=== PATIENT | female | born 1945 | race Caucasian/White ===

== ENCOUNTER 2017-05-11 07:12 | Inpatient (IN) | payer BC, MEDICARE ==
[2017-05-11] VITALS (19 sets, daily range): BP systolic 113–175; BP diastolic 59–94; PULSE 53–97; RESP 16–17; TEMP 96.7–98.4; O2SAT 95–100
[~2017-05-11 07:12] MED LIST: ACET325 PO; ACTO5TAB PO; BACL20TA PO; CALC250T PO; DIAZ5 PO; DILA2TAB4 PO; FISH1000 PO; FOLI400T30 PO; GABA300 PO; RALO1TAB13 PO; TRAZ100 PO; VITA100T15 PO; VITA250T32 PO; VITA400C28 PO
--- NOTE | 2017-05-11 07:21 | PD ---
HPI Chief Complaint: altered mental status Time Seen by Provider: 07:16 Travel History International Travel<30 days: No Contact w/Intl Traveler<30days: No Traveled to known affect area: No History of Present Illness HPI 71-year-old female patient presents to the ER today brought in by EMS because neighbors found her down on the ground, unresponsive. When EMS got there, they found that she was breathing was shallow respirations at 10 breaths per minute and intubated her for airway protection. She had fairly little response. She is intubated and unresponsive in the ER. She was last seen normal at dinner half ago. Modifying Factors: None Associated Signs & Symptoms: Unresponsive, intubated Risk Factors: Elderly PFSH Past Medical History Blood Disorders: No Cancer: Yes (LEFT BREAST) Diabetes: No Glaucoma: No Hepatitis: No Hiatal Hernia: No Hypertension: No Thyroid Disease: No Tubal Ligation: Yes Past Surgical History Abdominal Surgery: Yes (GASTRIC RESECTION WITH VAGOTOMY) Gynecologic Surgery: Yes (LT MASTECTOMY WITH RECONSTRUCTION '94 TUBAL LIGATION) Pacemaker: No Social History Alcohol Use: No Tobacco Use: Yes (ONE PPD) Allergies-Medications (Allergen,Severity, Reaction): Coded Allergies: Aspirin (Unverified Allergy, Mild, STOMACH IRRITATION, 05/05/11) No Known Allergies (Verified , 05/05/11) Reported Meds & Prescriptions Reported Meds & Active Scripts Active Active Prescriptions or Reported Medications Unobtainable Review of Systems ROS Limitations: Intubated, Altered Mental Status Physical Exam Narrative GENERAL: Thin elderly white female patient who is intubated, unresponsive to painful stimuli. SKIN: Focused skin assessment warm/dry. HEAD: Atraumatic. Normocephalic. EYES: Pupils equal and round. No scleral icterus. No injection or drainage. ENT: No nasal bleeding or discharge. Mucous membranes pink and moist. NECK: Trachea midline. No JVD. CARDIOVASCULAR: Regular rate and rhythm. No murmur appreciated. RESPIRATORY: No accessory muscle use. Clear to auscultation. Breath sounds equal bilaterally. GASTROINTESTINAL: Abdomen soft, non-tender, nondistended. Hepatic and splenic margins not palpable. MUSCULOSKELETAL: No obvious deformities. No clubbing. No cyanosis. No edema. NEUROLOGICAL: Intubated. Unresponsive to painful stimuli. Data Data Last Documented VS Vital Signs Date Time Temp Pulse Resp B/P Pulse Ox O2 Delivery O2 Flow Rate FiO2 05/11/17 08:30 100 100 05/11/17 07:55 66 16 136/76 05/11/17 07:48 96.7 05/11/17 07:36 Ventilator Orders Electrocardiogram (05/11/17 07:16) Ammonia (05/11/17 07:16) Complete Blood Count With Diff (05/11/17 07:16) Comprehensive Metabolic Panel (05/11/17 07:16) Creatine Kinase (Cpk) (05/11/17 07:16) Prothrombin Time / Inr (Pt) (05/11/17 07:16) Act Partial Throm Time (Ptt) (05/11/17 07:16) Troponin I (05/11/17 07:16) Thyroid Stimulating Hormone (05/11/17 07:16) Urinalysis - C+S If Indicated (05/11/17 07:16) Arterial Blood Gas (Abg) (05/11/17 07:16) Blood Culture (05/11/17 07:16) Chest, Single Ap (05/11/17 07:16) Ct Brain W/O Iv Contrast(Rout) (05/11/17 07:16) Blood Glucose (05/11/17 07:16) Ecg Monitoring (05/11/17 07:16) Iv Access Insert/Monitor (05/11/17 07:16) Oximetry (05/11/17 07:16) Urinary Catheter Insert/Apply (05/11/17 07:16) Sodium Chloride 0.9% Flush (Ns Flush) (05/11/17 07:30) Drug Screen, Random Urine (05/11/17 07:16) Alcohol (Ethanol) (05/11/17 07:16) Propofol 1000 Mg/100 Ml Inj (Diprivan 10 (05/11/17 07:51) Propofol 200 Mg/20 Ml Inj (Diprivan 200 (05/11/17 08:00) Propofol 1000 Mg/100 Ml Inj (Diprivan 10 (05/11/17 08:00) Pelvis, Ap Only (Routine) (05/11/17 07:56) CKMB (05/11/17 07:30) CKMB% (05/11/17 07:30) Sodium Chlor 0.9% 1000 Ml Inj (Ns 1000 M (05/11/17 09:15) Potassium, Serum (K) (05/11/17 09:07) Admit Order (Ed Use Only) (05/11/17 09:34) Labs Laboratory Tests Test 05/11/17 05/11/17 05/11/17 07:30 07:45 09:10 White Blood Count 15.9 TH/MM3 Red Blood Count 4.23 MIL/MM3 Hemoglobin 14.7 GM/DL Hematocrit 42.1 % Mean Corpuscular Volume 99.4 FL Mean Corpuscular Hemoglobin 34.7 PG Mean Corpuscular Hemoglobin 34.9 % Concent Red Cell Distribution Width 12.7 % Platelet Count 325 TH/MM3 Mean Platelet Volume 8.3 FL Neutrophils (%) (Auto) 88.2 % Lymphocytes (%) (Auto) 3.7 % Monocytes (%) (Auto) 8.0 % Eosinophils (%) (Auto) 0.0 % Basophils (%) (Auto) 0.1 % Neutrophils # (Auto) 14.0 TH/MM3 Lymphocytes # (Auto) 0.6 TH/MM3 Monocytes # (Auto) 1.3 TH/MM3 Eosinophils # (Auto) 0.0 TH/MM3 Basophils # (Auto) 0.0 TH/MM3 CBC Comment DIFF FINAL Differential Comment Prothrombin Time 10.4 SEC Prothromb Time International 0.9 RATIO Ratio Activated Partial 26.0 SEC Thromboplast Time Ammonia 16 MCMOL/L Urine Color YELLOW Urine Turbidity CLEAR Urine pH 6.5 Urine Specific [place] 1.014 Urine Protein TRACE mg/dL Urine Glucose (UA) NEG mg/dL Urine Ketones 10 mg/dL Urine Occult Blood NEG Urine Nitrite NEG Urine Bilirubin NEG Urine Urobilinogen LESS THAN 2.0 MG/DL Urine Leukocyte Esterase NEG Urine RBC LESS THAN 1 /hpf Urine WBC 1 /hpf Microscopic Urinalysis Comment CATH-CULT NOT IND Urine Opiates Screen NEG Urine Barbiturates Screen NEG Urine Amphetamines Screen NEG Urine Benzodiazepines Screen POS Urine Cocaine Screen NEG Urine Cannabinoids Screen NEG Sodium Level 129 MEQ/L Potassium Level 6.5 MEQ/L Chloride Level 97 MEQ/L Carbon Dioxide Level 27.9 MEQ/L Anion Gap 4 MEQ/L Blood Urea Nitrogen 24 MG/DL Creatinine 1.35 MG/DL Estimat Glomerular Filtration 39 ML/MIN Rate Random Glucose 140 MG/DL Calcium Level 9.3 MG/DL Total Bilirubin 0.3 MG/DL Aspartate Amino Transf 45 U/L (AST/SGOT) Alanine Aminotransferase 31 U/L (ALT/SGPT) Alkaline Phosphatase 112 U/L Total Creatine Kinase 528 U/L Creatine Kinase MB 17.4 NG/ML Creatine Kinase MB % 3.3 % Troponin I LESS THAN 0.02 NG/ML Total Protein 8.0 GM/DL Albumin 4.1 GM/DL Thyroid Stimulating Hormone 0.596 uIU/ML 3rd Gen Ethyl Alcohol Level LESS THAN 3 MG/DL MDM Medical Decision Making Medical Screen Exam Complete: Yes Emergency Medical Condition: Yes Medical Record Reviewed: Yes Interpretation(s) Laboratory Tests Test 05/11/17 05/11/17 05/11/17 07:30 07:45 09:10 White Blood Count 15.9 TH/MM3 (4.0-11.0) Mean Corpuscular Hemoglobin 34.7 PG (27.0-34.0) Neutrophils (%) (Auto) 88.2 % (16.0-70.0) Lymphocytes (%) (Auto) 3.7 % (9.0-44.0) Neutrophils # (Auto) 14.0 TH/MM3 (1.8-7.7) Lymphocytes # (Auto) 0.6 TH/MM3 (1.0-4.8) Monocytes # (Auto) 1.3 TH/MM3 (0-0.9) Urine Ketones 10 mg/dL (NEG) Urine Benzodiazepines Screen POS (NEG) Sodium Level 129 MEQ/L (136-145) Potassium Level 6.5 MEQ/L (3.5-5.1) Chloride Level 97 MEQ/L (98-107) Anion Gap 4 MEQ/L (5-15) Blood Urea Nitrogen 24 MG/DL (7-18) Creatinine 1.35 MG/DL (0.50-1.00) Estimat Glomerular Filtration 39 ML/MIN (>89) Rate Random Glucose 140 MG/DL (74-106) Aspartate Amino Transf 45 U/L (15-37) (AST/SGOT) Total Creatine Kinase 528 U/L (26-192) Creatine Kinase MB 17.4 NG/ML (0.5-3.6) Troponin I LESS THAN 0.02 NG/ML (0.02-0.05) Last 24 hours Impressions Pelvis X-Ray 05/11/17 2826 Signed Impressions: Service Date/Time: Thursday, May 11, 2017 07:58 - CONCLUSION: No definite acute bony injury Jeffery Donaldson MD Head CT 05/11/17715 Signed Impressions: Service Date/Time: Thursday, May 11, 2017 08:32 - CONCLUSION: 1. No acute intracranial abnormality is identified. 2. 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 Jeffery Grace MD Chest X-Ray 05/11/17715 Signed Impressions: Service Date/Time: Thursday, May 11, 2017 07:42 - CONCLUSION: 1. Hyperinflation of both lungs with mild patchy opacity at the left lung base which may represent atelectasis or possible scarring. 2. Nasogastric tube in place and could be advanced at least 8 cm. Anjum Moon MD Differential Diagnosis Unresponsive, intubatedICH versus metabolic issues versus dehydration Narrative Course Initial chest x-ray shows that the ET tube appears to be in place. X-ray of the pelvis did not show any obvious pelvic fractures. Initial lab work was ordered for the patient for further evaluation of her altered mental status. CT of the brain did not reveal any signs of acute intracranial processes. She has an ABG which did not show significant pH ALTERATIONS for significant hypercapnia. Lab work shows elevated potassium but it was hemolyzed and redraw was done. She has significant hyponatremia and IV fluids were initiated. BUN and creatinine also indicates underlying dehydration and some underlying rhabdomyolysis. Patient's white blood cell count was fairly elevated for unknown reason. Chest x-ray did show some mild questionable atelectasis and at this point, my plan would be to admit the patient for further treatment. Case is discussed extensively with Dr. Gil who agrees to admit the patient to ICU. He would like me to also put in CT of the abdomen pelvis and chest for further evaluation of causes of patient's altered mental status. Aggregate critical care time was 30 minutes. Time to perform other separately billable procedures was not included in the critical care time. My time did not include minutes spent treating any other patients simultaneously or on activities that did not directly contribute to the patient's treatment. The services I provided to this patient were to treat and/or prevent clinically significant deterioration that could result in: Respiratory arrest, cardiopulmonary arrest, intracranial bleed, I provided critical care services requiring my management, as noted below: Chart data review, documentation time, medication orders and management, vital sign assessments/reviewing monitor data, ordering and reviewing lab tests, ordering and interpreting/reviewing x-rays and diagnostic studies, care of the patient and discussion of the patient with the admitting physicians. Diagnosis Primary Impression: Endotracheally intubated Additional Impressions: Hyponatremia Altered mental status Admitting Information Admitting Physician Requests: Admit Scripts Unable to Obtain Active Prescriptions or Reported Meds Oralia Jc MD May 11, 2017 07:21
[2017-05-11] MEDS ORDERED: SODIUM CHLORIDE 0.9% FLUSH 5 ML FLUSH IV FLUSH PRN (07:30)
[2017-05-11] MEDS ORDERED: PROPOFOL 1000 MG/100 ML INJ 100 ML ONE (07:51)
[2017-05-11 07:52] LABS: BASOPHIL % 0.1 % (0.0-2.0); HEMATOCRIT 42.1 % (35.0-46.0); HEMO FLAGS DIFF FINAL; LYMPH % 3.7 % (9.0-44.0); LYMPHOCYTE # 0.6 TH/MM3 (1.0-4.8); MEAN CELL VOLUME 99.4 FL (80.0-100.0); MEAN CORPUSCULAR HEMOGLOBIN 34.7 PG (27.0-34.0); MEAN CORPUSCULAR HGB CONC 34.9 % (32.0-36.0); NEUT % 88.2 % (16.0-70.0); PLATELET COUNT 325 TH/MM3 (150-450); RED BLOOD COUNT 4.23 MIL/MM3 (4.00-5.30); RED CELL DISTRIBUTION WIDTH 12.7 % (11.6-17.2); WHITE BLOOD COUNT 15.9 TH/MM3 (4.0-11.0)
[2017-05-11 07:57] LABS: INTERNATIONAL NORMALIZED RATIO 0.9 RATIO; PROTHROMBIN TIME - PATIENT 10.4 SEC (9.8-11.6)
[2017-05-11] MEDS ORDERED: PROPOFOL 1000 MG/100 ML INJ 100 ML IV SCH (08:00)
[2017-05-11] MEDS ORDERED: PROPOFOL 200 MG/20 ML AMP IV ONE (08:00)
--- NOTE | 2017-05-11 08:00 | RADRPT ---
EXAM DATE/TIME: 05/11/2017 07:42 [facility] COMPARISON: No previous studies available for comparison. INDICATIONS : Syncope. MEDICAL HISTORY : None. SURGICAL HISTORY : None. ENCOUNTER: Initial ACUITY: 1 day PAIN SCORE: Non-responsive. LOCATION: Bilateral chest FINDINGS: A single view of the chest demonstrates the lungs to be symmetrically hyperinflated. A nasogastric tu be is present with the tip in the proximal stomach. The side-port is present in the distal esophagus. There are surgical clips in the region the gastroesophageal junction. The patient is status post kyp hoplasty in the upper lumbar spine. There is no evidence of mass, confluent infiltrate or effusion. T here is mild patchy opacity at the left lung base. Surgical clips are present in the left axilla. The cardiomediastinal contours are unremarkable. The osseous structures are otherwise unremarkable. CONCLUSION: 1. Hyperinflation of both lungs with mild patchy opacity at the left lung base which may represent at electasis or possible scarring. 2. Nasogastric tube in place and could be advanced at least 8 cm. Anjum Moon MD on May 11, 2017 at 7:57 Board Certified Radiologist. This report was verified electronically.
[2017-05-11 08:10] LABS: BLOOD, URINE NEG (NEG); COMMENT (UR) CATH-CULT NOT IND; CULTURE IF INDICATED CATH CULTURE NOT IND; GLUCOSE,URINE NEG (NEG); KETONE, URINE 10 mg/dL (NEG); NITRITE,URINE NEG (NEG); PH, URINE 6.5 (5.0-8.5); URINE COLOR YELLOW (YELLW/STRAW)
[2017-05-11 08:36] LABS: ANION GAP 4 MEQ/L (5-15); AST (GOT) 45 U/L (15-37); BICARBONATE 27.9 MEQ/L (21.0-32.0); BLOOD UREA NITROGEN 24 MG/DL (7-18); CHLORIDE 97 MEQ/L (98-107); GLOMERULAR FILTRATION RATE 39 ML/MIN (>89); SODIUM (NA) 129 MEQ/L (136-145)
[2017-05-11 08:45] LABS: ALKALINE PHOSPHATASE 112 U/L (45-117); ALT (GPT) 31 U/L (10-53); CREATINE KINASE 528 U/L (26-192); TOTAL BILIRUBIN ADULT 0.3 MG/DL (0.2-1.0)
[2017-05-11 08:46] LABS: ALCOHOL LESS THAN 3 MG/DL (0-5); POTASSIUM 6.5 MEQ/L (3.5-5.1)
[2017-05-11 09:06] LABS: CKMB 17.4 NG/ML (0.5-3.6)
[2017-05-11] MEDS ORDERED: SODIUM CHLOR 0.9% 1000 ML INJ 1,000 ML IV ONE ×3 (09:15→13:45)
--- NOTE | 2017-05-11 09:16 | RADRPT ---
EXAM DATE/TIME: 05/11/2017 08:32 [facility] COMPARISON: No previous studies available for comparison. INDICATIONS : Unresponsive RADIATION DOSE: 27.68 CTDIvol (mGy) MEDICAL HISTORY : Metastatic, breast. SURGICAL HISTORY : Mastectomy, left. Tubal ligation.Gastric resection ENCOUNTER: Initial ACUITY: 1 day PAIN SCALE: Non-responsive LOCATION: cranial TECHNIQUE: Multiple contiguous axial images were obtained of the head. Using automated exposure control and adj ustment of the mA and/or kV according to patient size, radiation dose was kept as low as reasonably a chievable to obtain optimal diagnostic quality images. DICOM format image data is available electro nically for review and comparison. FINDINGS: CEREBRUM: There is mild cerebral atrophy. Ventricles are normal. There is encephalomalacia in the right basal g anglia related to old ischemic event. There is mild enlargement of the right frontal horn. Calcificat ion is present within the intracranial internal carotid arteries. No evidence of midline shift, mass lesion, hemorrhage or acute infarction. No extra-axial fluid collections are seen. POSTERIOR FOSSA: The cerebellum and brainstem are intact. The 4th ventricle is midline. The cerebellopontine angle i s unremarkable. EXTRACRANIAL: Visualized sinuses are clear. There is fluid pooling in the dependent aspect of the nasopharynx. SKULL: The calvaria is intact. No evidence of skull fracture. CONCLUSION: 1. No acute intracranial abnormality is identified. 2. 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 Jeffery Grace MD on May 11, 2017 at 9:09 Board Certified Radiologist. This report was verified electronically.
--- NOTE | 2017-05-11 09:28 | RADRPT ---
EXAM DATE/TIME: 05/11/2017 07:58 [facility] COMPARISON: No previous studies available for comparison. INDICATIONS : Fall. MEDICAL HISTORY : None. SURGICAL HISTORY : None. ENCOUNTER: Initial ACUITY: 1 day PAIN SCORE: Non-responsive. LOCATION: Bilateral chest FINDINGS: Patient is rotated. I see no definite hip fracture or dislocation. No definite pelvic cortical disrup tion is identified. There are vascular calcifications noted. Mild distention of visualized bowel. CONCLUSION: No definite acute bony injury Jeffery Donaldson MD on May 11, 2017 at 9:25 Board Certified Radiologist. This report was verified electronically.
[2017-05-11] MEDS ORDERED: MISCELLANEOUS NURSING INFORMATION XX SCH (09:45)
[2017-05-11] MEDS ORDERED: RESP: ALBUTEROL 2.5 MG/IPRATROPIUM 0.5 MG NEB (PRN) INH (09:45)
[2017-05-11] MEDS ORDERED: CHLORHEXIDINE GLUCONATE 2 % 1 PACK (2 CLOTHS) TOP PRN (09:45)
[2017-05-11 09:46] LABS: BLOOD GAS BASE EXCESS 3.1 mmol/L (-2-2); BLOOD GAS CARBOXYHEMOGLOBIN 0.3 % (0-4); BLOOD GAS HCO3 27 mmol/L (22-26); BLOOD GAS METHEMOGLOBIN 0.5 % (0-2); BLOOD GAS O2 HGB SATURATION 98 % (90-100); BLOOD GAS PCO2 40 mmHg (38-42); BLOOD GAS PO2 307 mmHG (61-120); BLOOD GAS TOTAL HGB 13.4 G/DL (12.0-16.0); CRITICAL VALUE NO; FIO2 100 %; OXYGEN DEVICE VENTILATOR; TEMP CORR TO 98.6; VENT SETTINGS AC/350/16/+5
[2017-05-11 09:47] LABS: DRAW SITE RT FEMORAL; NUMBER OF ARTERIAL PUNCTURES 1; STAT YES
[2017-05-11] MEDS: RESP: ALBUTEROL 2.5 MG/IPRATROPIUM 0.5 MG NEB (SCH) NEB ×3 (10:01→20:59)
[2017-05-11] MEDS: ENOXAPARIN SODIUM 30 MG/0.3 ML SYRINGE SQ SCH (10:59)
[2017-05-11] MEDS: PIPERACIL-TAZO 3.375 GM PREMIX 50 ML IV SCH ×3 (10:59→22:09)
[2017-05-11] MEDS: SODIUM CHLOR 0.9% 1000 ML INJ 1,000 ML IV SCH ×2 (10:59→16:03)
[2017-05-11] MEDS ORDERED: IODIXANOL 320 MG/ML 10 ML VIAL (for Rad CT) IV ONE (11:45)
--- NOTE | 2017-05-11 12:20 | RADRPT ---
EXAM DATE/TIME: 05/11/2017 11:35 [facility] COMPARISON: No previous studies available for comparison. INDICATIONS : Patient found unresponsive IV CONTRAST: 50 cc Visipaque (iodixanol) IV ; Cumulative dose for multiple exams. ORAL CONTRAST: No oral contrast ingested. RADIATION DOSE: 4.97 CTDIvol (mGy) ; Combined studies - Thorax/Abdomen/Pelvis MEDICAL HISTORY : Non-responsive. SURGICAL HISTORY : Non-responsive. ENCOUNTER: Initial ACUITY: 1 day PAIN SCALE: Non-responsive LOCATION: abdomen TECHNIQUE: Volumetric scanning of the abdomen and pelvis was performed. Using automated exposure control and ad justment of the mA and/or kV according to patient size, radiation dose was kept as low as reasonably achievable to obtain optimal diagnostic quality images. DICOM format image data is available electro nically for review and comparison. FINDINGS: LOWER LUNGS: The visualized lower lungs are clear. LIVER: The intrahepatic biliary ducts are dilated. Common bile is dilated measuring 12 mm. Gallbladder is di stended. Small clip is identified in the dequan hepatis. There are no suspicious space-occupying lesio ns within the liver. SPLEEN: Normal size without lesion. PANCREAS: The main pancreatic duct measures 6 mm. There is no clearly definable pancreatic mass or inflammatory disease. KIDNEYS: Normal in size and shape. There is no mass, stone or hydronephrosis. ADRENAL GLANDS: Within normal limits. VASCULAR: Heavily calcified plaque is present throughout the abdominal aorta. BOWEL/MESENTERY: The stomach, small bowel, and colon demonstrate no acute abnormality. There is no free intraperitone al air or fluid. ABDOMINAL WALL: Within normal limits. RETROPERITONEUM: There is no lymphadenopathy. BLADDER: Hayes catheter is in place. REPRODUCTIVE: Within normal limits. INGUINAL: There is no lymphadenopathy or hernia. MUSCULOSKELETAL: Significant arthropathy is noted in the lower lumbar spine. Bone cement is identified in the L2 verte bral body consistent with prior vertebral body augmentation. CONCLUSION: 1. Dilated biliary tree and main pancreatic duct with associated distention of the gallbladder charac teristic of a distal common bile duct obstructing process. 2. No evidence of a pancreatic mass 3. Post surgical clip is identified in the dequan hepatis which may be related to the patient's obstru ctive process. 4. Side port of nasogastric tube is in the distal esophagus. Ihsan Perdomo MD on May 11, 2017 at 12:08 Board Certified Radiologist. This report was verified electronically.
--- NOTE | 2017-05-11 12:33 | RADRPT ---
EXAM DATE/TIME: 05/11/2017 11:35 [facility] COMPARISON: No previous studies available for comparison. INDICATIONS : Pneumonia IV CONTRAST: 50 cc Visipaque (iodixanol) IV ; Cumulative dose for multiple exams. RADIATION DOSE: 4.97 CTDIvol (mGy) ; Combined studies - Thorax/Abdomen/Pelvis MEDICAL HISTORY : Non-responsive. SURGICAL HISTORY : Non-responsive. ENCOUNTER: Initial ACUITY: 1 day PAIN SCALE: Non-responsive LOCATION: chest TECHNIQUE: Volumetric scanning of the chest was performed. Using automated exposure control and adjustment of t he mA and/or kV according to patient size, radiation dose was kept as low as reasonably achievable to obtain optimal diagnostic quality images. DICOM format image data is available electronically for review and comparison. Follow-up recommendations for detected pulmonary nodules are based at a minimum on nodule size and pa tient risk factors according to Fleischner Society Guidelines. FINDINGS: LUNGS: Small nodular densities are identified in both lungs. The largest measures 7.6 mm and is located in t he posterior costophrenic angle of the right lower lobe. Pleural-based subsegmental airspace disease is identified in the superior segment of the left lo wer lobe. Mild bronchiectasis with peribronchial thickening, inflammation and/or scarring is identified in the right middle lobe and lingula. PLEURA: There is no pleural thickening or pleural effusion. MEDIASTINUM: The heart and great vessels demonstrate no acute abnormality. There is no mediastinal or hilar lymph adenopathy. AXILLAE: Within normal limits. No lymphadenopathy. SKELETAL: Within normal limits for patient age. MISCELLANEOUS: Dilatation of the biliary tree is noted. Collapsed bilateral breast implants are noted. CONCLUSION: 1. Small bilateral noncalcified pulmonary nodules ranging in size up to 7.6 mm. 2. Left lower lobe, right middle lobe and lingular airspace disease 3. No evidence of malignant lymphadenopathy 4. Collapsed bilateral breast implants. 5. Biliary duct dilatation Ihsan Perdomo MD on May 11, 2017 at 12:18 Board Certified Radiologist. This report was verified electronically.
--- NOTE | 2017-05-11 13:09 | HHI.HP ---
[facility] Service Critical Care Medicine Primary Care Physician Unknown Admission Diagnosis altered mental status/intubated/severe hyponatremia Diagnosis: (1) Acute encephalopathy Diagnosis: Principal (2) Acute respiratory failure Diagnosis: Principal (3) Severe sepsis Diagnosis: Principal (4) Acute kidney injury Diagnosis: Principal (5) Acute hyperkalemia Diagnosis: Principal (6) Probable pneumonia Diagnosis: Principal (7) Probable CBD obstruction Diagnosis: Principal (8) Leukocytosis Diagnosis: Principal (9) Rhabdomyolysis Diagnosis: Principal (10) Dehydration Diagnosis: Principal (11) Hyponatremia Diagnosis: Principal Chief Complaint: Unresponsive at home Travel History International Travel<30 Days: No Contact w/Intl Traveler <30 Da: No Traveled to Known Affected Are: No Sepsis Criteria SIRS Criteria (2 or more): Temp > 100.9 or < 96.8, WBC > 12707, < 4000 or > 10 % bands Sepsis Criteria (SIRS+source): Infect source susp/known Severe Sepsis (+one): Acute Oliguria/Renal Failure Criteria Outcome: Meets severe sepsis criteria History of Present Illness Patient is a 71-year-old female with known past medical history of left breast cancer, tobacco abuse. Unfortunately no further history can be obtained as the patient is intubated and there is no family available. According to the ER history, patient was brought in by EMS after neighbors found her down on the floor, unresponsive. She was found with shallow respirations hypopneic and was intubated for airway protection. She was last seen normal about 1-1/2 days ago. In the ER patient remained unresponsive. CT of the head was unremarkable. Abnormal labs included a white count of 15.9 with 88% neutrophils , sodium 129 potassium 6.5, BUN 24 and creatinine of 1.35. CPK was elevated at 528. Patient received IV fluid boluses. Patient's elevated white count and altered mentation was suspicious for sepsis. I have ordered CT chest abdomen pelvis which showed mild chest infiltrates, and evidence of common bile duct obstruction (bilateral dilated biliary tree, main pancreatic duct, and gallbladder dilation). I have started patient on Zosyn 3.375 g every 6 hours, and single dose of vancomycin. Gastroenterology had been consulted. Initial K was 6.5 but this was hemolyzed. Repeat CMP is pending I evaluated patient in ED. patient is clinically dehydrated and remains encephalopathy. Additional fluid boluses ordered and start antibiotics STAT, if not given in ED. Gastroenterology had been consulted for possible common bile duct obstruction Review of Systems ROS Limitations: Intubated, Altered Mental Status Past Family Social History Allergies: Coded Allergies: Aspirin (Unverified Allergy, Mild, STOMACH IRRITATION, 05/05/11) No Known Allergies (Verified , 05/11/17) Past Medical History Left breast cancer Tobacco abuse Past Surgical History Gastric resection with vagotomy Left mastectomy Tubal ligation Reported Medications Unable to obtain Active Ordered Medications Reviewed Family History Unable to obtain Social History Unable to obtain. ER records indicate smoking 1 pk per day Physical Exam Vital Signs Vital Signs Date Time Temp Pulse Resp B/P Pulse Ox O2 Delivery O2 Flow Rate FiO2 05/11/17 12:01 100 05/11/17 11:55 100 40 05/11/17 10:55 53 16 124/72 100 05/11/17 10:55 40 05/11/17 08:30 100 100 05/11/17 07:56 100 05/11/17 07:55 66 16 136/76 100 05/11/17 07:48 96.7 05/11/17 07:36 100 Ventilator 100 05/11/17 07:36 100 Ventilator 100 05/11/17 07:15 79 16 175/94 100 05/11/17 07:10 99 100 05/11/17 07:10 99 Ventilator 100 Physical Exam GENERAL: Thin disheveled elderly white female patient who is intubated, unresponsive SKIN: Warm/dry. HEAD: Atraumatic. Normocephalic. EYES: Pupils equal and round. No injection or drainage. ENT: No nasal bleeding or discharge. Orotracheally intubated NECK: Trachea midline. No JVD. CARDIOVASCULAR: Regular rate and rhythm. No murmur appreciated. RESPIRATORY: No accessory muscle use. Clear to auscultation. Breath sounds equal bilaterally. GASTROINTESTINAL: Abdomen soft, non-tender, nondistended. Hepatic and splenic margins not palpable. MUSCULOSKELETAL: No obvious deformities. No clubbing. No cyanosis. No edema. NEUROLOGICAL: Intubated, sedated with propofol. No spontaneous eye opening on propofol. Intermittently moves all 4 extremities to noxious stimuli Laboratory Laboratory Tests Test 05/11/17 05/11/17 05/11/17 05/11/17 07:30 07:45 09:04 09:10 White Blood Count 15.9 Red Blood Count 4.23 Hemoglobin 14.7 Hematocrit 42.1 Mean Corpuscular Volume 99.4 Mean Corpuscular Hemoglobin 34.7 Mean Corpuscular Hemoglobin 34.9 Concent Red Cell Distribution Width 12.7 Platelet Count 325 Mean Platelet Volume 8.3 Neutrophils (%) (Auto) 88.2 Lymphocytes (%) (Auto) 3.7 Monocytes (%) (Auto) 8.0 Eosinophils (%) (Auto) 0.0 Basophils (%) (Auto) 0.1 Neutrophils # (Auto) 14.0 Lymphocytes # (Auto) 0.6 Monocytes # (Auto) 1.3 Eosinophils # (Auto) 0.0 Basophils # (Auto) 0.0 CBC Comment DIFF FINAL Differential Comment Prothrombin Time 10.4 Prothromb Time International 0.9 Ratio Activated Partial 26.0 Thromboplast Time Ammonia 16 Urine Color YELLOW Urine Turbidity CLEAR Urine pH 6.5 Urine Specific [place] 1.014 Urine Protein TRACE Urine Glucose (UA) NEG Urine Ketones 10 Urine Occult Blood NEG Urine Nitrite NEG Urine Bilirubin NEG Urine Urobilinogen LESS THAN 2.0 Urine Leukocyte Esterase NEG Urine RBC LESS THAN 1 Urine WBC 1 Microscopic Urinalysis Comment CATH-CULT NOT IND Urine Opiates Screen NEG Urine Barbiturates Screen NEG Urine Amphetamines Screen NEG Urine Benzodiazepines Screen POS Urine Cocaine Screen NEG Urine Cannabinoids Screen NEG Blood Gas Puncture Site RT FEMORAL Blood Gas Patient Temperature 98.6 Blood Gas HCO3 27 Blood Gas Base Excess 3.1 Blood Gas Oxygen Saturation 98 Arterial Blood pH 7.44 Arterial Blood Partial 40 Pressure CO2 Arterial Blood Partial 307 Pressure O2 Arterial Blood Oxygen Content 19.0 Arterial Blood 0.3 Carboxyhemoglobin Arterial Blood Methemoglobin 0.5 Blood Gas Hemoglobin 13.4 Oxygen Delivery Device VENTILATOR Blood Gas Ventilator Setting AC/350/16/+5 Blood Gas Inspired Oxygen 100 Sodium Level 129 Potassium Level 6.5 Chloride Level 97 Carbon Dioxide Level 27.9 Anion Gap 4 Blood Urea Nitrogen 24 Creatinine 1.35 Estimat Glomerular Filtration 39 Rate Random Glucose 140 Calcium Level 9.3 Total Bilirubin 0.3 Aspartate Amino Transf 45 (AST/SGOT) Alanine Aminotransferase 31 (ALT/SGPT) Alkaline Phosphatase 112 Total Creatine Kinase 528 Creatine Kinase MB 17.4 Creatine Kinase MB % 3.3 Troponin I LESS THAN 0.02 Total Protein 8.0 Albumin 4.1 Thyroid Stimulating Hormone 0.596 3rd Gen Ethyl Alcohol Level LESS THAN 3 Test 05/11/17 10:00 Lactic Acid Level 0.9 Date/Time Procedure Status Source Growth 05/11/17 07:30 Aerobic Blood Culture Received Blood Peripheral Pending 05/11/17 07:30 Anaerobic Blood Culture Received Blood Peripheral Pending Result Diagram: 05/11/17 0730 05/11/[address] chest: Bilateral infiltrates CT abdomen: Dilated biliary tree, gallbladder and main pancreatic duct indicating distal CBD obstruction Septic Shock Reassessment Heart: Regular rate and rhythm Lungs: Clear Skin: Cold Peripheral Pulses: Weak Right Radial Weak Left Radial Assessment and Plan Assessment and Plan Assessment and Plan NEURO/PSYCH: Acute toxic metabolic encephalopathy - Altered mentation most likely from sepsis. Ct head negative for acute findings - Propofol for sedation and ventilator synchrony if needed - Daily sedation vacation - If not improving check EEG, MRI - Check B12. TSH Ammonia normal RESP: Acute respiratory failure Bilateral pneumonia/aspiration Tobacco abuse, possible COPD - Continue with vent support and keep sat >92% - Ventilator bundle. DuoNeb scheduled and when necessary - Daily SBT starting in 24 hours - CT chest shows mild bilateral infiltrates pneumonia versus aspiration CV: - Monitor HR and BP keep MAP>65mmHg GI: Probable distal biliary obstruction - CT abdomen pelvis shows dilated biliary tree, dilated main pancreatic duct, and dilated gallbladder suggestive of distal gallbladder obstruction - Gastroenterology consulted and further workup per GI - IV pantoprazole, bowel regimen - Keep nothing by mouth : Acute kidney injury- secondary to dehydration Rhabdomyolysis Hyperkalemia - Monitor renal function , I/O's, electrolytes replacement per protocol. - NS boluses x3 and IVF ant 150 ml pr hour - Repeat potassium level prior to treatment ID: Severe sepsis Bilateral pulmonary infiltrates present on admissions indicate the hospital aspiration versus pneumonia Probable common biliary duct obstruction - Start Zosyn and one dose of vancomycin. Levaquin for atypical coverage - Follow-up on sputum blood cultures. Urine for Legionella and pneumococcal antigen HEME: - Monitor CBC, CMP, coags ENDO: - Electrolyte replacement protocol PROPH: Bilateral lower extremity SCDs. SQ Lovenox, Protonix LINES: peripheral IVs CCT 82 min Patient is currently critically ill with severe sepsis and metabolic encephalopathy. Continue aggressive fluid resuscitation and start broad- spectrum antibiotics. GI consulted for probable common bile duct obstruction. Will continue to track family Code Status Full Discussed Condition With Dr. Barrett Problem Qualifiers (1) Leukocytosis: Qualified Code: D72.829 - Leukocytosis, unspecified type (2) Rhabdomyolysis: Levar Gil MD May 11, 2017 13:09
[2017-05-11] MEDS ORDERED: MAGNESIUM SULFATE INJ 2 GM in SODIUM CHLORIDE 0.9% INJ 96 ML IV PRN (13:45)
[2017-05-11] MEDS ORDERED: POTASSIUM PHOSPHATE MONOBASIC 500 MG TAB PO PRN (13:45)
[2017-05-11] MEDS ORDERED: POTASSIUM CHLORIDE 25 MEQ EFFERVESCENT TAB PO PRN (13:45)
[2017-05-11] MEDS ORDERED: POTASSIUM CHLOR 40 MEQ PREMIX 100 ML IV PRN ×2 (13:45)
[2017-05-11] MEDS ORDERED: POTASSIUM PHOSPHATE INJ 30 MMOL in SODIUM CHLOR 0.9% 250 ML INJ 250 ML IV PRN (13:45)
[2017-05-11] MEDS ORDERED: SODIUM PHOSPHATE INJ 30 MMOL in SODIUM CHLOR 0.9% 250 ML INJ 240 ML IV PRN (13:45)
[2017-05-11] MEDS ORDERED: POTASSIUM PHOSPHATE MONOBASIC 500 MG TAB PO/TUBE PRN (13:45)
[2017-05-11] MEDS ORDERED: MAGNESIUM OXIDE 400 MG TAB PO PRN (13:45)
[2017-05-11] MEDS ORDERED: VANCOMYCIN INJ 1,000 MG in SODIUM CHLOR 0.9% 250 ML INJ 250 ML IV ONE (13:45)
[2017-05-11] MEDS ORDERED: POTASSIUM CHLOR 20 MEQ PREMIX 100 ML IV PRN (13:45)
[2017-05-11] MEDS ORDERED: MAGNESIUM SULFATE INJ 4 GM in SODIUM CHLORIDE 0.9% INJ 92 ML IV PRN (13:45)
[2017-05-11 15:28] LABS: MAGNESIUM 1.7 MG/DL (1.5-2.5)
[2017-05-11 15:31] LABS: BICARBONATE 22.3 MEQ/L (21.0-32.0); POTASSIUM 3.2 MEQ/L (3.5-5.1); TOTAL BILIRUBIN ADULT 0.3 MG/DL (0.2-1.0)
--- NOTE | 2017-05-11 15:35 | PD.CONS ---
HPI History of Present Illness This is a 71 year old female with a history of left breast cancer, who was found unresponsive on the floor by her neighbors. She was brought to the ER by [facility]. She arrived with shallow respirations, hyponeic and was subsequently intubated for airway protection. According to the EMR, she was last seen about 1 and a half days ago. She was found to have an elevated WBC. Chest CT ()----> 1. Small bilateral noncalcified pulmonary nodules ranging in size up to 7.6 mm. 2. Left lower lobe, right middle lobe and lingular airspace disease 3. No evidence of malignant lymphadenopathy 4. Collapsed bilateral breast implants. 5. Biliary duct dilatation. CT abdomen and pelvis (05/11/17)-----> 1. Dilated biliary tree and main pancreatic duct with associated distention of the gallbladder characteristic of a distal common bile duct obstructing process. 2. No evidence of a pancreatic mass 3. Post surgical clip is identified in the dequan hepatis which may be related to the patient's obstructive process. 4. Side port of nasogastric tube is in the distal esophagus. GI was consulted for further evaluatin of suspected distal common bile duct obstructing process. She is currently in the ICU, sedated on the ventilator being treated for acute toxic metabolic encephalopathy, acute respiratory failure, bilateral pneumonia/ aspiration, probable distal biliary obstruction, acute kidney injury with electrolyte abnormalities, and rhabdomyolysis. Theresa Paz listed as next of kin /person to notify . Called and left message with her for to return call to discuss possible ERCP. PFSH Past Medical History COPD Hx PNA Hx encephalitis Breast cancer, s/p radical mastectomy with breast reconstruction, and chemotherapy Peptic ulcer disease, s/p partial gastrectomy and vagotomy Chronic pelvic pain Past Surgical History Radial mastectomy with breast reconstruction Tubal ligation Partial gastrectomy and vagotomy Surgery to remove distal part of clavicle after dislocation Steroid injections Coded Allergies: Aspirin (Unverified Allergy, Mild, STOMACH IRRITATION, 05/05/11) No Known Allergies (Verified , 05/11/17) Medications Allergies Coded Allergies Type Severity Reaction Last Updated Verified Aspirin Allergy Mild STOMACH IRRITATION 05/05/11 No No Known Allergies 05/11/17 Yes Active Scripts Medications Dose Route/Sig Days Date Category Active Prescriptions or Reported Medications Unobtainable Rx Family History Father had htn Mother from melanoma, CAD Social History Hx tobacco use. In 2007 note, she had been smoking 1PPD x 30 years. Unknown if currently smoking. Review of Systems ROS Unable to obtain. GI Exam Vitals I&O Vital Signs Date Time Temp Pulse Resp B/P Pulse Ox O2 Delivery O2 Flow Rate FiO2 05/11/17 12:01 100 05/11/17 11:55 100 40 05/11/17 10:55 53 16 124/72 100 05/11/17 10:55 40 05/11/17 08:30 100 100 05/11/17 07:56 100 05/11/17 07:55 66 16 136/76 100 05/11/17 07:48 96.7 05/11/17 07:36 100 Ventilator 100 05/11/17 07:36 100 Ventilator 100 05/11/17 07:15 79 16 175/94 100 05/11/17 07:10 99 100 05/11/17 07:10 99 Ventilator 100 Imaging Last Impressions Chest CT 05/11/17 0936 Signed Impressions: Service Date/Time: Thursday, May 11, 2017 11:35 - CONCLUSION: 1. Small bilateral noncalcified pulmonary nodules ranging in size up to 7.6 mm. 2. Left lower lobe, right middle lobe and lingular airspace disease 3. No evidence of malignant lymphadenopathy 4. Collapsed bilateral breast implants. 5. Biliary duct dilatation Ihsan Perdomo MD Abdomen/Pelvis CT 05/11/17 0936 Signed Impressions: Service Date/Time: Thursday, May 11, 2017 11:35 - CONCLUSION: 1. Dilated biliary tree and main pancreatic duct with associated distention of the gallbladder characteristic of a distal common bile duct obstructing process. 2. No evidence of a pancreatic mass 3. Post surgical clip is identified in the dequan hepatis which may be related to the patient's obstructive process. 4. Side port of nasogastric tube is in the distal esophagus. Ihsan Perdomo MD Pelvis X-Ray 05/11/17 0756 Signed Impressions: Service Date/Time: Thursday, May 11, 2017 07:58 - CONCLUSION: No definite acute bony injury Jeffery Donaldson MD Head CT 05/11/17 0716 Signed Impressions: Service Date/Time: Thursday, May 11, 2017 08:32 - CONCLUSION: 1. No acute intracranial abnormality is identified. 2. 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 Jeffery Grace MD Chest X-Ray 05/11/17 0716 Signed Impressions: Service Date/Time: Thursday, May 11, 2017 07:42 - CONCLUSION: 1. Hyperinflation of both lungs with mild patchy opacity at the left lung base which may represent atelectasis or possible scarring. 2. Nasogastric tube in place and could be advanced at least 8 cm. Anjum Moon MD Laboratory Test 05/11/17 05/11/17 05/11/17 05/11/17 07:30 07:45 09:04 09:10 White Blood Count 15.9 TH/MM3 Red Blood Count 4.23 MIL/MM3 Hemoglobin 14.7 GM/DL Hematocrit 42.1 % Mean Corpuscular Volume 99.4 FL Mean Corpuscular Hemoglobin 34.7 PG Mean Corpuscular Hemoglobin 34.9 % Concent Red Cell Distribution Width 12.7 % Platelet Count 325 TH/MM3 Mean Platelet Volume 8.3 FL Neutrophils (%) (Auto) 88.2 % Lymphocytes (%) (Auto) 3.7 % Monocytes (%) (Auto) 8.0 % Eosinophils (%) (Auto) 0.0 % Basophils (%) (Auto) 0.1 % Neutrophils # (Auto) 14.0 TH/MM3 Lymphocytes # (Auto) 0.6 TH/MM3 Monocytes # (Auto) 1.3 TH/MM3 Eosinophils # (Auto) 0.0 TH/MM3 Basophils # (Auto) 0.0 TH/MM3 CBC Comment DIFF FINAL Differential Comment Prothrombin Time 10.4 SEC Prothromb Time International 0.9 RATIO Ratio Activated Partial 26.0 SEC Thromboplast Time Ammonia 16 MCMOL/L Urine Color YELLOW Urine Turbidity CLEAR Urine pH 6.5 Urine Specific [place] 1.014 Urine Protein TRACE mg/dL Urine Glucose (UA) NEG mg/dL Urine Ketones 10 mg/dL Urine Occult Blood NEG Urine Nitrite NEG Urine Bilirubin NEG Urine Urobilinogen LESS THAN 2.0 MG/DL Urine Leukocyte Esterase NEG Urine RBC LESS THAN 1 /hpf Urine WBC 1 /hpf Microscopic Urinalysis Comment CATH-CULT NOT IND Urine Opiates Screen NEG Urine Barbiturates Screen NEG Urine Amphetamines Screen NEG Urine Benzodiazepines Screen POS Urine Cocaine Screen NEG Urine Cannabinoids Screen NEG Blood Gas Puncture Site RT FEMORAL Blood Gas Patient Temperature 98.6 Blood Gas HCO3 27 mmol/L Blood Gas Base Excess 3.1 mmol/L Blood Gas Oxygen Saturation 98 % Arterial Blood pH 7.44 Arterial Blood Partial 40 mmHg Pressure CO2 Arterial Blood Partial 307 mmHG Pressure O2 Arterial Blood Oxygen Content 19.0 Vol % Arterial Blood 0.3 % Carboxyhemoglobin Arterial Blood Methemoglobin 0.5 % Blood Gas Hemoglobin 13.4 G/DL Oxygen Delivery Device VENTILATOR Blood Gas Ventilator Setting AC/350/16/+5 Blood Gas Inspired Oxygen 100 % Sodium Level 129 MEQ/L Potassium Level 6.5 MEQ/L Chloride Level 97 MEQ/L Carbon Dioxide Level 27.9 MEQ/L Anion Gap 4 MEQ/L Blood Urea Nitrogen 24 MG/DL Creatinine 1.35 MG/DL Estimat Glomerular Filtration 39 ML/MIN Rate Random Glucose 140 MG/DL Calcium Level 9.3 MG/DL Total Bilirubin 0.3 MG/DL Aspartate Amino Transf 45 U/L (AST/SGOT) Alanine Aminotransferase 31 U/L (ALT/SGPT) Alkaline Phosphatase 112 U/L Total Creatine Kinase 528 U/L Creatine Kinase MB 17.4 NG/ML Creatine Kinase MB % 3.3 % Troponin I LESS THAN 0.02 NG/ML Total Protein 8.0 GM/DL Albumin 4.1 GM/DL Thyroid Stimulating Hormone 0.596 uIU/ML 3rd Gen Ethyl Alcohol Level LESS THAN 3 MG/DL Test 05/11/17 05/11/17 10:00 11:55 Lactic Acid Level 0.9 mmol/L Nasal Screen MRSA (PCR) MRSA DETECTED Date/Time Procedure Status Source Growth 05/11/17 07:30 Aerobic Blood Culture Received Blood Peripheral Pending 05/11/17 07:30 Anaerobic Blood Culture Received Blood Peripheral Pending Physical Examination HEENT: Normocephalic; atraumatic CHEST: Course breath sounds. OETT to vent. CARDIAC: ST ABDOMEN: Soft, nondistended, nontender; no hepatosplenomegaly; bowel sounds are present in all four quadrants. EXTREMITIES: No clubbing, cyanosis, or edema. SKIN: Dry skin [employer]: Sedated on vent Assessment and Plan Plan ASSESSMENT: - Dilated biliary tree and main pancreatic duct with associated distention of the galllbladder characteristic of distal common bile duct obstruction. CT abdomen and pelvis (05/11/17)-----> 1. Dilated biliary tree and main pancreatic duct with associated distention of the gallbladder characteristic of a distal common bile duct obstructing process. 2. No evidence of a pancreatic mass 3. Post surgical clip is identified in the dequan hepatis which may be related to the patient's obstructive process. 4. Side port of nasogastric tube is in the distal esophagus. LFTs T. Bili 0.3, AST 45, ALT 31, ALk PHosph 112. Rpt. pending. WBC 15.9. NPO. Levaquin, Zosyn, PPI. Did call daughter Theresa Paz to discuss possible ERCP, left message on voicemail. - Sepsis, likely multifactorial, CT consistent with biliary obstructive process , also found down with emesis bilateral pneumonia/aspiration. Levaquin, Zosyn, aggressive hydration. - Acute respiratory failure, bilateral pneumonia/aspiraiton. hest CT (05/11/17)- ---> 1. Small bilateral noncalcified pulmonary nodules ranging in size up to 7.6 mm. 2. Left lower lobe, right middle lobe and lingular airspace disease 3. No evidence of malignant lymphadenopathy 4. Collapsed bilateral breast implants. 5. Biliary duct dilatation. Vent per CCM. Levaquin, Zosyn. - Acute encephalopathy, per attending. - VERN with multiple electrolyte abnormalities. Creat 1.35, GFR 38, K+ 6.5, Na+ 129. - Rhabodmyolysis, mild. CPK 528. IVF - COPD, Hx chronic pelvic pain, - Hx Breast cancer, s/p radical mastectomy with breast reconstruction, and chemotherapy - Hx PUD, s/p partial gastrectomy and vagotomy PLAN: - Possible ERCP with sphincterotomy, stent placement tomorrow - Obtain consents - NPO - Cont. PPI - Cont. Zosyn/Levaquin - Cont. aggressive hydration - Add lipase to labs - CBC, CMP in am - Supportive care - Further recommendations ot follow based on results of above - Pt seen and examined by Dr. Moon and myself and this note is written on his behalf Cristina Goldberg May 11, 2017 15:35
[2017-05-11] MEDS: LEVOFLOXACIN 750 MG PREMIX INJ 150 ML IV SCH (16:02)
[2017-05-11] MEDS: POTASSIUM CHLOR 20 MEQ PREMIX 100 ML IV PRN ×4 (17:02→23:07)
[2017-05-11] MEDS ORDERED: CALCIUM GLUCONATE INJ 2 GM in SODIUM CHLORIDE 0.9% INJ 100 ML IV ONE (18:00)
[2017-05-11] MEDS: CHLORHEXIDINE 0.12% (ORAL KIT) 15 ML CUP MT SCH (19:53)
[2017-05-11] MEDS: PROPOFOL 1000 MG/100 ML INJ 100 ML IV SCH (20:21)
[2017-05-12] VITALS (52 sets, daily range): BP systolic 87–204; BP diastolic 53–93; PULSE 69–102; RESP 16–38; TEMP 97.4–99.3; O2SAT 97–100
[2017-05-12] MEDS: SODIUM CHLOR 0.9% 1000 ML INJ 1,000 ML IV SCH ×5 (00:30→21:43)
[2017-05-12] MEDS: CHLORHEXIDINE GLUCONATE 2 % 1 PACK (2 CLOTHS) TOP SCH (04:00)
[2017-05-12] MEDS: RESP: ALBUTEROL 2.5 MG/IPRATROPIUM 0.5 MG NEB (SCH) NEB ×4 (04:25→21:17)
--- NOTE | 2017-05-12 05:05 | RADRPT ---
EXAM DATE/TIME: 05/12/2017 03:56 [facility] COMPARISON: CHEST SINGLE AP, May 11, 2017, 7:42. INDICATIONS : Shortness of breath, possible pulmonary disease. MEDICAL HISTORY : Carcinoma, breast. SURGICAL HISTORY : Mastectomy, left. Tubal ligation. Gastric resection with vagotomy ENCOUNTER: Subsequent ACUITY: 2 days PAIN SCORE: Non-responsive. LOCATION: Bilateral chest FINDINGS: A single view of the chest demonstrates the lungs to be symmetrically aerated without evidence of mas s, infiltrate or effusion. Nasogastric tube tip in stomach. Endotracheal tube unchanged. The cardiome diastinal contours are unremarkable. Osseous structures are intact. Kyphoplasty cement within upper lumbar vertebral body. CONCLUSION: Clear lungs. NG tube with tip in stomach. Molina Henry MD on May 12, 2017 at 5:03 Board Certified Radiologist. This report was verified electronically.
[2017-05-12] MEDS: PIPERACIL-TAZO 3.375 GM PREMIX 50 ML IV SCH ×4 (05:23→21:45)
[2017-05-12 06:13] LABS: AUTOMATED NEUTROPHIL # 11.2 TH/MM3 (1.8-7.7); BASOPHIL # 0.1 TH/MM3 (0-0.2); BASOPHIL % 0.4 % (0.0-2.0); EOSINOPHIL % 0.1 % (0.0-4.0); HEMATOCRIT 39.1 % (35.0-46.0); HEMO FLAGS DIFF FINAL; LYMPH % 12.3 % (9.0-44.0); LYMPHOCYTE # 1.8 TH/MM3 (1.0-4.8); MEAN CORPUSCULAR HEMOGLOBIN 34.1 PG (27.0-34.0); MEAN CORPUSCULAR HGB CONC 33.1 % (32.0-36.0); MONO % 12.2 % (0.0-8.0); PLATELET COUNT 308 TH/MM3 (150-450); RED CELL DISTRIBUTION WIDTH 13.3 % (11.6-17.2); WHITE BLOOD COUNT 14.9 TH/MM3 (4.0-11.0)
[2017-05-12 06:58] LABS: ALKALINE PHOSPHATASE 86 U/L (45-117); ALT (GPT) 22 U/L (10-53); ANION GAP 7 MEQ/L (5-15); AST (GOT) 26 U/L (15-37); BICARBONATE 27.1 MEQ/L (21.0-32.0); BLOOD UREA NITROGEN 8 MG/DL (7-18); CHLORIDE 109 MEQ/L (98-107); GLOMERULAR FILTRATION RATE 103 ML/MIN (>89); POTASSIUM 4.7 MEQ/L (3.5-5.1); SODIUM (NA) 143 MEQ/L (136-145); TOTAL BILIRUBIN ADULT 0.3 MG/DL (0.2-1.0)
[2017-05-12] MEDS: MUPIROCIN 2% OINT 1 APPLIC/GM SYR NASAL SCH ×2 (08:15→20:20)
[2017-05-12] MEDS: PANTOPRAZOLE SODIUM 40 MG VIAL IV SCH (08:15)
[2017-05-12] MEDS: CHLORHEXIDINE 0.12% (ORAL KIT) 15 ML CUP MT SCH ×2 (08:15→20:20)
--- NOTE | 2017-05-12 08:20 | HHI.CCPN ---
Subjective Remarks/Hospital Course Patient is a 71-year-old female with known past medical history of left breast cancer, tobacco abuse. Unfortunately no further history can be obtained as the patient is intubated and there is no family available. According to the ER history, patient was brought in by EMS after neighbors found her down on the floor, unresponsive. She was found with shallow respirations hypopneic and was intubated for airway protection. She was last seen normal about 1-1/2 days ago. In the ER patient remained unresponsive. CT of the head was unremarkable. Abnormal labs included a white count of 15.9 with 88% neutrophils , sodium 129 potassium 6.5, BUN 24 and creatinine of 1.35. CPK was elevated at 528. Patient received IV fluid boluses. Patient's elevated white count and altered mentation was suspicious for sepsis. I have ordered CT chest abdomen pelvis which showed mild chest infiltrates, and evidence of common bile duct obstruction (bilateral dilated biliary tree, main pancreatic duct, and gallbladder dilation). I have started patient on Zosyn 3.375 g every 6 hours, and single dose of vancomycin. Gastroenterology had been consulted. Initial K was 6.5 but this was hemolyzed. Repeat CMP is pending. I evaluated patient in ED. patient is clinically dehydrated and remains encephalopathy. Additional fluid boluses ordered and start antibiotics STAT, if not given in ED. Gastroenterology had been consulted for possible common bile duct obstruction SUBJ: 05/12: Patient remains intubated heavily sedated. ERCP planned for today. White count trending down. Daughter gave me history yesterday of possible prescription drug abuse and I believe this might have contributed to the altered mentation. Will attempt weaning trials after ERCP Objective Vital Signs Date Time Temp Pulse Resp B/P Pulse Ox O2 Delivery O2 Flow Rate FiO2 05/12/17 07:37 100 40 05/12/17 06:00 87 17 142/67 05/12/17 04:00 98.7 05/11/17 07:36 Ventilator Intake and Output 05/11/17 05/11/17 05/12/17 08:00 16:00 00:00 Intake Total 315 ml 3020 ml Output Total 550 ml 1450 ml Balance -235 ml 1570 ml Result Diagram: 05/12/17 0526 05/12/17 0526 Other Results Microbiology Date/Time Procedure Status Source Growth 05/11/17 16:00 Legionella Antigen - Final Complete Urine Catheterized Urine PRESUMPTIVE NEGATIVE FOR LEGIONELLA P... 05/11/17 16:00 Streptococcus pneumoniae Antigen (M - Final Complete Urine Catheterized Urine PRESUMPTIVE NEGATIVE FOR STREPTOCOCCU... Laboratory Tests Test 05/11/17 09:04 Blood Gas Puncture Site RT FEMORAL Blood Gas Patient Temperature 98.6 Blood Gas HCO3 27 mmol/L (22-26) Blood Gas Base Excess 3.1 mmol/L (-2-2) Blood Gas Oxygen Saturation 98 % (90-100) Arterial Blood pH 7.44 (7.380-7.420) Arterial Blood Partial 40 mmHg (38-42) Pressure CO2 Arterial Blood Partial 307 mmHG Pressure O2 (61-120) Arterial Blood Oxygen Content 19.0 Vol % (12.0-20.0) Arterial Blood 0.3 % (0-4) Carboxyhemoglobin Arterial Blood Methemoglobin 0.5 % (0-2) Blood Gas Hemoglobin 13.4 G/DL (12.0-16.0) Oxygen Delivery Device VENTILATOR Blood Gas Ventilator Setting AC/350/16/+5 Blood Gas Inspired Oxygen 100 % Imaging CT chest: Bilateral infiltrates CT abdomen: Dilated biliary tree, gallbladder and main pancreatic duct indicating distal CBD obstruction Objective Remarks GENERAL: Thin disheveled elderly white female patient who is intubated, sedated with propofol SKIN: Warm/dry. HEAD: Atraumatic. Normocephalic. EYES: Pupils equal and round. No injection or drainage. ENT: No nasal bleeding or discharge. Orotracheally intubated NECK: Trachea midline. No JVD. CARDIOVASCULAR: Regular rate and rhythm. No murmur appreciated. RESPIRATORY: No accessory muscle use. Clear to auscultation. Breath sounds equal bilaterally. GASTROINTESTINAL: Abdomen soft, non-tender, nondistended. Hepatic and splenic margins not palpable. MUSCULOSKELETAL: No obvious deformities. No clubbing. No cyanosis. No edema. NEUROLOGICAL: Intubated, sedated with propofol. No spontaneous eye opening on propofol. Moves all extremities purposefully when sedation is held Urinary Catheter: Yes Assessment to: Continue A/P Assessment and Plan Assessment and Plan NEURO/PSYCH: Acute toxic metabolic encephalopathy Probable benzodiazepine overdose Probable prescription drug abuse - Altered mentation most likely from benzodiazepine overdose, less likely sepsis. Ct head negative for acute findings - Propofol for sedation and ventilator synchrony if needed. Daily sedation vacation - Mentation appears to be improving - B12, TSH Ammonia normal RESP: Acute respiratory failure Bilateral pneumonia/aspiration Tobacco abuse, possible COPD - Continue with vent support and keep sat >90% - Ventilator bundle. DuoNeb scheduled and when necessary - SBT with possible extubation today after ERCP - CT chest shows mild bilateral infiltrates pneumonia versus aspiration-on broad -spectrum antibiotics CV: - Monitor HR and BP keep MAP>65mmHg GI: Probable distal biliary obstruction - CT abdomen pelvis shows dilated biliary tree, dilated main pancreatic duct, and dilated gallbladder suggestive of distal gallbladder obstruction - Gastroenterology consulted ERCP today - IV pantoprazole, bowel regimen - Keep nothing by mouth : Acute kidney injury- secondary to dehydration Rhabdomyolysis Hypokalemia - Monitor renal function , I/O's, electrolytes replacement per protocol. - NS boluses x3 and IVF ant 150 ml pr hour - Electrolyte replacement per protocol ID: Severe sepsis Bilateral pulmonary infiltrates present on admissions indicate the hospital aspiration versus pneumonia Probable common biliary duct obstruction - Currently on Zosyn and Levaquin. Received one dose of vancomycin. - Follow-up on sputum blood cultures. Urine for Legionella and pneumococcal antigen neg HEME: - Monitor CBC, CMP, coags ENDO: - Electrolyte replacement protocol PROPH: Bilateral lower extremity SCDs. SQ Lovenox, Protonix LINES: peripheral IVs Level 3 Patient is remains critically ill with sepsis and metabolic encephalopathy, but stable. Continue aggressive fluid resuscitation and broad-spectrum antibiotics. ERCP today Levar Gil MD May 12, 2017 08:20
[2017-05-12] MEDS: ENOXAPARIN SODIUM 30 MG/0.3 ML SYRINGE SQ SCH (11:00)
[2017-05-12] MEDS: PROPOFOL 1000 MG/100 ML INJ 100 ML IV SCH ×2 (13:09→20:20)
--- NOTE | 2017-05-12 17:51 | PD.PROCEDR ---
GI Procedure REFERRING PHYSICIAN Dr. Gil PROCEDURE PERFORMED ERCP followed by an EGD INDICATION FOR PROCEDURE Dilated biliary system PROCEDURE: The procedure, risks and benefits were discussed with Ms. Stoner and informed consent was obtained. Anesthesia sedated her with Diprivan. She was placed in the left lateral decubitus position. EGD: The Pentax videoscope was introduced through the oropharynx and advanced to the second portion of the duodenum under direct visualization. Retroflexion was performed in the stomach. FINDINGS: I was unable to find the ampulla with the ERCP scope and so an EGD was done to evaluate the anatomy properly The esophagus appeared to be unremarkable with normal limits The stomach there was a partial gastrectomy with what looks like a BII hookup the gastric mucosa appears to be somewhat erythemic consistent with gastritis but no ulcers or erosions the anastomosis appeared to be wide open And both the efferent and afferent loops were both unremarkable and within normal limits ERCP: Patient was placed in a prone position. The Pentax videoscope was introduced through the oropharynx and advanced to the small bowel but due to the surgical changes was unable to find the ampulla ESTIMATED BLOOD LOSS: None SPECIMENS REMOVED: None COMPLICATIONS: None IMPRESSION: Biliary system dilation etiology unclear Gastritis Surgical changes consistent with a BII or gastric bypass PLAN: We'll proceed with an MRCP Continue supportive care Leandro Hitchcock MD May 12, 2017 17:51
--- NOTE | 2017-05-12 18:08 | EKG ---
Date Performed: 05/11/2017 Time Performed: 07:40:04 PTAGE: 71 years EKG: Sinus rhythm WITH SINUS ARRHYTHMIA LEFT ANTERIOR FASCICULAR BLOCK ST ELEVATION CONSISTENT WITH INJURY, PERICARDIT IS, OR EARLY REPOLARIZATION Compared to previous tracing, voltage has increased signficantly. ST calderón ges are new Clinical correlation is recommended ABNORMAL ECG PREVIOUS TRACING : 11/26/2008 09.36 DOCTOR: Donn Henry Interpretating Date/Time 05/12/2017 18:07:26
[2017-05-13] VITALS (35 sets, daily range): BP systolic 115–176; BP diastolic 60–94; PULSE 79–119; RESP 18–37; TEMP 97.8–100.3; O2SAT 96–98
[2017-05-13] MEDS: CHLORHEXIDINE GLUCONATE 2 % 1 PACK (2 CLOTHS) TOP SCH (04:00)
[2017-05-13] MEDS: RESP: ALBUTEROL 2.5 MG/IPRATROPIUM 0.5 MG NEB (SCH) NEB ×4 (04:32→20:49)
[2017-05-13] MEDS: PROPOFOL 1000 MG/100 ML INJ 100 ML IV SCH ×3 (04:53→23:39)
[2017-05-13] MEDS: PIPERACIL-TAZO 3.375 GM PREMIX 50 ML IV SCH ×4 (05:17→21:49)
[2017-05-13] MEDS: SODIUM CHLOR 0.9% 1000 ML INJ 1,000 ML IV SCH ×3 (05:17→21:50)
[2017-05-13 06:10] LABS: HEMATOCRIT 34.7 % (35.0-46.0); MEAN CELL VOLUME 101.3 FL (80.0-100.0); MEAN CORPUSCULAR HEMOGLOBIN 34.2 PG (27.0-34.0); MEAN CORPUSCULAR HGB CONC 33.7 % (32.0-36.0); PLATELET COUNT 260 TH/MM3 (150-450); RED BLOOD COUNT 3.42 MIL/MM3 (4.00-5.30); RED CELL DISTRIBUTION WIDTH 13.6 % (11.6-17.2); REVIEW FLAG FINAL; WHITE BLOOD COUNT 16.7 TH/MM3 (4.0-11.0)
[2017-05-13 06:39] LABS: ALKALINE PHOSPHATASE 83 U/L (45-117); ALT (GPT) 19 U/L (10-53); ANION GAP 12 MEQ/L (5-15); AST (GOT) 26 U/L (15-37); BLOOD UREA NITROGEN 4 MG/DL (7-18); CHLORIDE 105 MEQ/L (98-107); GLOMERULAR FILTRATION RATE 158 ML/MIN (>89); POTASSIUM 3.4 MEQ/L (3.5-5.1); SODIUM (NA) 140 MEQ/L (136-145); TOTAL BILIRUBIN ADULT 0.4 MG/DL (0.2-1.0)
[2017-05-13] MEDS: MUPIROCIN 2% OINT 1 APPLIC/GM SYR NASAL SCH ×2 (07:55→19:35)
[2017-05-13] MEDS: PANTOPRAZOLE SODIUM 40 MG VIAL IV SCH (07:55)
[2017-05-13] MEDS: CHLORHEXIDINE 0.12% (ORAL KIT) 15 ML CUP MT SCH ×2 (07:56→19:35)
[2017-05-13] MEDS: POTASSIUM CHLOR 20 MEQ PREMIX 100 ML IV PRN (08:01)
--- NOTE | 2017-05-13 10:42 | HHI.GIFU ---
Subjective Remarks Sedated on vent. No acute distress noted. (Megan Peres) Objective Vitals I&O Vital Signs Date Time Temp Pulse Resp B/P Pulse Ox O2 Delivery O2 Flow Rate FiO2 05/13/17 09:50 97 40 05/13/17 09:19 40 05/13/17 09:19 97 40 05/13/17 08:20 98 40 05/13/17 06:00 88 05/13/17 04:32 98 40 05/13/17 04:00 40 05/13/17 04:00 83 05/13/17 04:00 99.4 83 18 147/67 97 05/13/17 02:45 16 05/13/17 02:00 80 05/13/17 00:10 97 40 05/13/17 00:00 88 05/13/17 00:00 99.8 88 21 156/70 98 05/13/17 00:00 40 05/12/17 22:00 89 05/12/17 21:17 100 40 05/12/17 20:00 40 05/12/17 20:00 87 05/12/17 20:00 99.3 87 20 168/79 100 05/12/17 17:15 94 167/78 99 05/12/17 17:12 97 171/80 99 05/12/17 17:09 94 204/93 99 05/12/17 17:06 100 189/82 99 05/12/17 17:05 102 201/91 98 05/12/17 17:00 96 146/75 99 05/12/17 16:55 95 157/76 05/12/17 16:50 90 152/74 100 05/12/17 16:45 85 146/70 100 05/12/17 16:40 85 144/67 100 05/12/17 16:35 98 168/78 99 05/12/17 16:34 100 144/69 99 05/12/17 16:30 97 26 151/74 100 05/12/17 16:26 95 38 154/72 100 05/12/17 16:14 99 40 05/12/17 16:00 98.4 79 16 137/65 99 05/12/17 16:00 40 05/12/17 15:30 94 30 160/72 100 05/12/17 15:00 97 32 160/77 99 05/12/17 14:30 71 16 137/65 100 05/12/17 14:00 85 16 142/68 100 05/12/17 13:00 82 16 134/63 100 05/12/17 12:37 100 40 05/12/17 12:30 79 16 139/64 100 05/12/17 12:00 40 05/12/17 12:00 98.6 79 16 146/67 100 05/12/17 11:30 93 18 144/66 100 05/12/17 11:00 93 19 150/69 100 05/12/17 10:30 86 20 148/66 100 I/O 05/12/17 05/12/17 05/12/17 05/13/17 05/13/17 05/13/17 07:00 15:00 23:00 07:00 15:00 23:00 Intake Total 1611 ml 1125 ml 1210 ml 1210 ml Output Total 1450 ml 700 ml 900 ml 700 ml Balance 161 ml 425 ml 310 ml 510 ml Intake IV Total 1611 ml 1125 ml 1210 ml 1210 ml Output Urine Total 1450 ml 700 ml 900 ml 700 ml # Bowel Movements 0 2 1 Laboratory Laboratory Tests Test 05/13/17 05:06 White Blood Count 16.7 Red Blood Count 3.42 Hemoglobin 11.7 Hematocrit 34.7 Mean Corpuscular Volume 101.3 Mean Corpuscular Hemoglobin 34.2 Mean Corpuscular Hemoglobin 33.7 Concent Red Cell Distribution Width 13.6 Platelet Count 260 Mean Platelet Volume 8.2 Sodium Level 140 Potassium Level 3.4 Chloride Level 105 Carbon Dioxide Level 23.0 Anion Gap 12 Blood Urea Nitrogen 4 Creatinine 0.40 Estimat Glomerular Filtration 158 Rate Random Glucose 66 Calcium Level 8.1 Total Bilirubin 0.4 Aspartate Amino Transf 26 (AST/SGOT) Alanine Aminotransferase 19 (ALT/SGPT) Alkaline Phosphatase 83 Total Protein 5.9 Albumin 2.4 Date/Time Procedure Status Source Growth 05/13/17 06:35 Gram Stain - Final Resulted Sputum Endotracheal 05/13/17 06:35 Sputum Culture Resulted Sputum Endotracheal Pending 05/11/17 16:00 Legionella Antigen - Final Complete Urine Catheterized Urine PRESUMPTIVE NEGATIVE FOR LEGIONELLA P... 05/11/17 16:00 Streptococcus pneumoniae Antigen (M - Final Complete Urine Catheterized Urine PRESUMPTIVE NEGATIVE FOR STREPTOCOCCU... 05/11/17 07:30 Aerobic Blood Culture - Preliminary Resulted Blood Peripheral NO GROWTH IN 1 DAY 05/11/17 07:30 Anaerobic Blood Culture - Preliminary Resulted Blood Peripheral NO GROWTH IN 1 DAY Imaging Last Impressions Chest X-Ray 05/12/17 0600 Signed Impressions: Service Date/Time: Friday, May 12, 2017 03:56 - CONCLUSION: Clear lungs. NG tube with tip in stomach. Molina Henry MD Chest CT 05/11/17 0936 Signed Impressions: Service Date/Time: Thursday, May 11, 2017 11:35 - CONCLUSION: 1. Small bilateral noncalcified pulmonary nodules ranging in size up to 7.6 mm. 2. Left lower lobe, right middle lobe and lingular airspace disease 3. No evidence of malignant lymphadenopathy 4. Collapsed bilateral breast implants. 5. Biliary duct dilatation Ihsan Perdomo MD Abdomen/Pelvis CT 05/11/17 0936 Signed Impressions: Service Date/Time: Thursday, May 11, 2017 11:35 - CONCLUSION: 1. Dilated biliary tree and main pancreatic duct with associated distention of the gallbladder characteristic of a distal common bile duct obstructing process. 2. No evidence of a pancreatic mass 3. Post surgical clip is identified in the dequan hepatis which may be related to the patient's obstructive process. 4. Side port of nasogastric tube is in the distal esophagus. Ihsan Perdomo MD Pelvis X-Ray 05/11/17 0756 Signed Impressions: Service Date/Time: Thursday, May 11, 2017 07:58 - CONCLUSION: No definite acute bony injury Jeffery Donaldson MD Head CT 05/11/17 0716 Signed Impressions: Service Date/Time: Thursday, May 11, 2017 08:32 - CONCLUSION: 1. No acute intracranial abnormality is identified. 2. 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 Jeffery Grace MD Physical Exam HEENT: Normocephalic; atraumatic. NECK: Neck is supple, no JVD, no lymphadenopathy. CHEST: Coarse breath sounds. OETT to vent CARDIAC: RRR with no murmur gallop or rubs. ABDOMEN: Soft, nondistended, nontender; no hepatosplenomegaly; bowel sounds are present x 4 EXTREMITIES: No clubbing, cyanosis, or edema. SKIN: Skin dry MAKE UP ARRANGER: Sedated on vent (Megan Peres) Assessment and Plan Plan ASSESSMENT: - Dilated biliary tree and main pancreatic duct with associated distention of the gallbladder characteristic of distal common bile duct obstruction. CT abdomen and pelvis (05/11/17)-----> 1. Dilated biliary tree and main pancreatic duct with associated distention of the gallbladder characteristic of a distal common bile duct obstructing process. 2. No evidence of a pancreatic mass 3. Post surgical clip is identified in the dequan hepatis which may be related to the patient's obstructive process. 4. Side port of nasogastric tube is in the distal esophagus. LFTs T. Bili 0.4, AST 26, ALT 19, ALk PHosph 82. WBC 16.7. NPO. Levaquin, Zosyn, PPI. ERCP followed by EGD attempted on 05/12--unable to find the ampulla with the ERCP scope and so an EGD was done to evaluate the anatomy properly, Impression: Biliary system dilation etiology unclear, gastritis, surgical changes consistent with a BII or gastric bypass - Sepsis, likely multifactorial, CT consistent with biliary obstructive process , also found down with emesis bilateral pneumonia/aspiration. Levaquin, Zosyn, aggressive hydration. - Acute respiratory failure, bilateral pneumonia/aspiraiton. Chest CT (05/11/17) ----> 1. Small bilateral noncalcified pulmonary nodules ranging in size up to 7.6 mm. 2. Left lower lobe, right middle lobe and lingular airspace disease 3. No evidence of malignant lymphadenopathy 4. Collapsed bilateral breast implants. 5. Biliary duct dilatation. Vent per CCM. Levaquin, Zosyn. - Acute encephalopathy, per attending. - VERN with multiple electrolyte abnormalities. Creat 0.40, GFR 158, K+ 3.4, Na+ 140 - Rhabodmyolysis, mild. CPK 528. IVF - COPD, Hx chronic pelvic pain, - Hx Breast cancer, s/p radical mastectomy with breast reconstruction, and chemotherapy - Hx PUD, s/p partial gastrectomy and vagotomy PLAN: - MRCP - NPO - Cont. PPI - Cont. Zosyn/Levaquin - Cont. aggressive hydration - Monitor labs - Supportive care - Further recommendations to follow based on results of above Patient seen and examined by Dr. Hitchcock and myself and this note is written on his behalf. (Megan Peres) Physician Comments Patient seen and examined Agree with above Continue with current supportive care Monitor labs The MRCP showing choledocholithiasis with dilation of the common bile duct We were unable to do the ERCP yesterday due to the surgical history and therefore we will ask IR to proceed with PTC, Lovenox will be held If IR is able to remove the stones great otherwise will plan a rendezvous procedure Case discussed with Dr. Gil (Leandro Hitchcock MD) Megan Peres May 13, 2017 10:42 Leandro Hitchcock MD May 13, 2017 16:14
--- NOTE | 2017-05-13 11:29 | RADRPT ---
EXAM DATE/TIME: 05/13/2017 10:43 [facility] COMPARISON: CT ABDOMEN & PELVIS W CONTRAST, May 11, 2017, 11:35. INDICATIONS : Dilated bile ducts. Sepsis. MEDICAL HISTORY : Carcinoma, breast. Chronic obstructive pulmonary disease. Encephalitis. SURGICAL HISTORY : Mastectomy, left. Partial gastrectomy. ENCOUNTER: Subsequent ACUITY: 2 day PAIN SCORE: 0/10 LOCATION: upper quadrant TECHNIQUE: Multiplanar, multisequence magnetic resonance imaging of the abdomen was performed. High-resolution 3D dataset was utilized to reconstruct maximum-intensity projection (MIP) images. FINDINGS: The study is degraded by motion artifact. INTRAHEPATIC BILE DUCTS: Mild to moderate dilatation of the intrahepatic biliary system is again noted. EXTRAHEPATIC BILE DUCTS: The common bile duct measures up to approximately 8 mm in diameter. There are several small low densi ty filling defects distal common bile duct measuring approximately 2-3 mm in size. These are best see n on series 3 image #10. GALLBLADDER: The gallbladder again appears mildly distended with no wall thickening or inflammatory change. There is no evidence of cholelithiasis. LIVER: Normal size and signal intensity. No concerning liver lesion is identified on this non-contrast exam. PANCREAS: The main pancreatic duct is normal in size. There is no significant anatomical variant. Signal inte nsity is within normal limits. No mass is visualized on this non-contrast exam. OTHER: The remaining visualized structures demonstrate no acute abnormality on this non-contrast exam. CONCLUSION: 1. Intra-and extrahepatic biliary ductal dilatation again noted with several small low signal filling defects in the distal common bile duct of concern for small stones. 2. The gallbladder remains distended in appearance with no definite evidence of scoliotic lithiasis o r inflammatory change. Anjum Moon MD on May 13, 2017 at 11:21 Board Certified Radiologist. This report was verified electronically.
[2017-05-13] MEDS: ENOXAPARIN SODIUM 30 MG/0.3 ML SYRINGE SQ SCH (11:31)
[2017-05-13] MEDS: LEVOFLOXACIN 750 MG PREMIX INJ 150 ML IV SCH (14:06)
--- NOTE | 2017-05-13 14:06 | HHI.CCPN ---
Subjective Remarks/Hospital Course Patient is a 71-year-old female with known past medical history of left breast cancer, tobacco abuse. Unfortunately no further history can be obtained as the patient is intubated and there is no family available. According to the ER history, patient was brought in by EMS after neighbors found her down on the floor, unresponsive. She was found with shallow respirations hypopneic and was intubated for airway protection. She was last seen normal about 1-1/2 days ago. In the ER patient remained unresponsive. CT of the head was unremarkable. Abnormal labs included a white count of 15.9 with 88% neutrophils , sodium 129 potassium 6.5, BUN 24 and creatinine of 1.35. CPK was elevated at 528. Patient received IV fluid boluses. Patient's elevated white count and altered mentation was suspicious for sepsis. I have ordered CT chest abdomen pelvis which showed mild chest infiltrates, and evidence of common bile duct obstruction (bilateral dilated biliary tree, main pancreatic duct, and gallbladder dilation). I have started patient on Zosyn 3.375 g every 6 hours, and single dose of vancomycin. Gastroenterology had been consulted. Initial K was 6.5 but this was hemolyzed. Repeat CMP is pending. I evaluated patient in ED. patient is clinically dehydrated and remains encephalopathy. Additional fluid boluses ordered and start antibiotics STAT, if not given in ED. Gastroenterology had been consulted for possible common bile duct obstruction SUBJ: 05/12: Patient remains intubated heavily sedated. ERCP planned for today. White count trending down. Daughter gave me history yesterday of possible prescription drug abuse and I believe this might have contributed to the altered mentation. Will attempt weaning trials after ERCP 05/13: Remains intubated encephalopathic. ERCP could not be performed due to anatomical changes from gastric surgery-unable to find ampulla. MRCP showed intra-and extrahepatic biliary dilatation and possible distal CBD stones. Discussed with Dr. Hitchcock. Plan for PTC by IR followed by possible rendezvous ERCP. mental status is slightly improved and airway protection would be an issue if extubated Objective Vital Signs Date Time Temp Pulse Resp B/P Pulse Ox O2 Delivery O2 Flow Rate FiO2 05/13/17 11:58 98 40 05/13/17 06:00 88 05/13/17 04:00 99.4 18 147/67 05/11/17 07:36 Ventilator Intake and Output 05/12/17 05/12/17 05/13/17 08:00 16:00 00:00 Intake Total 1611 ml 1125 ml 1210 ml Output Total 1450 ml 700 ml 900 ml Balance 161 ml 425 ml 310 ml Result Diagram: 05/13/17 0506 05/13/17 0506 Other Results Microbiology Date/Time Procedure Status Source Growth 05/11/17 16:00 Legionella Antigen - Final Complete Urine Catheterized Urine PRESUMPTIVE NEGATIVE FOR LEGIONELLA P... 05/11/17 16:00 Streptococcus pneumoniae Antigen (M - Final Complete Urine Catheterized Urine PRESUMPTIVE NEGATIVE FOR STREPTOCOCCU... Imaging CT chest: Bilateral infiltrates CT abdomen: Dilated biliary tree, gallbladder and main pancreatic duct indicating distal CBD obstruction Objective Remarks GENERAL: Thin disheveled elderly white female patient who is intubated, sedated SKIN: Warm/dry. HEAD: Atraumatic. Normocephalic. EYES: Pupils equal and round. No injection or drainage. ENT: No nasal bleeding or discharge. Orotracheally intubated NECK: Trachea midline. No JVD. CARDIOVASCULAR: Tachycardic rate and rhythm. No murmur appreciated. RESPIRATORY: No accessory muscle use. Clear to auscultation. Breath sounds equal bilaterally. GASTROINTESTINAL: Abdomen soft, non-tender, nondistended. Hepatic and splenic margins not palpable. MUSCULOSKELETAL: No obvious deformities. No clubbing. No cyanosis. No edema. NEUROLOGICAL: Intubated, off sedation. No spontaneous eye opening. Moves all extremities purposefully, follows commands very weakly A/P Assessment and Plan Assessment and Plan NEURO/PSYCH: Acute toxic metabolic encephalopathy Probable benzodiazepine overdose Probable prescription drug abuse - Altered mentation most likely from benzodiazepine overdose, less likely sepsis. Ct head negative for acute findings - Propofol for sedation and ventilator synchrony if needed. Daily sedation vacation - Mentation appears to be improving, but doubt patient is ready for extubation - B12, TSH Ammonia normal RESP: Acute respiratory failure Bilateral pneumonia/aspiration Tobacco abuse, possible COPD - Continue with vent support and keep sat >90% - Ventilator bundle. DuoNeb scheduled and when necessary - SBT daily-mental status won't permit extubation - CT chest shows mild bilateral infiltrates pneumonia versus aspiration-on broad -spectrum antibiotics CV: - Monitor HR and BP keep MAP>65mmHg GI: MRCP shows probable distal CBD stones - CT abdomen pelvis shows dilated biliary tree, dilated main pancreatic duct, and dilated gallbladder suggestive of distal gallbladder obstruction - Gastroenterology unable to complete ERCP, remains to find ampulla due to surgical changes - Plan for PTC by IR and possible Rendezvous ERCP. D/W Dr Hitchcock - IV pantoprazole, bowel regimen - Keep nothing by mouth : Acute kidney injury- secondary to dehydration Rhabdomyolysis Hypokalemia - Monitor renal function , I/O's, electrolytes replacement per protocol. - NS boluses x3 and IVF at 150 ml pr hour, cahnge to KVO - Electrolyte replacement per protocol ID: Severe sepsis Bilateral pulmonary infiltrates present on admissions indicate the hospital aspiration versus pneumonia Probable common biliary duct obstruction - Currently on Zosyn and Levaquin. Received one dose of vancomycin. Continue vanc also until final cultures available - Follow-up on sputum blood cultures. Urine for Legionella and pneumococcal antigen neg HEME: - Monitor CBC, CMP, coags ENDO: - Electrolyte replacement protocol PROPH: Bilateral lower extremity SCDs. SQ Lovenox, Protonix LINES: peripheral IVs Level 3 Patient is remains critically ill with sepsis and metabolic encephalopathy, but stable. Continue broad-spectrum antibiotics. MRCP finding reviewed with Levar Paula MD May 13, 2017 14:06
[2017-05-13] MEDS: ACETAMINOPHEN 325 MG TAB PO PRN (17:02)
[2017-05-14] VITALS (20 sets, daily range): BP systolic 125–151; BP diastolic 58–71; PULSE 79–138; RESP 14–25; TEMP 98.1–99.5; O2SAT 90–100
--- NOTE | 2017-05-14 03:06 | RADRPT ---
EXAM DATE/TIME: 05/14/2017 02:21 [facility] COMPARISON: CHEST SINGLE AP, May 12, 2017, 3:56. INDICATIONS : Shortness of breath, possible pulmonary disease. MEDICAL HISTORY : Carcinoma, breast. SURGICAL HISTORY : Mastectomy, left. Tubal ligation. Gastric resection with vagotomy ENCOUNTER: Subsequent ACUITY: 1 week PAIN SCORE: Non-responsive. LOCATION: Bilateral chest FINDINGS: Endotracheal tube tip well above the savana. Gastric tube tip and side-port project within the stoma ch. Interval development of consolidation in left lower lung with loss of delineation of the left he midiaphragm. Some minimal patchy infiltrates in the right lower lung without consolidation. The hea rt is normal size. Vertebroplasty cement in an upper lumbar vertebral body. CONCLUSION: Interval development of segmental consolidation left lower lung. Bobby Hilton MD on May 14, 2017 at 3:04 Board Certified Radiologist. This report was verified electronically.
[2017-05-14] MEDS: CHLORHEXIDINE GLUCONATE 2 % 1 PACK (2 CLOTHS) TOP SCH (03:11)
[2017-05-14] MEDS: RESP: ALBUTEROL 2.5 MG/IPRATROPIUM 0.5 MG NEB (SCH) NEB ×4 (03:44→21:13)
[2017-05-14] MEDS: SODIUM CHLOR 0.9% 1000 ML INJ 1,000 ML IV SCH (04:47)
[2017-05-14] MEDS: PIPERACIL-TAZO 3.375 GM PREMIX 50 ML IV SCH ×4 (04:47→22:08)
[2017-05-14] MEDS: PROPOFOL 1000 MG/100 ML INJ 100 ML IV SCH (04:52)
[2017-05-14 07:06] LABS: AUTOMATED NEUTROPHIL # 13.1 TH/MM3 (1.8-7.7); BASOPHIL # 0.1 TH/MM3 (0-0.2); BASOPHIL % 0.3 % (0.0-2.0); EOSINOPHIL % 0.1 % (0.0-4.0); HEMATOCRIT 33.6 % (35.0-46.0); HEMO FLAGS DIFF FINAL; LYMPH % 7.3 % (9.0-44.0); LYMPHOCYTE # 1.1 TH/MM3 (1.0-4.8); MEAN CELL VOLUME 100.7 FL (80.0-100.0); MEAN CORPUSCULAR HGB CONC 33.7 % (32.0-36.0); MONO % 8.5 % (0.0-8.0); NEUT % 83.8 % (16.0-70.0); PLATELET COUNT 248 TH/MM3 (150-450); RED BLOOD COUNT 3.34 MIL/MM3 (4.00-5.30); RED CELL DISTRIBUTION WIDTH 13.4 % (11.6-17.2); WHITE BLOOD COUNT 15.6 TH/MM3 (4.0-11.0)
[2017-05-14 07:12] LABS: ANION GAP 11 MEQ/L (5-15); AST (GOT) 26 U/L (15-37); BICARBONATE 22.8 MEQ/L (21.0-32.0); BLOOD UREA NITROGEN 3 MG/DL (7-18); CHLORIDE 105 MEQ/L (98-107); GLOMERULAR FILTRATION RATE 173 ML/MIN (>89); MAGNESIUM 1.9 MG/DL (1.5-2.5); POTASSIUM 3.3 MEQ/L (3.5-5.1); SODIUM (NA) 139 MEQ/L (136-145)
[2017-05-14 07:13] LABS: ALT (GPT) 15 U/L (10-53)
[2017-05-14 07:16] LABS: ALKALINE PHOSPHATASE 86 U/L (45-117); TOTAL BILIRUBIN ADULT 0.5 MG/DL (0.2-1.0)
[2017-05-14] MEDS: CHLORHEXIDINE 0.12% (ORAL KIT) 15 ML CUP MT SCH ×2 (08:00→20:00)
[2017-05-14] MEDS: PANTOPRAZOLE SODIUM 40 MG VIAL IV SCH (09:00)
--- NOTE | 2017-05-14 11:14 | PD.RAD ---
Post Procedure Progress Note Pre Procedure Diagnosis: (1) Probable CBD obstruction Post Procedure Diagnosis: (1) Probable CBD obstruction Procedure Date: May 14, 2017 Supervising Radiologist: Job Willis Estimated blood loss: None Anesthesia: Local, Conscious Sedation Plan of Activity Patient to Unit: Critical Care Patient Condition: Poor Additional Comments: PTHD attempted. The patient's intrahepatic ducts are non dilated. Multiple punctures into the liver made with a 21ga needle. No biliary duct was cannulated. Procedure was unsuccessful. case discussed with Dr. Calhoun See PACS Report for procedural detail/treatment Job Willis MD May 14, 2017 11:14
[2017-05-14] MEDS ORDERED: IOHEXOL 350 MG/ML 100 ML BTL (for RAD DIAG) OTHER ONE (11:34)
--- NOTE | 2017-05-14 11:38 | RADRPT ---
EXAM DATE/TIME: 05/14/2017 09:41 [facility] COMPARISON : No previous studies available for comparison. INDICATIONS : Patient with common bile duct stones in need of biliary stent placement. HISTORY OF PRESENT ILLNESS: The patient is a 71-year-old who is post gastric bypass. MRCP demonstrates small stones within the co mmon bile duct. ERCP was attempted. As expected, the ampulla could not be reached. We were requested to perform percutaneous biliary drainage. Consent was obtained from the patient's daughter. The patie nt is presently intubated and in the ICU. PAST MEDICAL HISTORY : 1. Encepalopathy 2. Sepsis 3. CBD obstruction 4. Left breast cancer 5. Tabacco abuse PAST SURGICAL HISTORY : 1. Gastric resection 2. Left mastectomy 3. Tubal ligation ALLERGIES: 1. ASA MEDICATIONS: 1. Fentanyl 100 IV 2. Omnipaque 350 70cc IMAGING STUDIES: The patient MRCP was reviewed. There are small stones in the common bile duct. There is no intrahepat ic biliary ductal dilation. ASSESSMENT: Multiple attempts were made to perform a PTHD. No intrahepatic duct could be identified despite multi ple punctures. The procedure was terminated. The case was discussed with Dr. Doshi TIME SPENT: 22.9 minutes fluoroscopy Job Willis MD on May 14, 2017 at 11:33 Board Certified Radiologist. This report was verified electronically.
[2017-05-14] MEDS ORDERED: FUROSEMIDE 40 MG/4 ML VIAL IV PUSH ONE (12:15)
[2017-05-14] MEDS ORDERED: POTASSIUM CHLORIDE 25 MEQ EFFERVESCENT TAB PO ONE (12:15)
--- NOTE | 2017-05-14 12:16 | HHI.GIFU ---
Subjective Remarks Intubated sedated Objective Vitals I&O Vital Signs Date Time Temp Pulse Resp B/P Pulse Ox O2 Delivery O2 Flow Rate FiO2 05/14/17 11:51 97 40 05/14/17 08:21 98 40 05/14/17 08:21 40 05/14/17 08:00 80 05/14/17 08:00 40 05/14/17 06:00 79 05/14/17 04:11 18 05/14/17 04:00 99.5 84 25 147/71 100 05/14/17 04:00 84 05/14/17 04:00 40 05/14/17 03:44 100 40 05/14/17 02:00 85 05/14/17 00:13 98 40 05/14/17 00:00 99.2 84 17 125/60 97 05/14/17 00:00 84 05/14/17 00:00 40 05/13/17 22:00 85 05/13/17 20:49 98 40 05/13/17 20:00 79 05/13/17 20:00 99.7 79 18 115/63 98 05/13/17 20:00 40 05/13/17 19:00 83 19 122/60 98 05/13/17 18:30 88 24 146/68 98 05/13/17 18:00 91 20 128/63 97 05/13/17 17:30 96 20 144/67 96 05/13/17 17:00 102 24 162/78 97 05/13/17 16:30 103 23 150/70 96 05/13/17 16:00 40 05/13/17 16:00 100.3 111 32 167/75 97 05/13/17 15:52 98 40 05/13/17 15:30 115 29 174/90 97 05/13/17 15:10 98 40 05/13/17 15:00 119 33 176/94 96 05/13/17 14:33 107 36 152/73 96 05/13/17 14:00 116 31 97 05/13/17 13:00 111 37 98 I/O 05/13/17 05/13/17 05/13/17 05/14/17 05/14/17 05/14/17 07:00 15:00 23:00 07:00 15:00 23:00 Intake Total 1210 ml 1195 ml 1198 ml 1057 ml Output Total 700 ml 925 ml 1000 ml 500 ml Balance 510 ml 270 ml 198 ml 557 ml IV Total 1210 ml 1195 ml 1198 ml 1057 ml Output Urine Total 700 ml 925 ml 1000 ml 500 ml # Bowel Movements 1 Laboratory Laboratory Tests Test 05/14/17 06:07 White Blood Count 15.6 Red Blood Count 3.34 Hemoglobin 11.3 Hematocrit 33.6 Mean Corpuscular Volume 100.7 Mean Corpuscular Hemoglobin 34.0 Mean Corpuscular Hemoglobin 33.7 Concent Red Cell Distribution Width 13.4 Platelet Count 248 Mean Platelet Volume 8.1 Neutrophils (%) (Auto) 83.8 Lymphocytes (%) (Auto) 7.3 Monocytes (%) (Auto) 8.5 Eosinophils (%) (Auto) 0.1 Basophils (%) (Auto) 0.3 Neutrophils # (Auto) 13.1 Lymphocytes # (Auto) 1.1 Monocytes # (Auto) 1.3 Eosinophils # (Auto) 0.0 Basophils # (Auto) 0.1 CBC Comment DIFF FINAL Differential Comment Sodium Level 139 Potassium Level 3.3 Chloride Level 105 Carbon Dioxide Level 22.8 Anion Gap 11 Blood Urea Nitrogen 3 Creatinine 0.37 Estimat Glomerular Filtration 173 Rate Random Glucose 86 Calcium Level 8.1 Magnesium Level 1.9 Total Bilirubin 0.5 Aspartate Amino Transf 26 (AST/SGOT) Alanine Aminotransferase 15 (ALT/SGPT) Alkaline Phosphatase 86 Total Protein 5.6 Albumin 2.1 Date/Time Procedure Status Source Growth 05/13/17 06:35 Gram Stain - Final Resulted Sputum Endotracheal 05/13/17 06:35 Sputum Culture Resulted Sputum Endotracheal Pending 05/11/17 16:00 Legionella Antigen - Final Complete Urine Catheterized Urine PRESUMPTIVE NEGATIVE FOR LEGIONELLA P... 05/11/17 16:00 Streptococcus pneumoniae Antigen (M - Final Complete Urine Catheterized Urine PRESUMPTIVE NEGATIVE FOR STREPTOCOCCU... 05/11/17 07:30 Aerobic Blood Culture - Preliminary Resulted Blood Peripheral NO GROWTH IN 3 DAYS 05/11/17 07:30 Anaerobic Blood Culture - Preliminary Resulted Blood Peripheral NO GROWTH IN 3 DAYS Imaging Last 48 hours Impressions Chest X-Ray 05/14/17 0600 Signed Impressions: Service Date/Time: Sunday, May 14, 2017 02:21 - CONCLUSION: Interval development of segmental consolidation left lower lung. Bobby Hilton MD Cholangiopancreatography MRI 05/13/17 0000 Signed Impressions: Service Date/Time: Saturday, May 13, 2017 10:43 - CONCLUSION: 1. Intra-and extrahepatic biliary ductal dilatation again noted with several small low signal filling defects in the distal common bile duct of concern for small stones. 2. The gallbladder remains distended in appearance with no definite evidence of scoliotic lithiasis or inflammatory change. Anjum Moon MD Physical Exam HEENT: Normocephalic; atraumatic. NECK: Neck is supple, no JVD, no lymphadenopathy. CHEST: Coarse breath sounds. OETT to vent CARDIAC: RRR with no murmur gallop or rubs. ABDOMEN: Soft, nondistended, nontender; no hepatosplenomegaly; bowel sounds are present x 4 EXTREMITIES: No clubbing, cyanosis, or edema. 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 CT abdomen and pelvis (05/11/17)-----> 1. Dilated biliary tree and main pancreatic duct with associated distention of the gallbladder characteristic of a distal common bile duct obstructing process. 2. No evidence of a pancreatic mass 3. Post surgical clip is identified in the dequan hepatis which may be related to the patient's obstructive process. 4. Side port of nasogastric tube is in the distal esophagus. LFTs T. Bili 0.4, AST 26, ALT 19, ALk PHosph 82. WBC 16.7. NPO. Levaquin, Zosyn, PPI. ERCP followed by EGD attempted on 05/12--unable to find the ampulla with the ERCP scope and so an EGD was done to evaluate the anatomy properly, Impression: Biliary system dilation etiology unclear, gastritis, surgical changes consistent with a BII or gastric bypass - Sepsis, likely multifactorial, CT consistent with biliary obstructive process , also found down with emesis bilateral pneumonia/aspiration. Levaquin, Zosyn, aggressive hydration. - Acute respiratory failure, bilateral pneumonia/aspiraiton. Chest CT (05/11/17) ----> 1. Small bilateral noncalcified pulmonary nodules ranging in size up to 7.6 mm. 2. Left lower lobe, right middle lobe and lingular airspace disease 3. No evidence of malignant lymphadenopathy 4. Collapsed bilateral breast implants. 5. Biliary duct dilatation. Vent per CCM. Nicole Rodriguez. - Acute encephalopathy, per attending. - VERN with multiple electrolyte abnormalities. Creat 0.40, GFR 158, K+ 3.4, Na+ 140 - Rhabodmyolysis, mild. CPK 528. IVF - COPD, Hx chronic pelvic pain, - Hx Breast cancer, s/p radical mastectomy with breast reconstruction, and chemotherapy - Hx PUD, s/p partial gastrectomy and vagotomy PLAN: -PTCA unsuccessful ducts not dilated. At this point not much to be done except to wait for symptoms to occur at some point or monitor for ducts to dilate. This can be done on an outpatient basis -Continue present supportive care and monitor labs -Antibiotics and ventilation as per attending physician -Not much to add from a GI perspective at this point in time Leandro Hitchcock MD May 14, 2017 12:15
--- NOTE | 2017-05-14 12:21 | HHI.CCPN ---
Subjective Remarks/Hospital Course Patient is a 71-year-old female with known past medical history of left breast cancer, tobacco abuse. Unfortunately no further history can be obtained as the patient is intubated and there is no family available. According to the ER history, patient was brought in by EMS after neighbors found her down on the floor, unresponsive. She was found with shallow respirations hypopneic and was intubated for airway protection. She was last seen normal about 1-1/2 days ago. In the ER patient remained unresponsive. CT of the head was unremarkable. Abnormal labs included a white count of 15.9 with 88% neutrophils , sodium 129 potassium 6.5, BUN 24 and creatinine of 1.35. CPK was elevated at 528. Patient received IV fluid boluses. Patient's elevated white count and altered mentation was suspicious for sepsis. I have ordered CT chest abdomen pelvis which showed mild chest infiltrates, and evidence of common bile duct obstruction (bilateral dilated biliary tree, main pancreatic duct, and gallbladder dilation). I have started patient on Zosyn 3.375 g every 6 hours, and single dose of vancomycin. Gastroenterology had been consulted. Initial K was 6.5 but this was hemolyzed. Repeat CMP is pending. I evaluated patient in ED. patient is clinically dehydrated and remains encephalopathy. Additional fluid boluses ordered and start antibiotics STAT, if not given in ED. Gastroenterology had been consulted for possible common bile duct obstruction SUBJ: 05/12: Patient remains intubated heavily sedated. ERCP planned for today. White count trending down. Daughter gave me history yesterday of possible prescription drug abuse and I believe this might have contributed to the altered mentation. Will attempt weaning trials after ERCP 05/13: Remains intubated encephalopathic. ERCP could not be performed due to anatomical changes from gastric surgery-unable to find ampulla. MRCP showed intra-and extrahepatic biliary dilatation and possible distal CBD stones. Discussed with Dr. Hitchcock. Plan for PTC by IR followed by possible rendezvous ERCP. mental status is slightly improved and airway protection would be an issue if extubated 05/14: Patient remains lethargic but tolerating CPAP, weakly following commands, PTHC attempted by IR, but unsuccessful. Will proceed with CPAP trial and airway protection questionable. CXR shows LLL consolidation Objective Vital Signs Date Time Temp Pulse Resp B/P Pulse Ox O2 Delivery O2 Flow Rate FiO2 05/14/17 11:51 97 40 05/14/17 08:00 80 05/14/17 04:11 18 05/14/17 04:00 99.5 147/71 05/11/17 07:36 Ventilator Intake and Output 05/13/17 05/13/17 05/14/17 08:00 16:00 00:00 Intake Total 1210 ml 1195 ml 1198 ml Output Total 700 ml 925 ml 1000 ml Balance 510 ml 270 ml 198 ml Result Diagram: 05/14/17 0607 05/14/17 0607 Other Results Microbiology Date/Time Procedure Status Source Growth 05/11/17 16:00 Legionella Antigen - Final Complete Urine Catheterized Urine PRESUMPTIVE NEGATIVE FOR LEGIONELLA P... 05/11/17 16:00 Streptococcus pneumoniae Antigen (M - Final Complete Urine Catheterized Urine PRESUMPTIVE NEGATIVE FOR STREPTOCOCCU... Imaging CT chest: Bilateral infiltrates CT abdomen: Dilated biliary tree, gallbladder and main pancreatic duct indicating distal CBD obstruction Objective Remarks GENERAL: Thin disheveled elderly white female patient who is intubated, sedated SKIN: Warm/dry. HEAD: Atraumatic. Normocephalic. EYES: Pupils equal and round. No injection or drainage. ENT: No nasal bleeding or discharge. Orotracheally intubated NECK: Trachea midline. No JVD. CARDIOVASCULAR: NSR. No murmur appreciated. RESPIRATORY: No accessory muscle use. Clear to auscultation. Breath sounds equal bilaterally. GASTROINTESTINAL: Abdomen soft, non-tender, nondistended. Hepatic and splenic margins not palpable. MUSCULOSKELETAL: No obvious deformities. No clubbing. No cyanosis. No edema. NEUROLOGICAL: Intubated, sedated with propofol. No spontaneous eye opening. Moves all extremities purposefully, follows commands very weakly A/P Assessment and Plan Assessment and Plan NEURO/PSYCH: Acute toxic metabolic encephalopathy Probable benzodiazepine overdose Probable prescription drug abuse - Altered mentation most likely from benzodiazepine overdose,and or sepsis. Ct head negative for acute findings - Propofol for sedation and ventilator synchrony if needed. Daily sedation vacation - Mentation appears to be improving, but airway protection remains questionable - B12, TSH Ammonia normal RESP: Acute respiratory failure Bilateral pneumonia/aspiration Tobacco abuse, possible COPD - Continue with vent support and keep sat >90% - Ventilator bundle. DuoNeb scheduled and when necessary - SBT daily- attempt extubation, airway protection questionable - CT chest shows mild bilateral infiltrates pneumonia versus aspiration - Continue broad-spectrum antibiotics CV: - Monitor HR and BP keep MAP>65mmHg GI: MRCP shows probable distal CBD stones - PTHC unsuccessful, no further procedures planned by GI IR at this time - CT abdomen pelvis shows dilated biliary tree, dilated main pancreatic duct, and dilated gallbladder suggestive of distal gallbladder obstruction - MRCP with probable distal CBD stones - Gastroenterology unable to complete ERCP, remains to find ampulla due to surgical changes - IV pantoprazole, bowel regimen - Keep nothing by mouth : Acute kidney injury- secondary to dehydration Rhabdomyolysis Hypokalemia - Monitor renal function , I/O's, electrolytes replacement per protocol. - s/p NS boluses x3 and IVF at 150 ml pr hour, DC IVF and give Bumex 2 mg IV x1 - Electrolyte replacement per protocol ID: Severe sepsis Bilateral pulmonary infiltrates present on admissions indicate pre hospital aspiration versus pneumonia Probable common biliary duct obstruction - Currently on Zosyn and Levaquin. Received one dose of vancomycin. Continue vanc also until final cultures available - DC Levaquin - Follow-up on sputum blood cultures. Urine for Legionella and pneumococcal antigen neg HEME: - Monitor CBC, CMP, coags ENDO: - Electrolyte replacement protocol PROPH: Bilateral lower extremity SCDs. SQ Lovenox, Protonix LINES: peripheral IVs Level 3 Patient is remains critically ill with sepsis and metabolic encephalopathy, but stable. Levar Gil MD May 14, 2017 12:21
[2017-05-14] MEDS: MUPIROCIN 2% OINT 1 APPLIC/GM SYR NASAL SCH ×2 (12:59→21:00)
[2017-05-14 14:09] LABS: BLOOD GAS BASE EXCESS -3.3 mmol/L (-2-2); BLOOD GAS CARBOXYHEMOGLOBIN 1.4 % (0-4); BLOOD GAS HCO3 21 mmol/L (22-26); BLOOD GAS METHEMOGLOBIN 1.6 % (0-2); BLOOD GAS O2 HGB SATURATION 95 % (90-100); BLOOD GAS OXYGEN CONTENT 17.4 Vol % (12.0-20.0); BLOOD GAS PCO2 38 mmHg (38-42); BLOOD GAS PO2 105 mmHg (61-120); BLOOD GAS TOTAL HGB 12.9 G/DL (12.0-16.0); TEMP CORR TO 98.6
[2017-05-14 14:10] LABS: CRITICAL VALUE NO; DRAW SITE RT RADIAL; FIO2 35 %; NUMBER OF ARTERIAL PUNCTURES 1; OXYGEN DEVICE VENTILATOR; STAT NO; ULNAR PULSE Y; VENT SETTINGS CPAP/PS 5/+5
[2017-05-15] VITALS (16 sets, daily range): BP systolic 112–156; BP diastolic 57–81; PULSE 77–105; RESP 14–17; TEMP 98.3–100.4; O2SAT 97–99
[2017-05-15] MEDS: fentaNYL DRIP 250 ML IV SCH ×2 (03:06→21:04)
[2017-05-15] MEDS: CHLORHEXIDINE GLUCONATE 2 % 1 PACK (2 CLOTHS) TOP SCH (04:00)
[2017-05-15] MEDS: RESP: ALBUTEROL 2.5 MG/IPRATROPIUM 0.5 MG NEB (SCH) NEB ×4 (04:03→23:10)
[2017-05-15] MEDS: PIPERACIL-TAZO 3.375 GM PREMIX 50 ML IV SCH ×4 (05:00→22:56)
[2017-05-15] MEDS: CHLORHEXIDINE 0.12% (ORAL KIT) 15 ML CUP MT SCH ×2 (08:00→20:41)
[2017-05-15] MEDS: MUPIROCIN 2% OINT 1 APPLIC/GM SYR NASAL SCH ×2 (08:27→20:40)
[2017-05-15] MEDS: PANTOPRAZOLE SODIUM 40 MG VIAL IV SCH (08:27)
--- NOTE | 2017-05-15 09:59 | HHI.CCPN ---
Subjective Remarks/Hospital Course Patient is a 71-year-old female with known past medical history of left breast cancer, tobacco abuse. Unfortunately no further history can be obtained as the patient is intubated and there is no family available. According to the ER history, patient was brought in by EMS after neighbors found her down on the floor, unresponsive. She was found with shallow respirations hypopneic and was intubated for airway protection. She was last seen normal about 1-1/2 days ago. In the ER patient remained unresponsive. CT of the head was unremarkable. Abnormal labs included a white count of 15.9 with 88% neutrophils , sodium 129 potassium 6.5, BUN 24 and creatinine of 1.35. CPK was elevated at 528. Patient received IV fluid boluses. Patient's elevated white count and altered mentation was suspicious for sepsis. I have ordered CT chest abdomen pelvis which showed mild chest infiltrates, and evidence of common bile duct obstruction (bilateral dilated biliary tree, main pancreatic duct, and gallbladder dilation). I have started patient on Zosyn 3.375 g every 6 hours, and single dose of vancomycin. Gastroenterology had been consulted. Initial K was 6.5 but this was hemolyzed. Repeat CMP is pending. I evaluated patient in ED. patient is clinically dehydrated and remains encephalopathy. Additional fluid boluses ordered and start antibiotics STAT, if not given in ED. Gastroenterology had been consulted for possible common bile duct obstruction SUBJ: 05/12: Patient remains intubated heavily sedated. ERCP planned for today. White count trending down. Daughter gave me history yesterday of possible prescription drug abuse and I believe this might have contributed to the altered mentation. Will attempt weaning trials after ERCP 05/13: Remains intubated encephalopathic. ERCP could not be performed due to anatomical changes from gastric surgery-unable to find ampulla. MRCP showed intra-and extrahepatic biliary dilatation and possible distal CBD stones. Discussed with Dr. Hitchcock. Plan for PTC by IR followed by possible rendezvous ERCP. mental status is slightly improved and airway protection would be an issue if extubated 05/14: Patient remains lethargic but tolerating CPAP, weakly following commands, PTHC attempted by IR, but unsuccessful. Will proceed with CPAP trial and airway protection questionable. CXR shows LLL consolidation 05/15: Remains intubated sedation held since last 1 hour. Patient is more awake , but appears quite weak. Follows commands weekly 4. Sputum culture growing Serratia and MRSA Objective Vital Signs Date Time Temp Pulse Resp B/P Pulse Ox O2 Delivery O2 Flow Rate FiO2 05/15/17 09:33 40 05/15/17 08:00 100 05/15/17 08:00 99.1 17 131/59 98 05/11/17 07:36 Ventilator Intake and Output 05/14/17 05/14/17 05/15/17 08:00 16:00 00:00 Intake Total 1057 ml 732 ml 380 ml Output Total 500 ml 1400 ml 600 ml Balance 557 ml -668 ml -220 ml Result Diagram: 05/14/17 0607 05/14/17 0607 Other Results Laboratory Tests Test 05/14/17 13:52 Blood Gas Puncture Site RT RADIAL Blood Gas Patient Temperature 98.6 Blood Gas HCO3 21 mmol/L (22-26) Blood Gas Base Excess -3.3 mmol/L (-2-2) Blood Gas Oxygen Saturation 95 % (90-100) Arterial Blood pH 7.37 (7.380-7.420) Arterial Blood Partial 38 mmHg (38-42) Pressure CO2 Arterial Blood Partial 105 mmHg Pressure O2 (61-120) Arterial Blood Oxygen Content 17.4 Vol % (12.0-20.0) Arterial Blood 1.4 % (0-4) Carboxyhemoglobin Arterial Blood Methemoglobin 1.6 % (0-2) Blood Gas Hemoglobin 12.9 G/DL (12.0-16.0) Oxygen Delivery Device VENTILATOR Blood Gas Ventilator Setting CPAP/PS 5/+5 Blood Gas Inspired Oxygen 35 % Imaging CT chest: Bilateral infiltrates CT abdomen: Dilated biliary tree, gallbladder and main pancreatic duct indicating distal CBD obstruction Objective Remarks GENERAL: Thin disheveled elderly white female patient who is intubated, sedated , head is turned to right side SKIN: Warm/dry. HEAD: Atraumatic. Normocephalic. EYES: Pupils equal and round. No injection or drainage. ENT: No nasal bleeding or discharge. Orotracheally intubated NECK: Trachea midline. No JVD. CARDIOVASCULAR: NSR. No murmur appreciated. RESPIRATORY: No accessory muscle use. Clear to auscultation. Breath sounds equal bilaterally. GASTROINTESTINAL: Abdomen soft, non-tender, nondistended. Hepatic and splenic margins not palpable. MUSCULOSKELETAL: No obvious deformities. No clubbing. No cyanosis. No edema. NEUROLOGICAL: Intubated, off sedation +spontaneous eye opening. Moves all extremities purposefully, follows commands very weakly x4 Urinary Catheter: Yes Assessment to: Continue A/P Assessment and Plan Assessment and Plan NEURO/PSYCH: Acute toxic metabolic encephalopathy Probable benzodiazepine overdose Probable prescription drug abuse - Altered mentation most likely from benzodiazepine overdose,and sepsis. Ct head negative for acute findings - Propofol/fentanyl for sedation and ventilator synchrony if needed. Daily sedation vacation - Mentation appears to be improving - B12, TSH Ammonia normal RESP: Acute respiratory failure Bilateral pneumonia/aspiration Tobacco abuse, possible COPD - Continue with vent support and keep sat >90% - Ventilator bundle. DuoNeb scheduled and when necessary - SBT daily- attempt extubation, airway protection questionable - CT chest shows mild bilateral infiltrates pneumonia versus aspiration - Continue broad-spectrum antibiotics, add schedule vanc for MRSA CV: - Monitor HR and BP keep MAP>65mmHg GI: MRCP shows probable distal CBD stones - PTHC unsuccessful, no further procedures planned by GI IR at this time - CT abdomen pelvis shows dilated biliary tree, dilated main pancreatic duct, and dilated gallbladder suggestive of distal gallbladder obstruction - MRCP with probable distal CBD stones - Gastroenterology unable to complete ERCP, remains to find ampulla due to surgical changes - IV pantoprazole, bowel regimen - Keep nothing by mouth, start tube feedings with Jevity if patient not extubated : Acute kidney injury- secondary to dehydration Rhabdomyolysis Hypokalemia - Monitor renal function , I/O's, electrolytes replacement per protocol. - Bumex 2 mg IV x1 given 05/14 - Electrolyte replacement per protocol ID: Severe sepsis Bilateral pulmonary infiltrates present on admissions indicate pre hospital aspiration versus pneumonia Probable common biliary duct obstruction - Currently on Zosyn. Received one dose of vancomycin. Give 1 GM vanc and pharmacy dosing for MRSA - DCd Levaquin 05/14 - Follow-up on sputum blood cultures. Urine for Legionella and pneumococcal antigen neg - Sputum cx 05/13 MRSA and Serratia HEME: - Monitor CBC, CMP, coags ENDO: - Electrolyte replacement protocol PROPH: Bilateral lower extremity SCDs. SQ Lovenox, Protonix LINES: peripheral IVs Level 3 Patient is remains critically ill with sepsis and metabolic encephalopathy, unable to extubate yet due to questionable airway protection and severe weakness Levar Gil MD May 15, 2017 09:59
[2017-05-15] MEDS ORDERED: Vancomycin Consult Pharmacy 1 EA OTHER SCH (10:00)
[2017-05-15] MEDS ORDERED: VANCOMYCIN INJ 1,000 MG in SODIUM CHLOR 0.9% 250 ML INJ 250 ML IV ONE (10:00)
--- NOTE | 2017-05-15 10:49 | RADRPT ---
EXAM DATE/TIME: 05/15/2017 09:59 [facility] COMPARISON: CHEST SINGLE AP, May 14, 2017, 2:21. INDICATIONS : Shortness of breath. MEDICAL HISTORY : Carcinoma, breast. SURGICAL HISTORY : Mastectomy, left. Tubal ligation. Gastric resection with vagotomy ENCOUNTER: Subsequent ACUITY: 1 week PAIN SCORE: Non-responsive. LOCATION: Bilateral chest FINDINGS: A nasogastric tube has its tip in the stomach. The endotracheal tube has its tip in good position 4 cm above the savana. Bibasilar patchiness is noted consistent with atelectasis and/or infiltrate. T he heart is stable. CONCLUSION: 1. Stable bibasilar patchiness consistent with atelectasis and/or infiltrate. 2. Endotracheal tube and nasogastric tube remain in good position. Aleksandar Lamas MD on May 15, 2017 at 10:14 Board Certified Radiologist. This report was verified electronically.
--- NOTE | 2017-05-15 11:29 | ECHRPT ---
Indication: SYNCOPE CONCLUSIONS The left ventricular systolic function is hyperdynamic with an estimated ejection fraction in the ra nge of 65- 70%. Doppler parameters are consistent with impaired left ventricular relaxtion (grade 1 diastolic dysfun ction). Trace mitral valve regurgitation. There is mild tricuspid valve regurgitation. There is estimated moderate pulmonary hypertension present (range 50-60 mmHg). BP: 136 / 76 HR: 66 Rhythm: Sinus MEASUREMENTS (Male / Female) Normal Values Technical Quality:Good 2D ECHO LV Diastolic Diameter PLAX 4.1 cm 4.2 - 5.9 / 3.9 - 5.3 cm LV Systolic Diameter PLAX 2.8 cm IVS Diastolic Thickness 0.9 cm 0.6 - 1.0 / 0.6 - 0.9 cm LVPW Diastolic Thickness 0.9 cm 0.6 - 1.0 / 0.6 - 0.9 cm LV Relative Wall Thickness 0.4 RV Internal Dim ED PLAX 3.8 cm LVOT Diameter 1.7 cm Aortic Root Diameter 3.4 cm LA Systolic Diameter LX 2.7 cm 3.0 - 4.0 / 2.7 - 3.8 cm M-MODE AV Cusp Separation MM 2.2 cm DOPPLER AV Peak Velocity 171.0 cm/s AV Peak Gradient 11.7 mmHg AV Mean Gradient 5.0 mmHg AV Velocity Time Integral 19.8 cm LVOT Peak Velocity 132.0 cm/s LVOT Peak Gradient 7.0 mmHg LVOT Velocity Time Integral 20.2 cm AV Area Cont Eq vti 2.3 cm AV Area Cont Eq pk 1.8 cm Mitral E Point Velocity 78.8 cm/s Mitral A Point Velocity 108.0 cm/s Mitral E to A Ratio 0.7 LV E' Lateral Velocity 9.4 cm/s Mitral E to LV E' Lateral Ratio 8.4 LV E' Septal Velocity 8.0 cm/s Mitral E to LV E' Septal Ratio 9.9 TR Peak Velocity 321.0 cm/s TR Peak Gradient 41.2 mmHg PV Peak Velocity 143.0 cm/s PV Peak Gradient 8.2 mmHg FINDINGS LEFT VENTRICLE Normal left ventricular size. Wall thickness is normal. The left ventricular systolic function is hyperdynamic with an estimated ejection fraction in the ra nge of 65- 70%. No regional wall motion abnormalities are present. Doppler parameters are consistent with impaired left ventricular relaxtion (grade 1 diastolic dysfun ction). RIGHT VENTRICLE Normal right ventricular size and systolic function. LEFT ATRIUM The left atrial size is normal. RIGHT ATRIUM The right atrial size is normal. ATRIAL SEPTUM Normal atrial septal thickness without atrial level shunting by limited color doppler interrogation. AORTA The aortic root and proximal ascending aorta are normal in size on limited imaging. MITRAL VALVE Trace mitral valve regurgitation. Mild thickening of the mitral valve leaflets. No mitral valve stenosis. AORTIC VALVE Trileaflet aortic valve. No aortic valve stenosis or regurgitation. TRICUSPID VALVE Mild thickening of the tricuspid valve leaflets. There is mild tricuspid valve regurgitation. There is estimated moderate pulmonary hypertension present (range 50-60 mmHg). PULMONARY VALVE Normal appearing pulmonary valve with trace pulmonary insufficiency and no pulmonary stenosis. VESSELS The inferior vena cava is mildly dilated. There is less than 50% respiratory change in dimension of the inferior vena cava (abnormal). PERICARDIUM No pericardial effusion. Min Bentley DO (Electronically Signed) Final Date:15 May 2017 11:28
[2017-05-15 12:03] LABS: BLOOD GAS BASE EXCESS -0.7 mmol/L (-2-2); BLOOD GAS CARBOXYHEMOGLOBIN 1.7 % (0-4); BLOOD GAS HCO3 25 mmol/L (22-26); BLOOD GAS METHEMOGLOBIN 1.6 % (0-2); BLOOD GAS O2 HGB SATURATION 94 % (90-100); BLOOD GAS OXYGEN CONTENT 15.7 Vol % (12.0-20.0); BLOOD GAS PCO2 48 mmHg (38-42); BLOOD GAS PO2 100 mmHg (61-120); BLOOD GAS TOTAL HGB 11.8 G/DL (12.0-16.0); CRITICAL VALUE NO; DRAW SITE RT RADIAL; FIO2 40 %; NUMBER OF ARTERIAL PUNCTURES 1; OXYGEN DEVICE VENTILATOR; STAT NO; TEMP CORR TO 98.6; ULNAR PULSE PRESENT; VENT SETTINGS CPAP 5/5PS
[2017-05-15] MEDS: BENEPROTEIN POWDER 1 PACK G-TUBE SCH ×2 (13:00→17:05)
[2017-05-15 14:35] LABS: AUTOMATED NEUTROPHIL # 14.8 TH/MM3 (1.8-7.7); BASOPHIL % 0.1 % (0.0-2.0); HEMATOCRIT 36.2 % (35.0-46.0); HEMO FLAGS DIFF FINAL; LYMPH % 4.9 % (9.0-44.0); LYMPHOCYTE # 0.9 TH/MM3 (1.0-4.8); MEAN CELL VOLUME 101.3 FL (80.0-100.0); MEAN CORPUSCULAR HGB CONC 33.6 % (32.0-36.0); MONO % 10.3 % (0.0-8.0); NEUT % 84.7 % (16.0-70.0); PLATELET COUNT 298 TH/MM3 (150-450); RED BLOOD COUNT 3.58 MIL/MM3 (4.00-5.30); RED CELL DISTRIBUTION WIDTH 13.6 % (11.6-17.2); WHITE BLOOD COUNT 17.5 TH/MM3 (4.0-11.0)
[2017-05-15 14:52] LABS: ALKALINE PHOSPHATASE 92 U/L (45-117); ALT (GPT) 36 U/L (10-53); ANION GAP 11 MEQ/L (5-15); AST (GOT) 44 U/L (15-37); BICARBONATE 26.1 MEQ/L (21.0-32.0); BLOOD UREA NITROGEN 5 MG/DL (7-18); CHLORIDE 105 MEQ/L (98-107); GLOMERULAR FILTRATION RATE 97 ML/MIN (>89); MAGNESIUM 2.1 MG/DL (1.5-2.5); SODIUM (NA) 142 MEQ/L (136-145); TOTAL BILIRUBIN ADULT 0.6 MG/DL (0.2-1.0)
[2017-05-15 15:08] LABS: POTASSIUM 2.9 MEQ/L (3.5-5.1)
[2017-05-15] MEDS: POTASSIUM CHLOR 20 MEQ PREMIX 100 ML IV PRN ×3 (15:28→22:55)
--- NOTE | 2017-05-15 16:55 | MG ---
cc: PHIL BUCHANAN M.D. Lab No: Date: 05/15/17 Age: 71 Sex: F Race: Hyperventilation not performed. 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 Eyes rolling back, body shaking. The recording shows a symmetric 10 Hz 50 microvolt posterior rhythm. Recording overall is synchronous and symmetric. No epileptiform or seizure activity is noted. There were no hemisphere asymmetries. Hyperventilation was not performed. Photic stimulation was performed with some symmetric posterior driving at the higher frequencies. She had a right hand tremor, but that did not correlate with any seizure activity. She had some mild twitching, again that did not correlate with any seizure activity. IMPRESSION A normal awake EEG. No evidence for a focal or diffuse abnormality. I noticed her mild twitching was during photic stimulation but no epileptiform or seizure activity was noted there. MD MORTEZA Luna/ /4:37 PM /4:45 PM
[2017-05-15] MEDS ORDERED: PROPOFOL 1000 MG/100 ML INJ 100 ML ONE (17:49)
--- NOTE | 2017-05-15 20:23 | MB ---
cc: Rosalia PITTMAN M.D. DATE OF CONSULTATION 05/15/17 REASON FOR CONSULTATION COPD and respiratory failure. HISTORY OF PRESENT ILLNESS This is a 71-year-old white female who was brought to the emergency room with acute respiratory failure and has a history of COPD. The patient apparently was unresponsive and was found by EMS down on the floor and had to be intubated since she was unresponsive and breathing was shallow. She was brought into the ER and remained unresponsive and a CT of the head was done. She was placed on ventilator support and started on IV fluids and pressors and after mechanical ventilation and fluid resuscitation, she did become more responsive. The chest x-ray showed basilar pulmonary infiltrates and the patient also had an abdominal CT which showed some dilatation of the bile ducts. She was on IV antibiotics including Zosyn and vancomycin. The patient subsequently improved and was following commands and now being tried on C-PAP. She is down to FIO2 of 40%. PAST MEDICAL HISTORY 1. Partial gastric resection 2. Vagotomy 3. History of left mastectomy for breast cancer 4. Prior history of COPD, 5. History of tubal ligation. FAMILY HISTORY Noncontributory HABITS The patient was a prior smoker of one pack per day for over 40 years. No significant alcohol. ALLERGIES ASPIRIN REVIEW OF SYSTEMS The patient is intubated on ventilator support. PHYSICAL EXAMINATION GENERAL: This is a thinly built elderly lady on the ventilator, pale and mildly tachypneic but does respond to some questions and commands. VITAL SIGNS: Blood pressure 130/60, pulse 58, respirations 20, temperature 97.7. HEENT: Head normocephalic. Pupils reactive. Sclerae are clear. Tongue is moist. Throat has secretions. ET tube in place. NECK: Supple without venous distension or thyromegaly. CHEST: Distant breath sounds with occasional wheezes in the upper lung mccabe. HEART: The heart sounds are regular S1-S2. No murmur. ABDOMEN: Soft and protuberant without masses. No organomegaly or tenderness. Bowel sounds are active. EXTREMITIES: Mild varicosities. No edema. NEUROLOGIC: Reflexes 1+. The patient does move all her extremities with no focal deficit. SKIN: Dry and cool. IMPRESSION 1. Acute respiratory failure resolving. 2. Hypoxic encephalopathy, resolving. 3. Aspiration pneumonia 4. COPD with emphysema 5. History of breast cancer 6. Probable bile duct obstruction. 7. Sepsis. PLAN The patient has been placed on C-PAP and FIO2 of 35%, nebulized DuoNeb solution added q.i.d. We will continue with antibiotic therapy including vancomycin IV and Zosyn. The patient will be also maintained on IV fluids for hydration and potassium supplementation. Solu-Medrol 40 mg b.i.d. to be added as well. Follow up chest x-ray obtained in the a.m. If her respiratory parameters are good hopefully we could extubate her over the next 24-48 hours. Thank you, Dr. Gil, for this consultation. MD VICKEY Chauhan/ /7:55 PM /8:09 PM
[2017-05-15] MEDS: methylPREDNISolone SOD SUCC 40 MG/1 ML VIAL IV SCH (20:40)
[2017-05-15] MEDS: VANCOMYCIN 1,000 MG/NS 250 ML IV SCH ×2 (20:40)
[2017-05-15] MEDS: PROPOFOL 1000 MG/100 ML IV SCH (23:39)
[2017-05-16] VITALS (18 sets, daily range): BP systolic 110–185; BP diastolic 56–85; PULSE 67–103; RESP 16–43; TEMP 98.5–99.2; O2SAT 93–99
[2017-05-16] MEDS: POTASSIUM CHLOR 20 MEQ PREMIX 100 ML IV PRN (01:00)
[2017-05-16] MEDS: CHLORHEXIDINE GLUCONATE 2 % 1 PACK (2 CLOTHS) TOP SCH (01:00)
[2017-05-16] MEDS: RESP: ALBUTEROL 2.5 MG/IPRATROPIUM 0.5 MG NEB (SCH) NEB ×4 (03:31→20:34)
[2017-05-16 05:42] LABS: AUTOMATED NEUTROPHIL # 9.9 TH/MM3 (1.8-7.7); BASOPHIL % 0.1 % (0.0-2.0); HEMATOCRIT 34.4 % (35.0-46.0); HEMO FLAGS DIFF FINAL; LYMPH % 5.1 % (9.0-44.0); LYMPHOCYTE # 0.6 TH/MM3 (1.0-4.8); MEAN CELL VOLUME 100.4 FL (80.0-100.0); MEAN CORPUSCULAR HEMOGLOBIN 33.7 PG (27.0-34.0); MEAN CORPUSCULAR HGB CONC 33.6 % (32.0-36.0); MONO % 4.5 % (0.0-8.0); NEUT % 90.3 % (16.0-70.0); PLATELET COUNT 278 TH/MM3 (150-450); RED BLOOD COUNT 3.43 MIL/MM3 (4.00-5.30); RED CELL DISTRIBUTION WIDTH 13.3 % (11.6-17.2)
[2017-05-16] MEDS: PIPERACIL-TAZO 3.375 GM PREMIX 50 ML IV SCH ×3 (05:48→17:00)
--- NOTE | 2017-05-16 06:01 | RADRPT ---
EXAM DATE/TIME: 05/16/2017 04:59 [facility] COMPARISON: CHEST SINGLE AP, May 15, 2017, 9:59. INDICATIONS : Short of breath. MEDICAL HISTORY : Carcinoma, breast SURGICAL HISTORY : Mastectomy, left. Tubal ligation. Gastric resection with vagotomy ENCOUNTER: Subsequent ACUITY: 1 week PAIN SCORE: 0/10 LOCATION: Bilateral chest FINDINGS: Endotracheal tube tip well above the savana. Gastric tube in the stomach. Persistent consolidation in the left lower lung with loss of delineation of the left hemidiaphragm. Mild interstitial promine nce in the right lower lung without focal areas of consolidation. No evidence of pneumothorax. Fract ure mid left clavicle. Hemoclips in the left axilla. CONCLUSION: Persistent left lower lobe consolidation. Bobby Hilton MD on May 16, 2017 at 5:59 Board Certified Radiologist. This report was verified electronically.
[2017-05-16 06:09] LABS: ALKALINE PHOSPHATASE 83 U/L (45-117); ALT (GPT) 34 U/L (10-53); ANION GAP 5 MEQ/L (5-15); AST (GOT) 39 U/L (15-37); BICARBONATE 31.3 MEQ/L (21.0-32.0); BLOOD UREA NITROGEN 12 MG/DL (7-18); CHLORIDE 108 MEQ/L (98-107); GLOMERULAR FILTRATION RATE 97 ML/MIN (>89); MAGNESIUM 2.3 MG/DL (1.5-2.5); POTASSIUM 4.1 MEQ/L (3.5-5.1); SODIUM (NA) 144 MEQ/L (136-145); TOTAL BILIRUBIN ADULT 0.3 MG/DL (0.2-1.0)
[2017-05-16] MEDS: PROPOFOL 1000 MG/100 ML IV SCH (08:46)
[2017-05-16] MEDS: methylPREDNISolone SOD SUCC 40 MG/1 ML VIAL IV SCH ×2 (08:46→20:49)
[2017-05-16] MEDS: MUPIROCIN 2% OINT 1 APPLIC/GM SYR NASAL SCH ×2 (08:47→20:49)
[2017-05-16] MEDS: PANTOPRAZOLE SODIUM 40 MG VIAL IV SCH (08:47)
[2017-05-16] MEDS: BENEPROTEIN POWDER 1 PACK G-TUBE SCH ×3 (08:47→18:00)
[2017-05-16] MEDS: CHLORHEXIDINE 0.12% (ORAL KIT) 15 ML CUP MT SCH ×2 (08:47→20:00)
[2017-05-16] MEDS ORDERED: FUROSEMIDE 40 MG/4 ML VIAL ONE (09:11)
[2017-05-16] MEDS: VANCOMYCIN 1,000 MG/NS 250 ML IV SCH ×4 (10:00→20:49)
[2017-05-16] MEDS ORDERED: FUROSEMIDE 40 MG/4 ML VIAL IV ONE (11:15)
--- NOTE | 2017-05-16 11:16 | HHI.CCPN ---
Subjective Remarks/Hospital Course Patient is a 71-year-old female with known past medical history of left breast cancer, tobacco abuse. Unfortunately no further history can be obtained as the patient is intubated and there is no family available. According to the ER history, patient was brought in by EMS after neighbors found her down on the floor, unresponsive. She was found with shallow respirations hypopneic and was intubated for airway protection. She was last seen normal about 1-1/2 days ago. In the ER patient remained unresponsive. CT of the head was unremarkable. Abnormal labs included a white count of 15.9 with 88% neutrophils , sodium 129 potassium 6.5, BUN 24 and creatinine of 1.35. CPK was elevated at 528. Patient received IV fluid boluses. Patient's elevated white count and altered mentation was suspicious for sepsis. I have ordered CT chest abdomen pelvis which showed mild chest infiltrates, and evidence of common bile duct obstruction (bilateral dilated biliary tree, main pancreatic duct, and gallbladder dilation). I have started patient on Zosyn 3.375 g every 6 hours, and single dose of vancomycin. Gastroenterology had been consulted. Initial K was 6.5 but this was hemolyzed. Repeat CMP is pending. I evaluated patient in ED. patient is clinically dehydrated and remains encephalopathy. Additional fluid boluses ordered and start antibiotics STAT, if not given in ED. Gastroenterology had been consulted for possible common bile duct obstruction SUBJ: 05/12: Patient remains intubated heavily sedated. ERCP planned for today. White count trending down. Daughter gave me history yesterday of possible prescription drug abuse and I believe this might have contributed to the altered mentation. Will attempt weaning trials after ERCP 05/13: Remains intubated encephalopathic. ERCP could not be performed due to anatomical changes from gastric surgery-unable to find ampulla. MRCP showed intra-and extrahepatic biliary dilatation and possible distal CBD stones. Discussed with Dr. Hitchcock. Plan for PTC by IR followed by possible rendezvous ERCP. mental status is slightly improved and airway protection would be an issue if extubated 05/14: Patient remains lethargic but tolerating CPAP, weakly following commands, PTHC attempted by IR, but unsuccessful. Will proceed with CPAP trial and airway protection questionable. CXR shows LLL consolidation 05/15: Remains intubated sedation held since last 1 hour. Patient is more awake , but appears quite weak. Follows commands weekly 4. Sputum culture growing Serratia and MRSA 05/16: Patient is morbidly tolerating CPAP better today. Following commands. Chest x-ray shows persistent left lower lobe infiltrate. Non focal exam, will cancel MRI Objective Vital Signs Date Time Temp Pulse Resp B/P Pulse Ox O2 Delivery O2 Flow Rate FiO2 05/16/17 10:23 95 Nasal Cannula 4 36 05/16/17 06:00 82 05/16/17 04:00 98.8 16 110/57 Intake and Output 05/15/17 05/15/17 05/16/17 08:00 16:00 00:00 Intake Total 412 ml 515 ml 1010 ml Output Total 350 ml 250 ml 550 ml Balance 62 ml 265 ml 460 ml Result Diagram: 05/16/17 0520 05/16/17 0520 Other Results Laboratory Tests Test 05/15/17 11:58 Blood Gas Puncture Site RT RADIAL Blood Gas Patient Temperature 98.6 Blood Gas HCO3 25 mmol/L (22-26) Blood Gas Base Excess -0.7 mmol/L (-2-2) Blood Gas Oxygen Saturation 94 % (90-100) Arterial Blood pH 7.33 (7.380-7.420) Arterial Blood Partial 48 mmHg (38-42) Pressure CO2 Arterial Blood Partial 100 mmHg Pressure O2 (61-120) Arterial Blood Oxygen Content 15.7 Vol % (12.0-20.0) Arterial Blood 1.7 % (0-4) Carboxyhemoglobin Arterial Blood Methemoglobin 1.6 % (0-2) Blood Gas Hemoglobin 11.8 G/DL (12.0-16.0) Oxygen Delivery Device VENTILATOR Blood Gas Ventilator Setting CPAP 5/5PS Blood Gas Inspired Oxygen 40 % Imaging CT chest: Bilateral infiltrates CT abdomen: Dilated biliary tree, gallbladder and main pancreatic duct indicating distal CBD obstruction Objective Remarks GENERAL: Thin disheveled elderly white female patient who is intubated, sedated , head is turned to right side SKIN: Warm/dry. HEAD: Atraumatic. Normocephalic. EYES: Pupils equal and round. No injection or drainage. ENT: No nasal bleeding or discharge. Orotracheally intubated NECK: Trachea midline. No JVD. CARDIOVASCULAR: NSR. No murmur appreciated. RESPIRATORY: No accessory muscle use. Clear to auscultation. Breath sounds equal bilaterally. GASTROINTESTINAL: Abdomen soft, non-tender, nondistended. Hepatic and splenic margins not palpable. MUSCULOSKELETAL: No obvious deformities. No clubbing. No cyanosis. No edema. NEUROLOGICAL: Intubated, off sedation +spontaneous eye opening. Moves all extremities purposefully, follows commands x4. More awake today Urinary Catheter: Yes Assessment to: Continue A/P Assessment and Plan Assessment and Plan NEURO/PSYCH: Acute toxic metabolic encephalopathy Probable benzodiazepine overdose Probable prescription drug abuse - Altered mentation most likely from benzodiazepine overdose,and sepsis. Ct head negative for acute findings. Encephalopathy improving - Hold all sedation for possible extubation - B12, TSH Ammonia normal - EEG ordered to rule out partial seizures RESP: Acute respiratory failure Bilateral pneumonia/aspiration Tobacco abuse, possible COPD - Continue with vent support and keep sat >90% - Ventilator bundle. DuoNeb scheduled and when necessary - SBT daily- attempt extubation today - CT chest shows mild bilateral infiltrates pneumonia versus aspiration - Continue broad-spectrum with Zosyn and vancomycin CV: - Monitor HR and BP keep MAP>65mmHg GI: MRCP shows probable distal CBD stones - PTHC unsuccessful, no further procedures planned by GI IR at this time - CT abdomen pelvis shows dilated biliary tree, dilated main pancreatic duct, and dilated gallbladder suggestive of distal gallbladder obstruction - MRCP with probable distal CBD stones - Gastroenterology unable to complete ERCP, remains to find ampulla due to surgical changes - IV pantoprazole, bowel regimen - Tube feedings with Jevity. Hold for extubation : Acute kidney injury- secondary to dehydration Rhabdomyolysis Hypokalemia - Monitor renal function , I/O's, electrolytes replacement per protocol. - Bumex 2 mg IV x1 given 05/14, given 40 mg Lasix 05/15 and 05/16 - Electrolyte replacement per protocol ID: Severe sepsis Bilateral pulmonary infiltrates present on admissions indicate pre hospital aspiration versus pneumonia Probable common biliary duct obstruction - Currently on Zosyn and Vanc. DC Zosyn, start Rocephin for Serratia and continue vancomycin for MRSA - DCd Levaquin 05/14 - Urine for Legionella and pneumococcal antigen neg - Sputum cx 05/13 MRSA and Serratia HEME: - Monitor CBC, CMP, coags ENDO: - Electrolyte replacement protocol PROPH: - Bilateral lower extremity SCDs. SQ Lovenox, Protonix LINES: - peripheral IVs Level 3 Levar Gil MD May 16, 2017 11:16 Levar Gil MD May 16, 2017 11:16 Levar Gil MD May 16, 2017 11:16
[2017-05-16] MEDS: BUDESONIDE-FORMOTEROL 160/4.5 MCG INHALER INH SCH ×2 (14:00→21:00)
--- NOTE | 2017-05-16 17:57 | HHI.PR ---
Subjective Remarks Extubated and on O2 at 4L. Alert and Oriented..Sats 96 . Good output. CXR shows a Left lower lobe infiltrate. Objective Vital Signs Date Time Temp Pulse Resp B/P Pulse Ox O2 Delivery O2 Flow Rate FiO2 05/16/17 16:00 98.6 68 43 181/79 93 05/16/17 16:00 103 05/16/17 14:00 103 05/16/17 12:00 98.6 80 21 152/74 95 05/16/17 12:00 103 05/16/17 10:23 95 Nasal Cannula 4 36 05/16/17 10:00 103 05/16/17 08:09 96 35 05/16/17 08:00 99.2 82 24 140/66 96 05/16/17 08:00 103 05/16/17 08:00 40 05/16/17 06:00 82 05/16/17 04:00 98.8 68 16 110/57 99 05/16/17 04:00 40 05/16/17 04:00 68 05/16/17 03:34 99 Ventilator 05/16/17 03:26 99 40 05/16/17 02:00 71 05/16/17 00:12 98 40 05/16/17 00:00 74 05/16/17 00:00 40 05/16/17 00:00 98.9 74 16 114/56 99 05/15/17 22:00 80 05/15/17 21:27 98 40 05/15/17 20:00 77 05/15/17 20:00 40 05/15/17 20:00 99.2 77 16 112/58 98 05/15/17 18:00 81 I/O 05/15/17 05/15/17 05/15/17 05/16/17 05/16/17 05/16/17 07:00 15:00 23:00 07:00 15:00 23:00 Intake Total 412 ml 515 ml 1010 ml 890 ml 431 ml Output Total 350 ml 250 ml 550 ml 700 ml 2000 ml Balance 62 ml 265 ml 460 ml 190 ml -1569 ml Intake Oral 120 ml IV Total 412 ml 455 ml 886 ml 700 ml 311 ml Tube Feeding 60 ml 64 ml 130 ml Other 60 ml 60 ml Output Urine Total 350 ml 250 ml 550 ml 700 ml 2000 ml # Bowel Movements 0 0 Result Diagram: 05/16/1751905/16/17519 Objective Remarks GENERAL: This is a thinly built elderly lady on O2 and alert. HEENT: Head normocephalic. Pupils reactive. Sclerae are clear. Tongue is moist. Throat clear NECK: Supple without venous distension or thyromegaly. CHEST: Distant breath sounds with occasional wheezes in the upper lung mccabe. Few basal crackles. HEART: The heart sounds are regular S1-S2. No murmur. ABDOMEN: Soft and protuberant without masses. No organomegaly or tenderness. Bowel sounds are active. EXTREMITIES: Moves all. No edema. NEUROLOGIC: Reflexes 1+. no focal deficit. SKIN: Dry and cool. Assessment and Plan Assessment and Plan IMPRESSION 1. Acute respiratory failure resolving. 2. Hypoxic encephalopathy, resolving. 3. Aspiration pneumonia 4. COPD with emphysema 5. History of breast cancer 6. Probable bile duct obstruction. 7. Sepsis. Plan : 1. Wean o2 to 3 L. 2. Nebs qid , duoneb. 3. Cont Antibiotics as ordered. 4. Solumedrol 40 mg IV BID 5. Up with help. 6. Soft diet. 7. D/c Sedation. 8. PFT when stable. Rosalia Nelson MD May 16, 2017 17:56
[2017-05-17] VITALS (21 sets, daily range): BP systolic 137–204; BP diastolic 69–136; PULSE 70–108; RESP 19–43; TEMP 98.2–99.2; O2SAT 74–99
[2017-05-17] MEDS: PIPERACIL-TAZO 3.375 GM PREMIX 50 ML IV SCH ×5 (00:47→23:13)
[2017-05-17] MEDS: RESP: ALBUTEROL 2.5 MG/IPRATROPIUM 0.5 MG NEB (SCH) NEB ×4 (03:46→21:48)
[2017-05-17] MEDS: CHLORHEXIDINE GLUCONATE 2 % 1 PACK (2 CLOTHS) TOP SCH (04:00)
[2017-05-17] MEDS: methylPREDNISolone SOD SUCC 40 MG/1 ML VIAL IV SCH ×2 (08:31→21:18)
[2017-05-17] MEDS: MUPIROCIN 2% OINT 1 APPLIC/GM SYR NASAL SCH ×2 (08:31→21:19)
[2017-05-17] MEDS: PANTOPRAZOLE SODIUM 40 MG VIAL IV SCH (08:31)
[2017-05-17] MEDS: BENEPROTEIN POWDER 1 PACK G-TUBE SCH ×3 (08:35→16:31)
[2017-05-17] MEDS: CHLORHEXIDINE 0.12% (ORAL KIT) 15 ML CUP MT SCH ×2 (08:35→20:00)
[2017-05-17] MEDS: BUDESONIDE-FORMOTEROL 160/4.5 MCG INHALER INH SCH ×2 (09:00→21:00)
[2017-05-17] MEDS ORDERED: PHARMACY ORDERED LAB ONE (09:45)
--- NOTE | 2017-05-17 10:44 | HHI.CCPN ---
Subjective Remarks/Hospital Course Patient is a 71-year-old female with known past medical history of left breast cancer, tobacco abuse. Unfortunately no further history can be obtained as the patient is intubated and there is no family available. According to the ER history, patient was brought in by EMS after neighbors found her down on the floor, unresponsive. She was found with shallow respirations hypopneic and was intubated for airway protection. She was last seen normal about 1-1/2 days ago. In the ER patient remained unresponsive. CT of the head was unremarkable. Abnormal labs included a white count of 15.9 with 88% neutrophils , sodium 129 potassium 6.5, BUN 24 and creatinine of 1.35. CPK was elevated at 528. Patient received IV fluid boluses. Patient's elevated white count and altered mentation was suspicious for sepsis. I have ordered CT chest abdomen pelvis which showed mild chest infiltrates, and evidence of common bile duct obstruction (bilateral dilated biliary tree, main pancreatic duct, and gallbladder dilation). I have started patient on Zosyn 3.375 g every 6 hours, and single dose of vancomycin. Gastroenterology had been consulted. Initial K was 6.5 but this was hemolyzed. Repeat CMP is pending. I evaluated patient in ED. patient is clinically dehydrated and remains encephalopathy. Additional fluid boluses ordered and start antibiotics STAT, if not given in ED. Gastroenterology had been consulted for possible common bile duct obstruction SUBJ: 05/12: Patient remains intubated heavily sedated. ERCP planned for today. White count trending down. Daughter gave me history yesterday of possible prescription drug abuse and I believe this might have contributed to the altered mentation. Will attempt weaning trials after ERCP 05/13: Remains intubated encephalopathic. ERCP could not be performed due to anatomical changes from gastric surgery-unable to find ampulla. MRCP showed intra-and extrahepatic biliary dilatation and possible distal CBD stones. Discussed with Dr. Hitchcock. Plan for PTC by IR followed by possible rendezvous ERCP. mental status is slightly improved and airway protection would be an issue if extubated 05/14: Patient remains lethargic but tolerating CPAP, weakly following commands, PTHC attempted by IR, but unsuccessful. Will proceed with CPAP trial and airway protection questionable. CXR shows LLL consolidation 05/15: Remains intubated sedation held since last 1 hour. Patient is more awake , but appears quite weak. Follows commands weekly 4. Sputum culture growing Serratia and MRSA 05/16: Patient is tolerating CPAP better today. Following commands. Chest x- ray shows persistent left lower lobe infiltrate. Non focal exam, will cancel MRI 05/17: Extubated yesterday, tolerating well. Good O2 saturation on RA. AOx2. Will consult psych re probable benzo abuse Objective Vital Signs Date Time Temp Pulse Resp B/P Pulse Ox O2 Delivery O2 Flow Rate FiO2 05/17/17 09:45 98 21 05/17/17 06:00 90 05/17/17 04:00 98.6 30 187/81 05/16/17 20:34 Nasal Cannula 4.00 Intake and Output 05/16/17 05/16/17 05/16/17 07:59 15:59 23:59 Intake Total 890 ml 431 ml 463 ml Output Total 700 ml 2000 ml 1000 ml Balance 190 ml -1569 ml -537 ml Result Diagram: 05/16/17 0505/16/[address] chest: Bilateral infiltrates CT abdomen: Dilated biliary tree, gallbladder and main pancreatic duct indicating distal CBD obstruction Objective Remarks GENERAL: Thin disheveled elderly white female patient who is lying in bed SKIN: Warm/dry. HEAD: Atraumatic. Normocephalic. EYES: Pupils equal and round. No injection or drainage. ENT: No nasal bleeding or discharge. NECK: Trachea midline. No JVD. CARDIOVASCULAR: NSR. No murmur appreciated. RESPIRATORY: No accessory muscle use. Clear to auscultation. Breath sounds equal bilaterally. GASTROINTESTINAL: Abdomen soft, non-tender, nondistended. Hepatic and splenic margins not palpable. MUSCULOSKELETAL: No obvious deformities. No clubbing. No cyanosis. No edema. NEUROLOGICAL: Alert awake, oriented 2. Generalized weakness but no focal deficits. Speech is normal A/P Assessment and Plan Assessment and Plan NEURO/PSYCH: Acute toxic metabolic encephalopathy Probable benzodiazepine overdose Probable prescription drug abuse - Altered mentation most likely from benzodiazepine overdose,and sepsis. - Ct head negative for acute findings. Encephalopathy resolved - Psych consulted for probable benzo OD - B12, TSH Ammonia normal - EEG normal RESP: Acute respiratory failure-resolved Bilateral pneumonia/aspiration (MRSA, serratia) Tobacco abuse, possible COPD - Extubated 05/16, tolerating well. DuoNeb scheduled and when necessary - CT chest shows mild bilateral infiltrates pneumonia versus aspiration - Continue broad-spectrum with Rocephin and vancomycin CV: - Monitor HR and BP keep MAP>65mmHg GI: MRCP shows probable distal CBD stones - PTHC unsuccessful, no further procedures planned by GI IR at this time - CT abdomen pelvis shows dilated biliary tree, dilated main pancreatic duct, and dilated gallbladder suggestive of distal gallbladder obstruction - MRCP with probable distal CBD stones - Gastroenterology unable to complete ERCP, remains to find ampulla due to surgical changes - IV pantoprazole, bowel regimen - Diet regular per speech rec : Acute kidney injury- secondary to dehydration Rhabdomyolysis Hypokalemia - Monitor renal function , I/O's, electrolytes replacement per protocol. - Bumex 2 mg IV x1 given 05/14, given 40 mg Lasix 05/15 and 05/16 - Electrolyte replacement per protocol ID: Severe sepsis Pre hospital aspiration pneumonitis versus pneumonia (MRSA, serratia) Probable common biliary duct obstruction - Currently on Rocephin for Serratia and continue vancomycin for MRSA - DCd Levaquin 05/14 - Urine for Legionella and pneumococcal antigen neg - Sputum cx 05/13 MRSA and Serratia HEME: - Monitor CBC, CMP, coags ENDO: - Electrolyte replacement protocol PROPH: - Bilateral lower extremity SCDs. SQ Lovenox, Protonix LINES: - peripheral IVs Level 2 Hospitalist consulted to assume care 05/18/17. Transfer to [facility] [place] with telemetry Levar Gil MD May 17, 2017 10:44
[2017-05-17] MEDS: VANCOMYCIN 1,000 MG/NS 250 ML IV SCH ×4 (13:30→23:13)
--- NOTE | 2017-05-17 14:58 | PD.PSY.CON ---
Provisional Diagnosis Admission Date May 11, 2017 at 09:36 History of Present Illness Service Psychiatry Consult Requested By Reason for Consult Delirium Primary Care Physician Unknown HPI Patient is a 71-year-old woman, domiciled alone, , she has 2 daughters, she has psychiatric history of depression, OCD, alcohol use disorder , in sustained full remission, nicotine use disorder, no reported psychiatric hospitalizations, no reported previous suicidal attempts, no evidence of benzodiazepines abuse in the past, with known past medical history of left breast cancer and COPD. According to the ER history, patient was brought in by EMS after neighbors found her down on the floor, unresponsive. She was found with shallow respirations hypopneic and was intubated for airway protection. She was last seen normal about 1-1/2 days ago. In the ER patient remained unresponsive. CT of the head was unremarkable. Abnormal labs included a white count of 15.9 with 88% neutrophils, sodium 129 potassium 6.5, BUN 24 and creatinine of 1.35. CPK was elevated at 528. Patient received IV fluid boluses. Patient's elevated white count and altered mentation was suspicious for sepsis. Patient is not extubated, consulted to psychiatry due to potential benzodiazepine overdose. Patient was seen today for psychiatric reevaluation, but patient seems to be very disoriented, confused, not giving any reliable or logical or meaningful information that can contribute for the psychiatric assessment at this moment. Patient seems to be very distressed, afraid, she related that she she is flying in [place] in [place] and she is visibly distressed by that. Patient doesnt know the date and she doesnt know the reason she is in the hospital. Collateral information from her daughter was obtained, Theresarajendra Paz and June Rico, by phone. They clarify that the patient has psychiatric history of OCD and depression, but she has never been hospitalized. They also denied previous suicidal attempts. They have the suspicion the patient might be most probably abusing benzodiazepines, since October she has been more isolated, becoming more reclusive and distant from her family. The patient is not functioning very well in her regular daily activities, his health by a neighbor which name is Mickey. He helps with the food shopping, laundry, and her finances. They think that this man known now too much information about her mother and is withholding this information from them. They say that the patient also have a history of doctor offices jumping and poor compliant with medications. They are not sure if this was an intentional and overdose, but apparently she doesnt have a reason to do this as long as a know. Review of Systems ROS Limitations: Unresponsive, Uncooperative Past Family Social History Coded Allergies: aspirin (Unverified Allergy, Mild, STOMACH IRRITATION, 05/15/17) Unable to Obtain Active Prescriptions or Reported Meds Current Medications Medications (Trade) Dose Ordered Sig/Jono Route Start Time Stop Time Status Last Admin (NS Flush) 2 ml UNSCH PRN IV FLUSH 05/11/17 07:30 (Tylenol) 650 mg Q6H PRN PO 05/11/17 09:45 05/13/17 17:02 (Peridex 0.12% Liq) 15 ml BID@08,20 MT 05/11/17 20:00 05/17/17 08:35 (Protonix Inj) 40 mg DAILY IV 05/12/17 09:00 05/17/17 08:31 (Lovenox Inj) 30 mg Q24H SQ 05/11/17 11:00 Hold 05/13/17 11:31 Miscellaneous Information 1 Q361D XX 05/11/17 09:45 (Chlorhexidine 2% Cloth) Taper DAILY@04 TOP 05/12/17 04:00 05/08/18 03:59 05/17/17 04:00 Chlorhexidine Gluconate 3 pack 3 pack UNSCH PRN TOP 05/11/17 09:45 Piperacillin Sod/ Tazobactam Sod 50 ml @ 100 mls/hr Q6H IV 05/11/17 11:00 05/17/17 06:31 Potassium Chloride 100 ml @ 50 mls/hr Q2H PRN IV 05/11/17 13:45 (KCl 20 Meq Premix Inj) 100 ml @ 50 mls/hr Q2H PRN IV 05/11/17 13:45 05/16/17 01:00 Potassium Bicarb/ Potassium Chloride 50 meq 50 meq UNSCH PRN PO 05/11/17 13:45 Potassium Chloride 100 ml @ 25 mls/hr UNSCH PRN IV 05/11/17 13:45 Potassium Chloride 100 ml @ 50 mls/hr Q2H PRN IV 05/11/17 13:45 05/13/17 07:56 (Magnesium Sulfate Inj/NS Inj) 100 ml @ 50 mls/hr UNSCH PRN IV 05/11/17 13:45 Magnesium Oxide 800 mg 800 mg UNSCH PRN PO 05/11/17 13:45 (Magnesium Sulfate Inj/NS Inj) 100 ml @ 50 mls/hr UNSCH PRN IV 05/11/17 13:45 Potassium Phosphate 2000 mg 2,000 mg Q4H PRN PO 05/11/17 13:45 (Sodium Phosphate Inj/NS 250 ml Inj) 250 ml @ 42 mls/hr UNSCH PRN IV 05/11/17 13:45 Potassium Phosphate 2000 mg 2,000 mg UNSCH PRN PO/TUBE 05/11/17 13:45 (Potassium Phosphate Inj/NS 250 ml Inj) 260 ml @ 42 mls/hr UNSCH PRN IV 05/11/17 13:45 Mupirocin 1 applic 1 applic BID NASAL 05/12/17 09:00 05/17/17 08:31 (Vancomycin Consult Pharmacy) 0 ml @ 0 mls/hr UNSCH OTHER 05/15/17 10:00 Protein 1 pack 1 pack TID G-TUBE 05/15/17 13:00 05/16/17 13:00 (Vancomycin Inj/ NS 250 ml Inj) 250 ml @ 250 mls/hr Q12H IV 05/15/17 22:00 05/16/17 20:49 (SoluMEDROL INJ) 40 mg BID IV 05/15/17 21:00 05/17/17 08:31 (Symbicort 160-4.5 Inh) 1 puff Q12HR INH 05/16/17 14:00 05/16/17 21:00 Family History No family psychiatric history Social History Patient lives alone in her own house, she is , she has 2 daughters, her main support at this moment is a neighbor. Patient's Strengths (min. 2) Under observation Physical Exam Vital Signs Vital Signs Date Time Temp Pulse Resp B/P Pulse Ox O2 Delivery O2 Flow Rate FiO2 05/17/17 09:45 98 21 05/17/17 08:00 78 05/17/17 04:00 98.6 30 187/81 05/16/17 20:34 Nasal Cannula 4.00 I/O 05/16/17 05/16/17 05/16/17 07:59 15:59 23:59 Intake Total 890 ml 431 ml 463 ml Output Total 700 ml 2000 ml 1000 ml Balance 190 ml -1569 ml -537 ml Lab Results 05/16/17 0520 05/16/17 0520 Mental Status Examination Limited due to the level of confusion and delirium Appearance Elderly woman very skinny, she looks acutely ill, for hygiene, uncooperative, very confused Speech: Incoherent Orientation: Person Memory: Impaired (describe) Thought Process: Loose Association, Tangential Thought Content: Bizarre thinking Suicidal Ideation: No Previous Suicide Attempts: No Homicidal Ideation: No Previous Homicide Attempts: No Judgment: Poor Affect: Other (euphoric) Affect if Inappropriate: Labile Mood: Irritable Assessment & Plan Problem List: (1) Delirium due to another medical condition Assessment & Plan: On psychiatric evaluation patient presents acutely delirious , very confused, disoriented, with pronounced fluctuation of consciousness, attention deficit and incoherent speech. At this moment we are unable to complete a full psychiatric assessment. However we did not have any evidence suicidal attempt in her recent overdose. We contacted her 2 daughters, but they are unable to confirm if the patient overdosed with suicidal intentions. They do not think that she did. Patient is to be reevaluated once she returns to baseline. At this moment the patient does not qualify for psychiatric admission for involuntary commitment. Patient might benefit of a low dose of antipsychotic to help with delirium, usually Seroquel 12.5 mg twice a day might help. Benzodiazepine abuse is highly suspicious, patient might benefit of CIWA protocol avoid benzodiazepine withdrawal. We'll follow-up ICD Code: F05 Assessment & Plan Estimated LOS: Kirshna Green MD May 17, 2017 14:58
--- NOTE | 2017-05-17 18:53 | HHI.PR ---
Subjective Remarks Extubated and on O2 at 4L.Breathing is better. Very agitated and pulling at sheets. .Sats 96 . Has H/O Valium use . CXR shows a Left lower lobe infiltrate. Objective Vital Signs Date Time Temp Pulse Resp B/P Pulse Ox O2 Delivery O2 Flow Rate FiO2 05/17/17 16:00 87 24 164/87 98 05/17/17 16:00 87 05/17/17 12:00 98.2 104 26 167/88 05/17/17 12:00 104 05/17/17 10:00 101 05/17/17 10:00 88 29 154/101 93 05/17/17 09:45 98 21 05/17/17 09:00 96 05/17/17 09:00 96 19 137/69 91 05/17/17 08:00 98.7 78 43 155/85 94 05/17/17 08:00 78 05/17/17 07:00 70 26 160/77 05/17/17 06:00 90 05/17/17 04:00 98.6 86 30 187/81 95 05/17/17 04:00 90 05/17/17 02:00 84 05/17/17 00:00 99.1 76 19 204/94 99 05/17/17 00:00 76 05/16/17 22:00 67 05/16/17 20:34 96 Nasal Cannula 4.00 05/16/17 20:00 98.5 76 29 185/85 95 05/16/17 20:00 76 I/O 05/16/17 05/16/17 05/16/17 05/17/17 05/17/17 05/17/17 07:00 15:00 23:00 07:00 15:00 23:00 Intake Total 890 ml 431 ml 463 ml 220 ml 495 ml Output Total 700 ml 2000 ml 1000 ml 1300 ml 950 ml Balance 190 ml -1569 ml -537 ml -1080 ml -455 ml Intake Oral 120 ml 60 ml 120 ml 240 ml IV Total 700 ml 311 ml 403 ml 100 ml 255 ml Tube Feeding 130 ml Other 60 ml Output Urine Total 700 ml 2000 ml 1000 ml 1300 ml 950 ml # Bowel Movements 0 2 4 1 Result Diagram: 05/16/1751905/16/17 0520 Objective Remarks GENERAL: This is a thinly built elderly lady on O2 and agitated HEENT: Head normocephalic. Pupils reactive. Sclerae are clear. Tongue is moist. Throat clear NECK: Supple without venous distension or thyromegaly. CHEST: Distant breath sounds with occasional wheezes in the upper lung mccabe. Occ basal crackles. HEART: The heart sounds are regular S1-S2. No murmur. ABDOMEN: Soft and protuberant without masses. No organomegaly or tenderness. Bowel sounds are active. EXTREMITIES: Moves all. No edema. NEUROLOGIC: Reflexes 1+. no focal deficit. SKIN: Dry and cool. Assessment and Plan Assessment and Plan IMPRESSION 1. Acute respiratory failure resolving. 2. Hypoxic encephalopathy, resolving. 3. Aspiration pneumonia 4. COPD with emphysema 5. History of breast cancer 6. Probable bile duct obstruction. 7. Sepsis. Plan : 1. Wean o2 to 2 L. 2. Nebs qid , duoneb. 3. Cont Antibiotics as ordered. 4. Cont Solumedrol 40 mg IV BID 5. Add Seroquel 25 mg bid 6. Soft diet. 7. Add Xanax .25 mg tid prn 8. PFT when stable. 9. CBC,BMP ,EEG in Rosalia Nelson MD May 17, 2017 18:53
--- NOTE | 2017-05-17 19:23 | MB ---
cc: ADAN SARAH M.D. DATE OF CONSULTATION 05/17/17 DATE OF 1945 AGE 71-year-old woman. REASON FOR CONSULTATION Possible seizure. HISTORY OF PRESENT ILLNESS The patient is a 71-year-old woman with a history left breast cancer, tobacco abuse, came in intubated. Apparently, was found at home on the floor unresponsive. She had a CT of the head that was unremarkable. Was found to have some evidence of common bile duct obstruction, placed on antibiotics, seen by GI. The patient apparently had an EEG a couple days ago that was really unremarkable per report for possible seizures. The family was told that what they saw basically she had developed some type of fear of falling, for example, they tried to adjust the bed and she grabbed onto the bars and extended her arms and eyes were open wide and she was very fearful. Apparently, something similar happened today. She was extubated today. There is some possible benzos abuse, so certainly she could be having some withdrawal seizures. PHYSICAL EXAMINATION VITAL SIGNS: On exam her vitals are temperature is 98.2, heart rate 87, respiratory rate 24, blood pressure is 164/87. NEURO: She is awake and alert. She thinks she is at [facility]. She knows her date of . She knows it is May. She could not tell me the day of the week, the date nor the year. Her speech is difficult to understand but she mumbles. She is not dysarthric or aphasic. Pupils are reactive. Motor faustin she seems to move everything equally. I do not see any drift or leg lag. Her scalp treatment specialist are symmetrical. Toes withdraws. Cerebellar and gait cannot be assessed at this time. LABORATORY DATA Labs were reviewed. Currently, her white count is normalized to 11. Her hematocrit 34.4, MCV 100.4, platelets 278,000. Coag panel is unremarkable. Chemistries her potassium now is 4.1, glucose 183, AST 39, ALT 34. Her ammonia level was 16 on admission. Her lactic acid was also normal on admission. Her albumin is 2.1. Her B12 is 880. Toxicology benzodiazepine positive. MRSA was detected. IMAGING STUDIES Head CT was unremarkable on admission except for an old ischemia to the right basal ganglia. Chest x-ray yesterday showed persistent left lower lobe consolidation. Last EEG was done on 05/15 reported as normal. Echo was done on 05/15 and it shows an EF of 65-70%, grade 1 diastolic dysfunction. Trace mitral regurgitation, ___ tricuspid valve regurgitation as well. Moderate pulmonary hypertension. IMPRESSION A 71-year-old woman with ongoing encephalopathy, possible benzodiazepine abuse. Last EEG was normal. Certainly, it can be repeated tomorrow. CAT scan was unremarkable. I do not think she needs an MRI at this point in time. I will just keep her on the Seroquel as recommended by psychiatry for delirium. Keep on the CIWA protocol to avoid benzodiazepine withdrawal. I am not going to put her on any antiepileptic medication unless we do find that she is having seizures. I just do not want to add another medication to her regimen at this point in time. Depending on what the follow-up EEG shows further recommendations will be made as needed. MD KHANG Calixto/WILLIE /5:33 PM /7:05 PM
[2017-05-17] MEDS: QUEtiapine FUMARATE 25 MG TAB PO SCH (21:19)
[2017-05-17] MEDS ORDERED: ENALAPRILAT 1.25 MG/ML VIAL IV PUSH PRN (23:30)
[2017-05-17] MEDS: METOPROLOL TARTRATE 25 MG TAB PO SCH (23:49)
[2017-05-17] MEDS: ALPRAZolam 0.25 MG TAB PO PRN (23:50)
[2017-05-18] VITALS (8 sets, daily range): BP systolic 150–196; BP diastolic 77–105; PULSE 69–116; RESP 18–52; TEMP 97.6–98.3; O2SAT 72–100
[2017-05-18] MEDS: CHLORHEXIDINE GLUCONATE 2 % 1 PACK (2 CLOTHS) TOP SCH (03:51)
[2017-05-18] MEDS: PIPERACIL-TAZO 3.375 GM PREMIX 50 ML IV SCH ×4 (05:06→23:38)
--- NOTE | 2017-05-18 07:42 | RADRPT ---
EXAM DATE/TIME: 05/18/2017 07:03 [facility] COMPARISON: CHEST SINGLE AP, May 16, 2017, 4:59. INDICATIONS : Short of breath MEDICAL HISTORY : Carcinoma, breast. SURGICAL HISTORY : Mastectomy, left. Tubal ligation. gastric resection ENCOUNTER: Subsequent ACUITY: 1 week PAIN SCORE: Non-responsive. LOCATION: Bilateral buttock FINDINGS: The heart size is normal. There is linear density the left base. The left base appears better aerated on today's image. The right lung is clear. No effusion is seen. Clips are seen in the left axillary region and in the EG junction region. There is a fracture of the mid left clavicle. The bones are ost eopenic. Patient underwent for vertebroplasty at the upper lumbar spine. CONCLUSION: Persistent but improving left lower lobe atelectasis or consolidation. Jeffery Mcnally MD on May 18, 2017 at 7:39 Board Certified Radiologist. This report was verified electronically.
[2017-05-18] MEDS: CHLORHEXIDINE 0.12% (ORAL KIT) 15 ML CUP MT SCH ×2 (08:00→20:00)
[2017-05-18] MEDS: BENEPROTEIN POWDER 1 PACK G-TUBE SCH ×3 (09:00→18:00)
[2017-05-18] MEDS: RESP: ALBUTEROL 2.5 MG/IPRATROPIUM 0.5 MG NEB (SCH) NEB (09:36)
[2017-05-18] MEDS ORDERED: PHARMACY ORDERED LAB ONE (09:45)
[2017-05-18] MEDS: METOPROLOL TARTRATE 25 MG TAB PO SCH ×2 (09:46→21:45)
[2017-05-18] MEDS: methylPREDNISolone SOD SUCC 40 MG/1 ML VIAL IV SCH (09:46)
[2017-05-18] MEDS: MUPIROCIN 2% OINT 1 APPLIC/GM SYR NASAL SCH ×2 (09:46→21:45)
[2017-05-18] MEDS: PANTOPRAZOLE SODIUM 40 MG VIAL IV SCH (09:46)
[2017-05-18] MEDS: QUEtiapine FUMARATE 25 MG TAB PO SCH ×2 (09:46→21:45)
[2017-05-18] MEDS: BUDESONIDE-FORMOTEROL 160/4.5 MCG INHALER INH SCH ×2 (09:47→21:00)
[2017-05-18 11:36] LABS: AUTOMATED NEUTROPHIL # 8.8 TH/MM3 (1.8-7.7); BASOPHIL % 0.2 % (0.0-2.0); HEMATOCRIT 37.2 % (35.0-46.0); HEMO FLAGS DIFF FINAL; LYMPH % 7.2 % (9.0-44.0); LYMPHOCYTE # 0.8 TH/MM3 (1.0-4.8); MEAN CORPUSCULAR HEMOGLOBIN 34.3 PG (27.0-34.0); MEAN CORPUSCULAR HGB CONC 34.3 % (32.0-36.0); MONO % 11.6 % (0.0-8.0); PLATELET COUNT 319 TH/MM3 (150-450); RED BLOOD COUNT 3.72 MIL/MM3 (4.00-5.30); RED CELL DISTRIBUTION WIDTH 12.6 % (11.6-17.2); WHITE BLOOD COUNT 10.9 TH/MM3 (4.0-11.0)
--- NOTE | 2017-05-18 11:37 | HHI.PR ---
Subjective Remarks Follow-up for altered mental status and pneumonia Sitter is at the bedside. Per Sitter patient does move but does not sit or stand. Patient denies any shortness of breathing. When I asked her name she gave me the wrong name. When asked again she was corrected with her first and middle name. Patient seems to fluctuate with speech. She seems to was spurred then she would talk louder when I asked her to talk louder. Patient stated that she did not try to overdose. She stated that she took her benzos as directed. When I asked her how much she said 500 mg. Otherwise I was not able to get a good history from her. No acute events. Objective Vitals Vital Signs Date Time Temp Pulse Resp B/P Pulse Ox O2 Delivery O2 Flow Rate FiO2 05/18/17 08:00 98.2 82 18 165/94 96 05/18/17 04:00 98.0 78 18 156/77 97 05/18/17 00:01 93 37 196/84 97 05/18/17 00:00 116 52 95 05/18/17 00:00 98.3 69 18 165/96 72 05/17/17 23:01 79 28 169/79 96 05/17/17 23:00 81 31 97 05/17/17 22:07 93 42 159/90 93 05/17/17 22:00 98 31 171/136 98 05/17/17 22:00 98 05/17/17 21:50 99 Nasal Cannula 2.00 05/17/17 21:22 91 43 173/82 87 05/17/17 21:01 108 38 184/116 74 05/17/17 21:00 100 43 94 05/17/17 20:00 82 05/17/17 20:00 99.2 82 29 160/75 97 05/17/17 19:00 78 21 156/74 95 05/17/17 16:00 87 24 164/87 98 05/17/17 16:00 87 05/17/17 12:00 98.2 104 26 167/88 05/17/17 12:00 104 I/O 05/17/17 05/17/17 05/17/17 05/18/17 05/18/17 05/18/17 07:00 15:00 23:00 07:00 15:00 23:00 Intake Total 220 ml 495 ml 343 ml Output Total 1300 ml 950 ml 760 ml 400 ml Balance -1080 ml -455 ml -417 ml -400 ml Intake Oral 120 ml 240 ml IV Total 100 ml 255 ml 343 ml Output Urine Total 1300 ml 950 ml 760 ml 400 ml # Bowel Movements 4 1 1 Result Diagram: 05/16/1751905/16/17519 Objective Remarks GENERAL: Very thin female in NAD CARDIOVASCULAR: Regular rate and rhythm without murmurs, gallops, or rubs. RESPIRATORY: Breath sounds equal bilaterally. No accessory muscle use. GASTROINTESTINAL: Abdomen soft, non-tender, nondistended. MUSCULOSKELETAL: No cyanosis, or edema. BACK: Nontender without obvious deformity. No CVA tenderness. Medications and IVs Current Medications IV Flush 2 ml 2 ml UNSCH PRN IV FLUSH FLUSH AFTER USING IV ACCESS; Start at 07:30 Propofol (Diprivan 1000 Mg/100ml Inj) 100 ml @ As Directed STK-MED ONCE .ROUTE ; Start 05/11/17 at 07:51; Stop 05/11/17 at 07:52; Status DC Propofol 50 mg 50 mg ONCE ONCE IV Last administered on 05/11/17 07:57; Start 05/11/17 at 08:00; Stop 05/11/17 at 08:01; Status DC Propofol 100 ml @ 0 mls/hr TITRATE IV Last administered on 05/11/17 07:58; Start 05/11/17 at 08:00; Stop 05/11/17 at 09:50; Status DC Sodium Chloride 1,000 ml @ 999 mls/hr BOLUS ONCE IV Last administered on 05/11 09:10; Start 05/11/17 at 09:15; Stop 05/11/17 at 10:15; Status DC Sodium Chloride (NS 1000 ml Inj) 1,000 ml @ 150 mls/hr Q6H40M IV Last administered on 05/14/17 04:47; Start 05/11/17 at 10:00; Stop 05/14/17 at 12:12 ; Status DC Acetaminophen (Tylenol) 650 mg Q6H PRN PO PAIN 1-10 AND/OR FEVER >101F Last administered on 05/13/17 17:02; Start 05/11/17 at 09:45 Fentanyl Citrate (fentaNYL INJ) 50 mcg Q1H PRN IV SEE LABEL COMMENTS Last administered on 05/15/17 15:10; Start 05/11/17 at 09:45; Stop 05/16/17 at 11:44 ; Status DC Albuterol/ Ipratropium (Duoneb Neb) 1 ampule Q6HR NEB NEB Last administered on 05/18/17 09:36; Start 05/11/17 at 10:00 Albuterol/ Ipratropium (Duoneb Neb) 1 ampule Q4HR NEB PRN INH SHORTNESS OF BREATH; Start 05/11/17 at 09:45 Chlorhexidine Gluconate (Peridex 0.12% Liq) 15 ml BID@08,20 MT Last administered on 05/17/17 08:35; Start 05/11/17 at 20:00 Pantoprazole Sodium (Protonix Inj) 40 mg DAILY IV Last administered on 09:46; Start 05/12/17 at 09:00 Enoxaparin Sodium (Lovenox Inj) 30 mg Q24H SQ Last administered on 05/13/17 11 :31; Start 05/11/17 at 11:00; Status Hold Miscellaneous Information 1 Q361D XX ; Start 05/11/17 at 09:45 Chlorhexidine Gluconate (Chlorhexidine 2% Cloth) Taper DAILY@04 TOP Last administered on 05/17/17 04:00; Start 05/12/17 at 04:00; Stop 05/08/18 at 03:59 Chlorhexidine Gluconate 3 pack 3 pack UNSCH PRN TOP HYGIENIC CARE; Start at 09:45 Propofol 100 ml @ 0 mls/hr TITRATE IV Last administered on 05/14/17 04:52; Start 05/11/17 at 12:00; Stop 05/14/17 at 12:22; Status DC Piperacillin Sod/ Tazobactam Sod (Zosyn 3.375 Gm Premix) 50 ml @ 100 mls/hr Q6H IV Last administered on 05/18/17 05:06; Start 05/11/17 at 11:00 Iodixanol 50 ml 50 ml STK-MED ONCE IV Last administered on 05/11/17 11:45; Start 05/11/17 at 11:45; Stop 05/11/17 at 11:46; Status DC Potassium Chloride 100 ml @ 50 mls/hr Q2H PRN IV For Potassium 2.8 - 3.2 mEq/L ; Start 05/11/17 at 13:45; Stop 05/17/17 at 22:06; Status DC Potassium Chloride (KCl 20 Meq Premix Inj) 100 ml @ 50 mls/hr Q2H PRN IV For Potassium 2.8 - 3.2 mEq/L Last administered on 05/16/17t 01:00; Start 05/11/17 at 13:45; Stop 05/17/17 at 22:06; Status DC Potassium Bicarb/ Potassium Chloride 50 meq 50 meq UNSCH PRN PO For Potassium 3.3 - 3.5 mEq/L; Start 05/11/17 at 13:45; Stop 05/17/17 at 22:06; Status DC Potassium Chloride 100 ml @ 25 mls/hr UNSCH PRN IV For Potassium 3.3 - 3.5 mEq /L; Start 05/11/17 at 13:45; Stop 05/17/17 at 22:06; Status DC Potassium Chloride 100 ml @ 50 mls/hr Q2H PRN IV For Potassium 3.3 - 3.5 mEq/ L Last administered on 05/13/17t 07:56; Start 05/11/17 at 13:45; Stop 05/17/17 at 22:06; Status DC Magnesium Sulfate/ Sodium Chloride (Magnesium Sulfate Inj/NS Inj) 100 ml @ 50 mls/hr UNSCH PRN IV For Magnesium 0.9 - 1.1 mg/dL; Start 05/11/17 at 13:45; Stop 05/17/17 at 22:06; Status DC Magnesium Oxide 800 mg 800 mg UNSCH PRN PO For Magnesium 1.2 - 1.6 mg/dL; Start 05/11/17 at 13:45; Stop 05/17/17 at 22:06; Status DC Magnesium Sulfate/ Sodium Chloride (Magnesium Sulfate Inj/NS Inj) 100 ml @ 50 mls/hr UNSCH PRN IV For Magnesium 1.2 - 1.6 mg/dL; Start 05/11/17 at 13:45; Stop 05/17/17 at 22:06; Status DC Potassium Phosphate 2000 mg 2,000 mg Q4H PRN PO For Phosphorus < 2.5 mg/dL; Start 05/11/17 at 13:45; Stop 05/17/17 at 22:06; Status DC Sodium Phosphate/ Sodium Chloride (Sodium Phosphate Inj/NS 250 ml Inj) 250 ml @ 42 mls/hr UNSCH PRN IV For Phosphorus < 2.5 mg/dL; Start 05/11/17 at 13:45; Stop 05/17/17 at 22:06; Status DC Potassium Phosphate 2000 mg 2,000 mg UNSCH PRN PO/TUBE SEE LABEL COMMENTS; Start 05/11/17 at 13:45; Stop 05/17/17 at 22:06; Status DC Potassium Phosphate 30 mmol/ Sodium Chloride 260 ml @ 42 mls/hr UNSCH PRN IV SEE LABEL COMMENTS; Start 05/11/17 at 13:45; Stop 05/17/17 at 22:06; Status DC Vancomycin HCl 1000 mg/Sodium Chloride 250 ml @ 250 mls/hr ONCE ONCE IV Last administered on 05/11/17 16:02; Start 05/11/17 at 13:45; Stop 05/11/17 at 14:44 ; Status DC Sodium Chloride 1,000 ml @ 999 mls/hr BOLUS ONCE IV Last administered on 05/11 13:45; Start 05/11/17 at 13:45; Stop 05/11/17 at 14:45; Status DC Sodium Chloride 1,000 ml @ 999 mls/hr BOLUS ONCE IV Last administered on 05/11 13:45; Start 05/11/17 at 13:45; Stop 05/11/17 at 14:45; Status DC Levofloxacin/ Dextrose 150 ml @ 100 mls/hr Q48H IV Last administered on 14:06; Start 05/11/17 at 14:00; Stop 05/14/17 at 12:22; Status DC Calcium Gluconate/ Sodium Chloride (Calcium Gluconate Inj/NS Inj) 120 ml @ 120 mls/hr ONCE ONCE IV Last administered on 05/11/17 18:43; Start 05/11/17 at 18 :00; Stop 05/11/17 at 18:59; Status DC Mupirocin (Bactroban Nasal 2% Oint) 1 applic BID NASAL Last administered on 09:46; Start 05/12/17 at 09:00 Fentanyl Citrate (fentaNYL INJ) 100 mcg STK-MED ONCE .ROUTE ; Start 05/12/17 at 17:39; Stop 05/12/17 at 17:40; Status DC Iohexol (Omnipaque 350 Inj) 70 ml STK-MED ONCE OTHER Last administered on 11:34; Start 05/14/17 at 11:34; Stop 05/14/17 at 11:35; Status DC Furosemide (Lasix Inj) 40 mg ONCE ONCE IV PUSH Last administered on 05/14/17 12:58; Start 05/14/17 at 12:15; Stop 05/14/17 at 12:33; Status DC Potassium Bicarb/ Potassium Chloride 25 meq 25 meq ONCE ONCE PO Last administered on 05/14/17 13:00; Start 05/14/17 at 12:15; Stop 05/14/17 at 12:33 ; Status DC Fentanyl Citrate 250 ml @ 0 mls/hr TITRATE IV Last administered on 05/15/17 21 :04; Start 05/14/17 at 18:00; Stop 05/16/17 at 11:44; Status DC Vancomycin HCl 1000 mg/Sodium Chloride 250 ml @ 250 mls/hr ONCE ONCE IV Last administered on 05/15/17 10:15; Start 05/15/17 at 10:00; Stop 05/15/17 at 10:59 ; Status DC Pharmacy Profile Note (Vancomycin Consult Pharmacy) 0 ml @ 0 mls/hr UNSCH OTHER ; Start 05/15/17 at 10:00 Protein 1 pack 1 pack TID G-TUBE Last administered on 05/16/17 13:00; Start at 13:00 Vancomycin HCl/ Sodium Chloride (Vancomycin Inj/ NS 250 ml Inj) 250 ml @ 250 mls/hr Q12H IV Last administered on 05/17/17 23:13; Start 05/15/17 at 22:00 Miscellaneous Information SPECIFIC LAB TO BE DRAWN:VANCOMYCIN TROUGH DATE TO... ONCE ONCE .XX ; Start 05/17/17 at 09:45; Stop 05/17/17 at 09:46; Status DC Propofol (Diprivan 1000 Mg/100ml Inj) 100 ml @ As Directed STK-MED ONCE .ROUTE Last administered on 05/15/17 17:49; Start 05/15/17 at 17:49; Stop 05/15/17 at 17:50; Status DC Methylprednisolone Sodium Succinate 40 mg 40 mg BID IV Last administered on 09:46; Start 05/15/17 at 21:00 Propofol (Diprivan 1000 Mg/100ml Inj) 100 ml @ 0 mls/hr TITRATE IV Last administered on 05/16/17 08:46; Start 05/15/17 at 23:30; Stop 05/16/17 at 11:44 ; Status DC Furosemide (Lasix Inj) 40 mg STK-MED ONCE .ROUTE ; Start 05/16/17 at 09:11; Stop 05/16/17 at 09:12; Status DC Furosemide (Lasix Inj) 40 mg ONCE ONCE IV Last administered on 05/16/17 11:15 ; Start 05/16/17 at 11:15; Stop 05/16/17 at 11:16; Status DC Budesonide/ Formoterol Fumarate (Symbicort 160-4.5 Inh) 1 puff Q12HR INH Last administered on 05/18/17 09:47; Start 05/16/17 at 14:00 Miscellaneous Information SPECIFIC LAB TO BE DRAWN:VANCOMYCIN TROUGH DATE TO... ONCE ONCE .XX Last administered on 05/18/17 10:01; Start 05/18/17 at 09:45; Stop 05/18/17 at 09:46; Status DC Quetiapine Fumarate (SEROquel) 25 mg BID PO Last administered on 05/18/17 09: 46; Start 05/17/17 at 21:00 Alprazolam (Xanax) 0.25 mg Q8H PRN PO ANXIETY Last administered on 05/17/17 23 :50; Start 05/17/17 at 19:00 Metoprolol Tartrate (Lopressor) 12.5 mg Q12HR PO Last administered on 09:46; Start 05/17/17 at 23:30 Enalaprilat (Vasotec Inj) 1.25 mg Q6H PRN IV PUSH SBP >165; Start 05/17/17 at 23:30 A/P Problem List: (1) Acute encephalopathy ICD Code: G93.40 Status: Acute (2) Acute respiratory failure ICD Code: J96.00 Status: Acute (3) Severe sepsis ICD Code: A41.9 Status: Acute (4) Acute kidney injury ICD Code: N17.9 Status: Acute (5) Acute hyperkalemia ICD Code: E87.5 Status: Acute (6) Probable pneumonia Status: Acute (7) Probable CBD obstruction Status: Acute (8) Leukocytosis ICD Code: D72.829 Status: Acute (9) Rhabdomyolysis ICD Code: M62.82 Status: Acute (10) Dehydration ICD Code: E86.0 Status: Acute (11) Hyponatremia ICD Code: E87.1 Status: Acute Assessment and Plan Acute toxic metabolic encephalopathy Probable benzodiazepine overdose Probable prescription drug abuse - Altered mentation most likely from benzodiazepine overdose,and sepsis. - Ct head negative for acute findings. Encephalopathy improving. She seems she might have a psych issue. - Psych consulted and was not able to evaluate her. They stated they will reevaluate her. - B12, TSH Ammonia normal - EEG normal Acute respiratory failure-resolved Bilateral pneumonia/aspiration (MRSA, serratia) Tobacco abuse, possible COPD - Extubated 05/16, tolerating well. DuoNeb scheduled and when necessary - CT chest shows mild bilateral infiltrates pneumonia versus aspiration - Continue broad-spectrum with Rocephin and vancomycin -Being followed by [employer] house [employer]. MRCP shows probable distal CBD stones - PTHC unsuccessful, no further procedures planned by GI IR at this time - CT abdomen pelvis shows dilated biliary tree, dilated main pancreatic duct, and dilated gallbladder suggestive of distal gallbladder obstruction - MRCP with probable distal CBD stones - Gastroenterology unable to complete ERCP, remains to find ampulla due to surgical changes - IV pantoprazole, bowel regimen - Diet regular per speech rec Acute kidney injury- secondary to dehydration Rhabdomyolysis Hypokalemia - Monitor renal function , I/O's, electrolytes replacement per protocol. - Bumex 2 mg IV x1 given 05/14, given 40 mg Lasix 05/15 and 05/16 - Electrolyte replacement per protocol Severe sepsis Pre hospital aspiration pneumonitis versus pneumonia (MRSA, serratia) Probable common biliary duct obstruction - Currently on Rocephin for Serratia and continue vancomycin for MRSA - DCd Levaquin 05/14 - Urine for Legionella and pneumococcal antigen neg - Sputum cx 05/13 MRSA and Serratia DVT prophylaxis Bilateral lower extremity SCDs. SQ Lovenox, Protonix Problem Qualifiers (1) Leukocytosis: Qualified Code: D72.829 - Leukocytosis, unspecified type (2) Rhabdomyolysis: Van,Karissa Malena MD May 18, 2017 11:37
[2017-05-18] MEDS: VANCOMYCIN 1,000 MG/NS 250 ML IV SCH ×4 (11:42→21:46)
[2017-05-18 12:01] LABS: ALKALINE PHOSPHATASE 79 U/L (45-117); ALT (GPT) 42 U/L (10-53); ANION GAP 11 MEQ/L (5-15); AST (GOT) 44 U/L (15-37); BICARBONATE 33.5 MEQ/L (21.0-32.0); BLOOD UREA NITROGEN 20 MG/DL (7-18); CHLORIDE 97 MEQ/L (98-107); GLOMERULAR FILTRATION RATE 117 ML/MIN (>89); SODIUM (NA) 141 MEQ/L (136-145); TOTAL BILIRUBIN ADULT 0.6 MG/DL (0.2-1.0)
[2017-05-18 12:17] LABS: POTASSIUM 2.6 MEQ/L (3.5-5.1)
[2017-05-18] MEDS ORDERED: POTASSIUM CHLORIDE 20 MEQ CONTROLLED RELEASE TAB PO ONE (13:15)
[2017-05-18] MEDS: POTASSIUM CHLOR 10 MEQ PREMIX 100 ML IV SCH ×3 (15:45→18:15)
--- NOTE | 2017-05-18 19:42 | HHI.PR ---
Subjective Remarks Extubated and on O2 at 4L.Breathing is better.Still agitated . Has H/O Valium use . CXR shows a Left lower lobe infiltrate. Objective Vital Signs Date Time Temp Pulse Resp B/P Pulse Ox O2 Delivery O2 Flow Rate FiO2 05/18/17 16:37 98.1 96 18 163/105 95 05/18/17 12:00 98.2 80 18 173/83 97 05/18/17 09:36 99 Nasal Cannula 3.00 05/18/17 08:00 98.2 82 18 165/94 96 05/18/17 04:00 98.0 78 18 156/77 97 05/18/17 00:01 93 37 196/84 97 05/18/17 00:00 116 52 95 05/18/17 00:00 98.3 69 18 165/96 72 05/17/17 23:01 79 28 169/79 96 05/17/17 23:00 81 31 97 05/17/17 22:07 93 42 159/90 93 05/17/17 22:00 98 31 171/136 98 05/17/17 22:00 98 05/17/17 21:50 99 Nasal Cannula 2.00 05/17/17 21:22 91 43 173/82 87 05/17/17 21:01 108 38 184/116 74 05/17/17 21:00 100 43 94 05/17/17 20:00 82 05/17/17 20:00 99.2 82 29 160/75 97 I/O 05/17/17 05/17/17 05/17/17 05/18/17 05/18/17 05/18/17 06:59 14:59 22:59 06:59 14:59 22:59 Intake Total 220 ml 495 ml 343 ml 200 ml Output Total 1300 ml 950 ml 760 ml 1050 ml Balance -1080 ml -455 ml -417 ml -850 ml Intake Oral 120 ml 240 ml 200 ml IV Total 100 ml 255 ml 343 ml Output Urine Total 1300 ml 950 ml 760 ml 1050 ml # Bowel Movements 4 1 1 2 Result Diagram: 05/18/17 1044 05/18/17 1044 Objective Remarks GENERAL: This is a thinly built elderly lady on O2 and agitated and confused HEENT: Head normocephalic. Pupils reactive. Sclerae are clear. Tongue is moist. Throat clear NECK: Supple without venous distension or thyromegaly. CHEST: Distant breath sounds with occasional wheezes in the upper lung mccabe. Occ basal crackles. HEART: The heart sounds are regular S1-S2. No murmur. ABDOMEN: Soft and protuberant without masses. No organomegaly or tenderness. Bowel sounds are active. EXTREMITIES: Moves all. No edema. NEUROLOGIC: Reflexes 1+. Seems confused and agitated SKIN: Dry and cool. Assessment and Plan Assessment and Plan IMPRESSION 1. Acute respiratory failure resolving. 2. Hypoxic encephalopathy, resolving. 3. Aspiration pneumonia 4. COPD with emphysema 5. History of breast cancer 6. Probable bile duct obstruction. 7. Psychosis/ Encephalopathy 8. MRSA pneumonia Plan : 1. Wean o2 to 2 L. 2. Nebs qid , duoneb. 3. Cont Antibiotics as ordered. 4. D/C Solumedrol 5. Add Seroquel 25 mg bid 6. Soft diet. 7. Add Xanax .25 mg tid prn 8. Add Prednisone 10 mg bid 9. CBC,BMP , in am Rosalia Nelson MD May 18, 2017 19:42
[2017-05-18] MEDS: predniSONE 10 MG TAB PO SCH (21:45)
[2017-05-19] MEDS: CHLORHEXIDINE GLUCONATE 2 % 1 PACK (2 CLOTHS) TOP SCH (04:00)
[2017-05-19 04:57] VITALS: BP 160/68; PULSE 65; RESP 18; TEMP 97.9; O2SAT 100
[2017-05-19] MEDS: PIPERACIL-TAZO 3.375 GM PREMIX 50 ML IV SCH ×4 (06:06→22:08)
[2017-05-19 06:48] VITALS: O2SAT 99
[2017-05-19 08:00] VITALS: BP 162/78; PULSE 70; PULSE 88; RESP 18; TEMP 98.1; O2SAT 96
[2017-05-19] MEDS: CHLORHEXIDINE 0.12% (ORAL KIT) 15 ML CUP MT SCH ×2 (08:00→20:00)
[2017-05-19 08:53] LABS: HEMATOCRIT 39.2 % (35.0-46.0); MEAN CELL VOLUME 99.6 FL (80.0-100.0); MEAN CORPUSCULAR HEMOGLOBIN 34.3 PG (27.0-34.0); MEAN CORPUSCULAR HGB CONC 34.4 % (32.0-36.0); PLATELET COUNT 394 TH/MM3 (150-450); RED BLOOD COUNT 3.93 MIL/MM3 (4.00-5.30); RED CELL DISTRIBUTION WIDTH 12.8 % (11.6-17.2); REVIEW FLAG FINAL; WHITE BLOOD COUNT 14.7 TH/MM3 (4.0-11.0)
[2017-05-19] MEDS: BENEPROTEIN POWDER 1 PACK G-TUBE SCH ×3 (09:00→18:00)
[2017-05-19] MEDS: BUDESONIDE-FORMOTEROL 160/4.5 MCG INHALER INH SCH ×2 (09:00→21:00)
[2017-05-19 09:17] LABS: BICARBONATE 34.4 MEQ/L (21.0-32.0)
[2017-05-19 09:23] LABS: POTASSIUM 2.4 MEQ/L (3.5-5.1)
[2017-05-19] MEDS: predniSONE 10 MG TAB PO SCH ×2 (10:27→22:08)
[2017-05-19] MEDS: METOPROLOL TARTRATE 25 MG TAB PO SCH ×2 (10:27→22:08)
[2017-05-19] MEDS: QUEtiapine FUMARATE 25 MG TAB PO SCH ×2 (10:27→22:08)
[2017-05-19] MEDS: MUPIROCIN 2% OINT 1 APPLIC/GM SYR NASAL SCH ×2 (10:28→22:08)
[2017-05-19] MEDS: PANTOPRAZOLE SODIUM 40 MG VIAL IV SCH (10:35)
[2017-05-19] MEDS: VANCOMYCIN 1,000 MG/NS 250 ML IV SCH ×4 (10:38→22:07)
[2017-05-19 12:00] VITALS: BP 176/85; PULSE 86; RESP 20; TEMP 99.4; O2SAT 96
[2017-05-19] MEDS ORDERED: POTASSIUM CHLORIDE 25 MEQ EFFERVESCENT TAB PO ONE ×2 (13:00→23:30)
[2017-05-19] MEDS ORDERED: LISINOPRIL 10 MG TAB PO SCH (13:15)
[2017-05-19] MEDS: POTASSIUM CHLOR 10 MEQ PREMIX 100 ML IV SCH ×4 (13:45→16:25)
--- NOTE | 2017-05-19 14:56 | HHI.PR ---
Subjective Remarks Follow-up for altered mental status and pneumonia Patient continues to be altered. She's thinks that she is in a bakery doing some hand gesture. She is able to give me her first and last name. Otherwise she is not oriented. Denies any shortness of breathing or cough. Her sitter at the bedside stated that she does eat some food but not a lot. Her daughter who lives in [place] is at the bedside. Per patient's daughter she does have depression and anxiety. She has never had psychosis before, but she has not seen her mom in 3 years. Her daughter works in the medical field. Objective Vitals Vital Signs Date Time Temp Pulse Resp B/P Pulse Ox O2 Delivery O2 Flow Rate FiO2 05/19/17 12:00 99.4 86 20 176/85 96 05/19/17 08:00 98.1 70 18 162/78 96 05/19/17 06:48 99 Nasal Cannula 3.00 05/19/17 04:57 97.9 65 18 160/68 100 05/18/17 20:32 97.8 99 19 190/92 100 05/18/17 16:37 98.1 96 18 163/105 95 I/O 05/18/17 05/18/17 05/18/17 05/19/17 05/19/17 05/19/17 06:59 14:59 22:59 06:59 14:59 22:59 Intake Total 343 ml 200 ml Output Total 760 ml 1050 ml 400 ml Balance -417 ml -850 ml -400 ml Intake Oral 200 ml IV Total 343 ml Output Urine Total 760 ml 1050 ml 400 ml # Voids 2 # Bowel Movements 1 2 1 Result Diagram: 05/19/17 0805/19/17 0805 Objective Remarks GENERAL: Very thin female in NAD CARDIOVASCULAR: Regular rate and rhythm without murmurs, gallops, or rubs. RESPIRATORY: Breath sounds equal bilaterally. No accessory muscle use. GASTROINTESTINAL: Abdomen soft, non-tender, nondistended. MUSCULOSKELETAL: No cyanosis, or edema. BACK: Nontender without obvious deformity. No CVA tenderness. Medications and IVs Current Medications IV Flush 2 ml 2 ml UNSCH PRN IV FLUSH FLUSH AFTER USING IV ACCESS; Start at 07:30 Propofol (Diprivan 1000 Mg/100ml Inj) 100 ml @ As Directed STK-MED ONCE .ROUTE ; Start 05/11/17 at 07:51; Stop 05/11/17 at 07:52; Status DC Propofol 50 mg 50 mg ONCE ONCE IV Last administered on 05/11/17 07:57; Start 05/11/17 at 08:00; Stop 05/11/17 at 08:01; Status DC Propofol 100 ml @ 0 mls/hr TITRATE IV Last administered on 05/11/17 07:58; Start 05/11/17 at 08:00; Stop 05/11/17 at 09:50; Status DC Sodium Chloride 1,000 ml @ 999 mls/hr BOLUS ONCE IV Last administered on 05/11 09:10; Start 05/11/17 at 09:15; Stop 05/11/17 at 10:15; Status DC Sodium Chloride (NS 1000 ml Inj) 1,000 ml @ 150 mls/hr Q6H40M IV Last administered on 05/14/17 04:47; Start 05/11/17 at 10:00; Stop 05/14/17 at 12:12 ; Status DC Acetaminophen (Tylenol) 650 mg Q6H PRN PO PAIN 1-10 AND/OR FEVER >101F Last administered on 05/13/17 17:02; Start 05/11/17 at 09:45 Fentanyl Citrate (fentaNYL INJ) 50 mcg Q1H PRN IV SEE LABEL COMMENTS Last administered on 05/15/17 15:10; Start 05/11/17 at 09:45; Stop 05/16/17 at 11:44 ; Status DC Albuterol/ Ipratropium (Duoneb Neb) 1 ampule Q6HR NEB NEB Last administered on 05/18/17 09:36; Start 05/11/17 at 10:00; Stop 05/18/17 at 12:18; Status DC Albuterol/ Ipratropium (Duoneb Neb) 1 ampule Q4HR NEB PRN INH SHORTNESS OF BREATH; Start 05/11/17 at 09:45 Chlorhexidine Gluconate (Peridex 0.12% Liq) 15 ml BID@08,20 MT Last administered on 05/19/17 08:00; Start 05/11/17 at 20:00 Pantoprazole Sodium (Protonix Inj) 40 mg DAILY IV Last administered on 10:35; Start 05/12/17 at 09:00 Enoxaparin Sodium (Lovenox Inj) 30 mg Q24H SQ Last administered on 05/13/17 11 :31; Start 05/11/17 at 11:00; Status Hold Miscellaneous Information 1 [id number] XX ; Start 05/11/17 at 09:45 Chlorhexidine Gluconate (Chlorhexidine 2% Cloth) Taper DAILY@04 TOP Last administered on 05/17/17 04:00; Start 05/12/17 at 04:00; Stop 05/08/18 at 03:59 Chlorhexidine Gluconate 3 pack 3 pack UNSCH PRN TOP HYGIENIC CARE; Start at 09:45 Propofol 100 ml @ 0 mls/hr TITRATE IV Last administered on 05/14/17 04:52; Start 05/11/17 at 12:00; Stop 05/14/17 at 12:22; Status DC Piperacillin Sod/ Tazobactam Sod (Zosyn 3.375 Gm Premix) 50 ml @ 100 mls/hr Q6H IV Last administered on 05/19/17 13:45; Start 05/11/17 at 11:00 Iodixanol 50 ml 50 ml STK-MED ONCE IV Last administered on 05/11/17 11:45; Start 05/11/17 at 11:45; Stop 05/11/17 at 11:46; Status DC Potassium Chloride 100 ml @ 50 mls/hr Q2H PRN IV For Potassium 2.8 - 3.2 mEq/L ; Start 05/11/17 at 13:45; Stop 05/17/17 at 22:06; Status DC Potassium Chloride (KCl 20 Meq Premix Inj) 100 ml @ 50 mls/hr Q2H PRN IV For Potassium 2.8 - 3.2 mEq/L Last administered on 05/16/17 01:00; Start 05/11/17 at 13:45; Stop 05/17/17 at 22:06; Status DC Potassium Bicarb/ Potassium Chloride 50 meq 50 meq UNSCH PRN PO For Potassium 3.3 - 3.5 mEq/L; Start 05/11/17 at 13:45; Stop 05/17/17 at 22:06; Status DC Potassium Chloride 100 ml @ 25 mls/hr UNSCH PRN IV For Potassium 3.3 - 3.5 mEq /L; Start 05/11/17 at 13:45; Stop 05/17/17 at 22:06; Status DC Potassium Chloride 100 ml @ 50 mls/hr Q2H PRN IV For Potassium 3.3 - 3.5 mEq/ L Last administered on 05/13/17t 07:56; Start 05/11/17 at 13:45; Stop 05/17/17 at 22:06; Status DC Magnesium Sulfate/ Sodium Chloride (Magnesium Sulfate Inj/NS Inj) 100 ml @ 50 mls/hr UNSCH PRN IV For Magnesium 0.9 - 1.1 mg/dL; Start 05/11/17 at 13:45; Stop 05/17/17 at 22:06; Status DC Magnesium Oxide 800 mg 800 mg UNSCH PRN PO For Magnesium 1.2 - 1.6 mg/dL; Start 05/11/17 at 13:45; Stop 05/17/17 at 22:06; Status DC Magnesium Sulfate/ Sodium Chloride (Magnesium Sulfate Inj/NS Inj) 100 ml @ 50 mls/hr UNSCH PRN IV For Magnesium 1.2 - 1.6 mg/dL; Start 05/11/17 at 13:45; Stop 05/17/17 at 22:06; Status DC Potassium Phosphate 2000 mg 2,000 mg Q4H PRN PO For Phosphorus < 2.5 mg/dL; Start 05/11/17 at 13:45; Stop 05/17/17 at 22:06; Status DC Sodium Phosphate/ Sodium Chloride (Sodium Phosphate Inj/NS 250 ml Inj) 250 ml @ 42 mls/hr UNSCH PRN IV For Phosphorus < 2.5 mg/dL; Start 05/11/17 at 13:45; Stop 05/17/17 at 22:06; Status DC Potassium Phosphate 2000 mg 2,000 mg UNSCH PRN PO/TUBE SEE LABEL COMMENTS; Start 05/11/17 at 13:45; Stop 05/17/17 at 22:06; Status DC Potassium Phosphate 30 mmol/ Sodium Chloride 260 ml @ 42 mls/hr UNSCH PRN IV SEE LABEL COMMENTS; Start 05/11/17 at 13:45; Stop 05/17/17 at 22:06; Status DC Vancomycin HCl 1000 mg/Sodium Chloride 250 ml @ 250 mls/hr ONCE ONCE IV Last administered on 05/11/17 16:02; Start 05/11/17 at 13:45; Stop 05/11/17 at 14:44 ; Status DC Sodium Chloride 1,000 ml @ 999 mls/hr BOLUS ONCE IV Last administered on 05/11 13:45; Start 05/11/17 at 13:45; Stop 05/11/17 at 14:45; Status DC Sodium Chloride 1,000 ml @ 999 mls/hr BOLUS ONCE IV Last administered on 05/11 13:45; Start 05/11/17 at 13:45; Stop 05/11/17 at 14:45; Status DC Levofloxacin/ Dextrose 150 ml @ 100 mls/hr Q48H IV Last administered on 14:06; Start 05/11/17 at 14:00; Stop 05/14/17 at 12:22; Status DC Calcium Gluconate/ Sodium Chloride (Calcium Gluconate Inj/NS Inj) 120 ml @ 120 mls/hr ONCE ONCE IV Last administered on 05/11/17 18:43; Start 05/11/17 at 18 :00; Stop 05/11/17 at 18:59; Status DC Mupirocin (Bactroban Nasal 2% Oint) 1 applic BID NASAL Last administered on 10:28; Start 05/12/17 at 09:00 Fentanyl Citrate (fentaNYL INJ) 100 mcg STK-MED ONCE .ROUTE ; Start 05/12/17 at 17:39; Stop 05/12/17 at 17:40; Status DC Iohexol (Omnipaque 350 Inj) 70 ml STK-MED ONCE OTHER Last administered on 11:34; Start 05/14/17 at 11:34; Stop 05/14/17 at 11:35; Status DC Furosemide (Lasix Inj) 40 mg ONCE ONCE IV PUSH Last administered on 05/14/17 12:58; Start 05/14/17 at 12:15; Stop 05/14/17 at 12:33; Status DC Potassium Bicarb/ Potassium Chloride 25 meq 25 meq ONCE ONCE PO Last administered on 05/14/17 13:00; Start 05/14/17 at 12:15; Stop 05/14/17 at 12:33 ; Status DC Fentanyl Citrate 250 ml @ 0 mls/hr TITRATE IV Last administered on 05/15/17 21 :04; Start 05/14/17 at 18:00; Stop 05/16/17 at 11:44; Status DC Vancomycin HCl 1000 mg/Sodium Chloride 250 ml @ 250 mls/hr ONCE ONCE IV Last administered on 05/15/17 10:15; Start 05/15/17 at 10:00; Stop 05/15/17 at 10:59 ; Status DC Pharmacy Profile Note (Vancomycin Consult Pharmacy) 0 ml @ 0 mls/hr UNSCH OTHER ; Start 05/15/17 at 10:00 Protein 1 pack 1 pack TID G-TUBE Last administered on 05/19/17 09:00; Start at 13:00 Vancomycin HCl/ Sodium Chloride (Vancomycin Inj/ NS 250 ml Inj) 250 ml @ 250 mls/hr Q12H IV Last administered on 05/19/17 10:38; Start 05/15/17 at 22:00 Miscellaneous Information SPECIFIC LAB TO BE DRAWN:VANCOMYCIN TROUGH DATE TO... ONCE ONCE .XX ; Start 05/17/17 at 09:45; Stop 05/17/17 at 09:46; Status DC Propofol (Diprivan 1000 Mg/100ml Inj) 100 ml @ As Directed STK-MED ONCE .ROUTE Last administered on 05/15/17 17:49; Start 05/15/17 at 17:49; Stop 05/15/17 at 17:50; Status DC Methylprednisolone Sodium Succinate 40 mg 40 mg BID IV Last administered on 09:46; Start 05/15/17 at 21:00; Stop 05/18/17 at 19:43; Status DC Propofol (Diprivan 1000 Mg/100ml Inj) 100 ml @ 0 mls/hr TITRATE IV Last administered on 05/16/17 08:46; Start 05/15/17 at 23:30; Stop 05/16/17 at 11:44 ; Status DC Furosemide (Lasix Inj) 40 mg STK-MED ONCE .ROUTE ; Start 05/16/17 at 09:11; Stop 05/16/17 at 09:12; Status DC Furosemide (Lasix Inj) 40 mg ONCE ONCE IV Last administered on 05/16/17 11:15 ; Start 05/16/17 at 11:15; Stop 05/16/17 at 11:16; Status DC Budesonide/ Formoterol Fumarate (Symbicort 160-4.5 Inh) 1 puff Q12HR INH Last administered on 05/18/17 09:47; Start 05/16/17 at 14:00 Miscellaneous Information SPECIFIC LAB TO BE DRAWN:VANCOMYCIN TROUGH DATE TO... ONCE ONCE .XX Last administered on 05/18/17 10:01; Start 05/18/17 at 09:45; Stop 05/18/17 at 09:46; Status DC Quetiapine Fumarate (SEROquel) 25 mg BID PO Last administered on 05/19/17 10: 27; Start 05/17/17 at 21:00 Alprazolam (Xanax) 0.25 mg Q8H PRN PO ANXIETY Last administered on 05/17/17 23 :50; Start 05/17/17 at 19:00 Metoprolol Tartrate (Lopressor) 12.5 mg Q12HR PO Last administered on 10:27; Start 05/17/17 at 23:30 Enalaprilat 1.25 mg 1.25 mg Q6H PRN IV PUSH SBP >165; Start 05/17/17 at 23:30 Potassium Chloride (KCl 10 Meq Premix Inj) 100 ml @ 100 mls/hr Q1H IV Last administered on 05/18/17 18:15; Start 05/18/17 at 14:00; Stop 05/18/17 at 16:59 ; Status DC Potassium Chloride (KCl) 20 meq ONCE ONCE PO Last administered on 05/18/17 15 :44; Start 05/18/17 at 13:15; Stop 05/18/17 at 13:37; Status DC Prednisone 10 mg 10 mg BID PO Last administered on 05/19/17 10:27; Start 05/18 at 21:00 Potassium Chloride (KCl 10 Meq Premix Inj) 100 ml @ 100 mls/hr Q1H IV Last administered on 05/19/17 13:45; Start 05/19/17 at 13:00; Stop 05/19/17 at 15:59 Potassium Bicarb/ Potassium Chloride (K-Lyte Cl Eff) 50 meq ONCE ONCE PO ; Start 05/19/17 at 13:00; Stop 8/19/17 at 13:01; Status DC Lisinopril (Prinivil) 10 mg DAILY PO ; Start 05/19/17 at 13:15 Enalaprilat (Vasotec Inj) 2.5 mg Q6H PRN IV PUSH SBP>180 or DBP> 100; Start at 13:15 A/P Problem List: (1) Acute encephalopathy ICD Code: G93.40 Status: Acute (2) Acute respiratory failure ICD Code: J96.00 Status: Acute (3) Severe sepsis ICD Code: A41.9 Status: Acute (4) Acute kidney injury ICD Code: N17.9 Status: Acute (5) Acute hyperkalemia ICD Code: E87.5 Status: Acute (6) Probable pneumonia Status: Acute (7) Probable CBD obstruction Status: Acute (8) Leukocytosis ICD Code: D72.829 Status: Acute (9) Rhabdomyolysis ICD Code: M62.82 Status: Acute (10) Dehydration ICD Code: E86.0 Status: Acute (11) Hyponatremia ICD Code: E87.1 Status: Acute Assessment and Plan Acute toxic metabolic encephalopathy Probable benzodiazepine overdose Probable prescription drug abuse - Altered mentation most likely from benzodiazepine overdose,and sepsis. - Ct head negative for acute findings. Encephalopathy improving. She seems she might have a psych issue. - Psych consulted and was not able to evaluate her. They stated they will reevaluate her. - B12, TSH Ammonia normal - EEG normal Acute respiratory failure-resolved Bilateral pneumonia/aspiration (MRSA, serratia) Tobacco abuse, possible COPD - Extubated 05/16, tolerating well. DuoNeb scheduled and when necessary - CT chest shows mild bilateral infiltrates pneumonia versus aspiration - Continue broad-spectrum with Rocephin and vancomycin -Being followed by video network engineer. Hypertension -Continues to be uncontrolled. -Metoprolol. Will add lisinopril. MRCP shows probable distal CBD stones - PTHC unsuccessful, no further procedures planned by GI IR at this time - CT abdomen pelvis shows dilated biliary tree, dilated main pancreatic duct, and dilated gallbladder suggestive of distal gallbladder obstruction - MRCP with probable distal CBD stones - Gastroenterology unable to complete ERCP, remains to find ampulla due to surgical changes - IV pantoprazole, bowel regimen - Diet regular per speech rec Acute kidney injury- secondary to dehydration Rhabdomyolysis Hypokalemia - Monitor renal function , I/O's, electrolytes replacement per protocol. - Bumex 2 mg IV x1 given 05/14, given 40 mg Lasix 05/15 and 05/16 - Magnesium is normal. Potassium today is 2.4. Will give IV potassium and oral potassium. Will recheck potassium. Continue to monitor over telemetry. Severe sepsis Pre hospital aspiration pneumonitis versus pneumonia (MRSA, serratia) Probable common biliary duct obstruction - Currently on Rocephin for Serratia and continue vancomycin for MRSA - DCd Levaquin 05/14 - Urine for Legionella and pneumococcal antigen neg - Sputum cx 05/13 MRSA and Serratia DVT prophylaxis Bilateral lower extremity SCDs. SQ Lovenox, Protonix Dealt with daughter who is in the medical filled extensively on management. She is asking to fill FMLA forms. I told daughter to bring forms in tomorrow. Discharge Planning Patient continues to be altered so requires continual hospitalization. Problem Qualifiers (1) Leukocytosis: Qualified Code: D72.829 - Leukocytosis, unspecified type (2) Rhabdomyolysis: Karissa Coughlin MD May 19, 2017 14:56
[2017-05-19 16:00] VITALS: BP 162/91; PULSE 83; RESP 18; TEMP 97.9; O2SAT 96
[2017-05-19 21:21] VITALS: BP 154/89; PULSE 92; RESP 20; TEMP 98.6; O2SAT 100
[2017-05-19] MEDS: ALPRAZolam 0.25 MG TAB PO PRN (22:09)
[2017-05-19] MEDS: POTASSIUM CHLOR 20 MEQ PREMIX 100 ML IV SCH (23:55)
[2017-05-20] VITALS (7 sets, daily range): BP systolic 132–173; BP diastolic 65–95; PULSE 76–91; RESP 19–22; TEMP 97.7–98.3; O2SAT 82–100
[2017-05-20] MEDS: POTASSIUM CHLOR 20 MEQ PREMIX 100 ML IV SCH (02:00)
[2017-05-20] MEDS: CHLORHEXIDINE GLUCONATE 2 % 1 PACK (2 CLOTHS) TOP SCH (04:00)
[2017-05-20] MEDS: PIPERACIL-TAZO 3.375 GM PREMIX 50 ML IV SCH ×4 (05:08→23:49)
[2017-05-20 05:13] LABS: HEMATOCRIT 37.4 % (35.0-46.0); MEAN CORPUSCULAR HEMOGLOBIN 33.5 PG (27.0-34.0); MEAN CORPUSCULAR HGB CONC 33.5 % (32.0-36.0); PLATELET COUNT 395 TH/MM3 (150-450); RED BLOOD COUNT 3.74 MIL/MM3 (4.00-5.30); RED CELL DISTRIBUTION WIDTH 12.8 % (11.6-17.2); REVIEW FLAG FINAL; WHITE BLOOD COUNT 14.1 TH/MM3 (4.0-11.0)
[2017-05-20 05:23] LABS: BICARBONATE 30.7 MEQ/L (21.0-32.0); POTASSIUM 3.5 MEQ/L (3.5-5.1)
[2017-05-20] MEDS: CHLORHEXIDINE 0.12% (ORAL KIT) 15 ML CUP MT SCH ×2 (08:00→20:00)
[2017-05-20] MEDS: PANTOPRAZOLE SODIUM 40 MG VIAL IV SCH (09:00)
[2017-05-20] MEDS: METOPROLOL TARTRATE 25 MG TAB PO SCH ×2 (09:00→23:38)
[2017-05-20] MEDS: MUPIROCIN 2% OINT 1 APPLIC/GM SYR NASAL SCH ×2 (09:00→23:37)
[2017-05-20] MEDS: BENEPROTEIN POWDER 1 PACK G-TUBE SCH ×3 (09:00→18:00)
[2017-05-20] MEDS: BUDESONIDE-FORMOTEROL 160/4.5 MCG INHALER INH SCH ×2 (09:00→21:00)
[2017-05-20] MEDS: predniSONE 10 MG TAB PO SCH ×2 (09:00→23:37)
[2017-05-20] MEDS: VANCOMYCIN 1,000 MG/NS 250 ML IV SCH ×4 (10:00→23:51)
[2017-05-20] MEDS ORDERED: DEXTROSE 50% IN WATER 50 ML VIAL(D50) IV PRN (14:00)
[2017-05-20] MEDS ORDERED: GLUCAGON 1 MG/ML VIAL OTHER PRN (14:00)
--- NOTE | 2017-05-20 14:39 | HHI.PR ---
Subjective Remarks Follow-up for altered mental status Patient seems to be more confused and altered today. She is hallucinating. She is also seems more stiff/rigid. She was not given any Ativan or antipsychotics except for Seroquel. Her daughter is at the bedside. Objective Vitals Vital Signs Date Time Temp Pulse Resp B/P (MAP) Pulse Ox O2 Delivery O2 Flow Rate FiO2 05/20/17 12:00 98.1 77 22 171/91 (117) 94 05/20/17 07:57 98.3 87 22 173/65 (101) 97 05/20/17 04:29 98.3 89 21 161/75 (103) 82 05/20/17 00:55 97.7 89 19 156/95 (115) 100 05/19/17 21:21 98.6 92 20 154/89 (110) 100 05/19/17 20:10 Nasal Cannula 2.00 05/19/17 16:00 97.9 83 18 162/91 (114) 96 I/O 05/19/17 05/19/17 05/19/17 05/20/17 05/20/17 05/20/17 07:00 15:00 23:00 07:00 15:00 23:00 Intake Total 360 ml 550 ml 480 ml Output Total 400 ml 800 ml 550 ml 600 ml Balance -400 ml -440 ml 0 ml -120 ml Intake Oral 360 ml 480 ml IV Total 550 ml Output Urine Total 400 ml 800 ml 550 ml 600 ml # Voids 2 # Bowel Movements 1 1 2 Result Diagram: 05/20/17 0420 05/20/17 0420 Imaging Last Impressions Chest X-Ray 05/18/17 0600 Signed Impressions: Service Date/Time: Thursday, May 18, 2017 07:03 - CONCLUSION: Persistent but improving left lower lobe atelectasis or consolidation. Jeffery Mcnally MD Cholangiopancreatography MRI 05/13/17 0000 Signed Impressions: Service Date/Time: Saturday, May 13, 2017 10:43 - CONCLUSION: 1. Intra-and extrahepatic biliary ductal dilatation again noted with several small low signal filling defects in the distal common bile duct of concern for small stones. 2. The gallbladder remains distended in appearance with no definite evidence of scoliotic lithiasis or inflammatory change. Anjum Moon MD Chest CT 05/11/17 0936 Signed Impressions: Service Date/Time: Thursday, May 11, 2017 11:35 - CONCLUSION: 1. Small bilateral noncalcified pulmonary nodules ranging in size up to 7.6 mm. 2. Left lower lobe, right middle lobe and lingular airspace disease 3. No evidence of malignant lymphadenopathy 4. Collapsed bilateral breast implants. 5. Biliary duct dilatation Ihsan Perdomo MD Abdomen/Pelvis CT 05/11/17 0936 Signed Impressions: Service Date/Time: Thursday, May 11, 2017 11:35 - CONCLUSION: 1. Dilated biliary tree and main pancreatic duct with associated distention of the gallbladder characteristic of a distal common bile duct obstructing process. 2. No evidence of a pancreatic mass 3. Post surgical clip is identified in the dequan hepatis which may be related to the patient's obstructive process. 4. Side port of nasogastric tube is in the distal esophagus. Ihsan Perdomo MD Pelvis X-Ray 05/11/17 0756 Signed Impressions: Service Date/Time: Thursday, May 11, 2017 07:58 - CONCLUSION: No definite acute bony injury Jeffery Donaldson MD Head CT 05/11/17 0716 Signed Impressions: Service Date/Time: Thursday, May 11, 2017 08:32 - CONCLUSION: 1. No acute intracranial abnormality is identified. 2. 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 Jeffery Grace MD Objective Remarks GENERAL: Very thin female who was more agitated today and seems more rigid. CARDIOVASCULAR: Regular rate and rhythm without murmurs, gallops, or rubs. RESPIRATORY: Breath sounds equal bilaterally. No accessory muscle use. GASTROINTESTINAL: Abdomen soft, non-tender, nondistended. MUSCULOSKELETAL: Left side seems to be more rigid/stiff. Patient only moves her left arm if you assist her. Medications and IVs Current Medications IV Flush (NS Flush) 2 ml UNSCH PRN IV FLUSH FLUSH AFTER USING IV ACCESS; Start 05/11/17 at 07:30 Propofol 100 ml @ As Directed STK-MED ONCE .ROUTE ; Start 05/11/17 at 07:51; Stop 05/11/17 at 07:52; Status DC Propofol (Diprivan 200 Mg/20 ml Inj) 50 mg ONCE ONCE IV Last administered on 05/11/17t 07:57; Start 05/11/17 at 08:00; Stop 05/11/17 at 08:01; Status DC Propofol 100 ml @ 0 mls/hr TITRATE IV Last administered on 05/11/17 07:58; Start 05/11/17 at 08:00; Stop 05/11/17 at 09:50; Status DC Sodium Chloride 1,000 ml @ 999 mls/hr BOLUS ONCE IV Last administered on 05/11 09:10; Start 05/11/17 at 09:15; Stop 05/11/17 at 10:15; Status DC Sodium Chloride 1,000 ml @ 150 mls/hr Q6H40M IV Last administered on 04:47; Start 05/11/17 at 10:00; Stop 05/14/17 at 12:12; Status DC Acetaminophen (Tylenol) 650 mg Q6H PRN PO PAIN 1-10 AND/OR FEVER >101F Last administered on 05/13/17 17:02; Start 05/11/17 at 09:45 Fentanyl Citrate (fentaNYL INJ) 50 mcg Q1H PRN IV SEE LABEL COMMENTS Last administered on 05/15/17 15:10; Start 05/11/17 at 09:45; Stop 05/16/17 at 11:44 ; Status DC Albuterol/ Ipratropium (Duoneb Neb) 1 ampule Q6HR NEB NEB Last administered on 05/18/17 09:36; Start 05/11/17 at 10:00; Stop 05/18/17 at 12:18; Status DC Albuterol/ Ipratropium (Duoneb Neb) 1 ampule Q4HR NEB PRN INH SHORTNESS OF BREATH; Start 05/11/17 at 09:45 Chlorhexidine Gluconate (Peridex 0.12% Liq) 15 ml BID@08,20 MT Last administered on 05/19/17 08:00; Start 05/11/17 at 20:00 Pantoprazole Sodium (Protonix Inj) 40 mg DAILY IV Last administered on 10:35; Start 05/12/17 at 09:00 Enoxaparin Sodium (Lovenox Inj) 30 mg Q24H SQ Last administered on 05/13/17 11 :31; Start 05/11/17 at 11:00; Status Future Hold Miscellaneous Information 1 Q361D XX ; Start 05/11/17 at 09:45 Chlorhexidine Gluconate (Chlorhexidine 2% Cloth) Taper DAILY@04 TOP Last administered on 05/17/17 04:00; Start 05/12/17 at 04:00; Stop 05/08/18 at 03:59 Chlorhexidine Gluconate (Chlorhexidine 2% Cloth) 3 pack UNSCH PRN TOP HYGIENIC CARE; Start 05/11/17 at 09:45 Propofol 100 ml @ 0 mls/hr TITRATE IV Last administered on 05/14/17 04:52; Start 05/11/17 at 12:00; Stop 05/14/17 at 12:22; Status DC Piperacillin Sod/ Tazobactam Sod 50 ml @ 100 mls/hr Q6H IV Last administered on 05/20/17 05:08; Start 05/11/17 at 11:00 Iodixanol (VISIPAQUE 320 INJ (Rad CT)) 50 ml STK-MED ONCE IV Last administered on 05/11/17 11:45; Start 05/11/17 at 11:45; Stop 05/11/17 at 11:46; Status DC Potassium Chloride 100 ml @ 50 mls/hr Q2H PRN IV For Potassium 2.8 - 3.2 mEq/L ; Start 05/11/17 at 13:45; Stop 05/17/17 at 22:06; Status DC Potassium Chloride 100 ml @ 50 mls/hr Q2H PRN IV For Potassium 2.8 - 3.2 mEq/ L Last administered on 05/16/17 01:00; Start 05/11/17 at 13:45; Stop 05/17/17 at 22:06; Status DC Potassium Bicarb/ Potassium Chloride (K-Lyte Cl Eff) 50 meq UNSCH PRN PO For Potassium 3.3 - 3.5 mEq/L; Start 05/11/17 at 13:45; Stop 05/17/17 at 22:06; Status DC Potassium Chloride 100 ml @ 25 mls/hr UNSCH PRN IV For Potassium 3.3 - 3.5 mEq /L; Start 05/11/17 at 13:45; Stop 05/17/17 at 22:06; Status DC Potassium Chloride 100 ml @ 50 mls/hr Q2H PRN IV For Potassium 3.3 - 3.5 mEq/ L Last administered on 05/13/17 07:56; Start 05/11/17 at 13:45; Stop 05/17/17 at 22:06; Status DC Magnesium Sulfate 4 gm/Sodium Chloride 100 ml @ 50 mls/hr UNSCH PRN IV For Magnesium 0.9 - 1.1 mg/dL; Start 05/11/17 at 13:45; Stop 05/17/17 at 22:06; Status DC Magnesium Oxide (Mag-Ox) 800 mg UNSCH PRN PO For Magnesium 1.2 - 1.6 mg/dL; Start 05/11/17 at 13:45; Stop 05/17/17 at 22:06; Status DC Magnesium Sulfate 2 gm/Sodium Chloride 100 ml @ 50 mls/hr UNSCH PRN IV For Magnesium 1.2 - 1.6 mg/dL; Start 05/11/17 at 13:45; Stop 05/17/17 at 22:06; Status DC Potassium Phosphate (K-Phos) 2,000 mg Q4H PRN PO For Phosphorus < 2.5 mg/dL; Start 05/11/17 at 13:45; Stop 05/17/17 at 22:06; Status DC Sodium Phosphate 30 mmol/Sodium Chloride 250 ml @ 42 mls/hr UNSCH PRN IV For Phosphorus < 2.5 mg/dL; Start 05/11/17 at 13:45; Stop 05/17/17 at 22:06; Status DC Potassium Phosphate (K-Phos) 2,000 mg UNSCH PRN PO/TUBE SEE LABEL COMMENTS; Start 05/11/17 at 13:45; Stop 05/17/17 at 22:06; Status DC Potassium Phosphate 30 mmol/ Sodium Chloride 260 ml @ 42 mls/hr UNSCH PRN IV SEE LABEL COMMENTS; Start 05/11/17 at 13:45; Stop 05/17/17 at 22:06; Status DC Vancomycin HCl 1000 mg/Sodium Chloride 250 ml @ 250 mls/hr ONCE ONCE IV Last administered on 05/11/17 16:02; Start 05/11/17 at 13:45; Stop 05/11/17 at 14:44 ; Status DC Sodium Chloride 1,000 ml @ 999 mls/hr BOLUS ONCE IV Last administered on 05/11 13:45; Start 05/11/17 at 13:45; Stop 05/11/17 at 14:45; Status DC Sodium Chloride 1,000 ml @ 999 mls/hr BOLUS ONCE IV Last administered on 05/11 13:45; Start 05/11/17 at 13:45; Stop 05/11/17 at 14:45; Status DC Levofloxacin/ Dextrose 150 ml @ 100 mls/hr Q48H IV Last administered on 14:06; Start 05/11/17 at 14:00; Stop 05/14/17 at 12:22; Status DC Calcium Gluconate 2 gm/Sodium Chloride 120 ml @ 120 mls/hr ONCE ONCE IV Last administered on 05/11/17 18:43; Start 05/11/17 at 18:00; Stop 05/11/17 at 18:59 ; Status DC Mupirocin (Bactroban Nasal 2% Oint) 1 applic BID NASAL Last administered on 22:08; Start 05/12/17 at 09:00 Fentanyl Citrate (fentaNYL INJ) 100 mcg STK-MED ONCE .ROUTE ; Start 05/12/17 at 17:39; Stop 05/12/17 at 17:40; Status DC Iohexol (Omnipaque 350 Inj) 70 ml STK-MED ONCE OTHER Last administered on 11:34; Start 05/14/17 at 11:34; Stop 05/14/17 at 11:35; Status DC Furosemide (Lasix Inj) 40 mg ONCE ONCE IV PUSH Last administered on 05/14/17 12:58; Start 05/14/17 at 12:15; Stop 05/14/17 at 12:33; Status DC Potassium Bicarb/ Potassium Chloride (K-Lyte Cl Eff) 25 meq ONCE ONCE PO Last administered on 05/14/17 13:00; Start 05/14/17 at 12:15; Stop 05/14/17 at 12:33; Status DC Fentanyl Citrate 250 ml @ 0 mls/hr TITRATE IV Last administered on 05/15/17 21 :04; Start 05/14/17 at 18:00; Stop 05/16/17 at 11:44; Status DC Vancomycin HCl 1000 mg/Sodium Chloride 250 ml @ 250 mls/hr ONCE ONCE IV Last administered on 05/15/17 10:15; Start 05/15/17 at 10:00; Stop 05/15/17 at 10:59 ; Status DC Pharmacy Profile Note 0 ml @ 0 mls/hr UNSCH OTHER ; Start 05/15/17 at 10:00 Protein (Beneprotein Powder) 1 pack TID G-TUBE Last administered on 05/19/17 09:00; Start 05/15/17 at 13:00 Vancomycin HCl 1000 mg/Sodium Chloride 250 ml @ 250 mls/hr Q12H IV Last administered on 05/19/17 22:07; Start 05/15/17 at 22:00 Miscellaneous Information SPECIFIC LAB TO BE DRAWN:VANCOMYCIN TROUGH DATE TO... ONCE ONCE .XX ; Start 05/17/17 at 09:45; Stop 05/17/17 at 09:46; Status DC Propofol 100 ml @ As Directed STK-MED ONCE .ROUTE Last administered on 17:49; Start 05/15/17 at 17:49; Stop 05/15/17 at 17:50; Status DC Methylprednisolone Sodium Succinate (SoluMEDROL INJ) 40 mg BID IV Last administered on 05/18/17 09:46; Start 05/15/17 at 21:00; Stop 05/18/17 at 19:43 ; Status DC Propofol 100 ml @ 0 mls/hr TITRATE IV Last administered on 05/16/17 08:46; Start 05/15/17 at 23:30; Stop 05/16/17 at 11:44; Status DC Furosemide (Lasix Inj) 40 mg STK-MED ONCE .ROUTE ; Start 05/16/17 at 09:11; Stop 05/16/17 at 09:12; Status DC Furosemide (Lasix Inj) 40 mg ONCE ONCE IV Last administered on 05/16/17 11:15 ; Start 05/16/17 at 11:15; Stop 05/16/17 at 11:16; Status DC Budesonide/ Formoterol Fumarate (Symbicort 160-4.5 Inh) 1 puff Q12HR INH Last administered on 05/18/17 09:47; Start 05/16/17 at 14:00 Miscellaneous Information SPECIFIC LAB TO BE DRAWN:VANCOMYCIN TROUGH DATE TO... ONCE ONCE .XX Last administered on 05/18/17 10:01; Start 05/18/17 at 09:45; Stop 05/18/17 at 09:46; Status DC Quetiapine Fumarate (SEROquel) 25 mg BID PO Last administered on 05/19/17 22: 08; Start 05/17/17 at 21:00; Stop 05/20/17 at 13:23; Status DC Alprazolam (Xanax) 0.25 mg Q8H PRN PO ANXIETY Last administered on 05/19/17 22 :09; Start 05/17/17 at 19:00 Metoprolol Tartrate (Lopressor) 12.5 mg Q12HR PO Last administered on 22:08; Start 05/17/17 at 23:30 Enalaprilat (Vasotec Inj) 1.25 mg Q6H PRN IV PUSH SBP >165; Start 05/17/17 at 23:30 Potassium Chloride 100 ml @ 100 mls/hr Q1H IV Last administered on 05/18/17 18:15; Start 05/18/17 at 14:00; Stop 05/18/17 at 16:59; Status DC Potassium Chloride (KCl) 20 meq ONCE ONCE PO Last administered on 05/18/17 15 :44; Start 05/18/17 at 13:15; Stop 05/18/17 at 13:37; Status DC Prednisone (Deltasone) 10 mg BID PO Last administered on 05/19/17 22:08; Start 05/18/17 at 21:00 Potassium Chloride 100 ml @ 100 mls/hr Q1H IV Last administered on 05/19/17 16:25; Start 05/19/17 at 13:00; Stop 05/19/17 at 15:59; Status DC Potassium Bicarb/ Potassium Chloride (K-Lyte Cl Eff) 50 meq ONCE ONCE PO ; Start 05/19/17 at 13:00; Stop 05/19/17 at 13:01; Status DC Lisinopril (Prinivil) 10 mg DAILY PO ; Start 05/19/17 at 13:15; Stop 05/20/17 at 13:55; Status DC Enalaprilat (Vasotec Inj) 2.5 mg Q6H PRN IV PUSH SBP>180 or DBP> 100; Start at 13:15 Potassium Chloride 100 ml @ 50 mls/hr Q2H IV Last administered on 05/20/17 02 :00; Start 05/19/17 at 23:30; Stop 05/20/17 at 03:29; Status DC Potassium Bicarb/ Potassium Chloride (K-Lyte Cl Eff) 50 meq ONCE ONCE PO Last administered on 05/19/17 23:53; Start 05/19/17 at 23:30; Stop 05/19/17 at 23:31; Status DC Dextrose (D50w (Vial) Inj) 50 ml UNSCH PRN IV HYPOGLYCEMIA-SEE COMMENTS; Start 05/20/17 at 14:00 Glucagon (Glucagon Inj) 1 mg UNSCH PRN OTHER HYPOGLYCEMIA-SEE COMMENTS; Start 05/20/17 at 14:00 Lisinopril (Prinivil) 20 mg DAILY PO ; Start 05/20/17 at 14:00 A/P Problem List: (1) Acute encephalopathy ICD Code: G93.40 - Encephalopathy, unspecified Status: Acute (2) Acute respiratory failure ICD Code: J96.00 - Acute respiratory failure, unspecified whether with hypoxia or hypercapnia Status: Acute (3) Severe sepsis ICD Code: A41.9 - Sepsis, unspecified organism; R65.20 - Severe sepsis without septic shock Status: Acute (4) Acute kidney injury ICD Code: N17.9 - Acute kidney failure, unspecified Status: Acute (5) Acute hyperkalemia ICD Code: E87.5 - Hyperkalemia Status: Acute (6) Probable pneumonia Status: Acute (7) Probable CBD obstruction Status: Acute (8) Leukocytosis ICD Code: D72.829 - Elevated white blood cell count, unspecified Status: Acute (9) Rhabdomyolysis ICD Code: M62.82 - Rhabdomyolysis Status: Acute (10) Dehydration ICD Code: E86.0 - Dehydration Status: Acute (11) Hyponatremia ICD Code: E87.1 - Hypo-osmolality and hyponatremia Status: Acute Assessment and Plan Acute toxic metabolic encephalopathy Probable benzodiazepine overdose Probable prescription drug abuse - Initially altered mental status was thought to be due to benzo overdose. Mental status is worsening. -Initial CT scan was negative for any acute findings. -B12, TSH Ammonia normal, and EEG normal -Neurologist and psychiatrist were consulted. At the moment neurologist did not recommend further treatment unless EEG was abnormal. -Psychiatrist stated that they could not evaluate patient effectively secondary to her agitation. -Patient mental status is worsening and this seems to be more of a psych component. Labs are pretty stable. Will reconsult psych to assist. -Since she is becoming more rigid will discontinue Seroquel. -Will get a repeat CT scan of her head stat. Will also place an MRI of her head. Acute respiratory failure-resolved Bilateral pneumonia/aspiration (MRSA, serratia) Tobacco abuse, possible COPD - Extubated 05/16, respiratory status faustin she is doing well. DuoNeb scheduled and when necessary - CT chest shows mild bilateral infiltrates pneumonia versus aspiration - Continue broad-spectrum with Zosyn and vancomycin -Being followed by food safety technician. Hypertension -Continues to be uncontrolled. -Metoprolol. Increase lisinopril. -Patient has when necessary enalapril. MRCP shows probable distal CBD stones - PTHC unsuccessful, no further procedures planned by GI IR at this time - CT abdomen pelvis shows dilated biliary tree, dilated main pancreatic duct, and dilated gallbladder suggestive of distal gallbladder obstruction - MRCP with probable distal CBD stones - Gastroenterology unable to complete ERCP, remains to find ampulla due to surgical changes - IV pantoprazole, bowel regimen - Diet regular per speech rec Acute kidney injury- secondary to dehydration Rhabdomyolysis Hypokalemia - Monitor renal function , I/O's, electrolytes replacement per protocol. - Bumex 2 mg IV x1 given 05/14, given 40 mg Lasix 05/15 and 05/16 - Magnesium is normal. Potassium is now within normal limits. Continue to monitor and trend. Severe sepsis Pre hospital aspiration pneumonitis versus pneumonia (MRSA, serratia) Probable common biliary duct obstruction - Currently on Zosyn for Serratia and continue vancomycin for MRSA - DCd Levaquin 05/14 - Urine for Legionella and pneumococcal antigen neg - Sputum cx 05/13 MRSA and Serratia DVT prophylaxis Bilateral lower extremity SCDs. SQ Lovenox, Protonix Dealt with patient's daughter and her nurse at the bedside. Sitter at bedside. Discharge Planning Patient's altered mental status is worsening unsure if this is like Psych versus metabolic versus combination. She will need further workup. Problem Qualifiers (1) Leukocytosis: (2) Rhabdomyolysis: Karissa Coughlin MD May 20, 2017 14:39
[2017-05-20] MEDS ORDERED: LORazepam 2 MG/ML VIAL IV PUSH ONE (16:30)
[2017-05-20] MEDS ORDERED: GADODIAMIDE PF 287 MG/ML 10 ML VIAL (for RAD MRI) IVCONTRAST ONE (17:13)
--- NOTE | 2017-05-20 18:01 | RADRPT ---
EXAM DATE/TIME: 05/20/2017 17:04 [facility] COMPARISON: CT BRAIN W/O CONTRAST, May 20, 2017, 11:42. INDICATIONS : Altered mental status. Sepsis. CONTRAST: 8 cc Omniscan (gadodiamide) IV MEDICAL HISTORY : Carcinoma, breast. Chronic obstructive pulmonary disease. Encephalitis. SURGICAL HISTORY : Breast surgery. Partial gastrectomy. ENCOUNTER: Subsequent ACUITY: 3 weeks PAIN SCORE: 0/10 LOCATION: cranial TECHNIQUE: Multiplanar, multisequence MRI of the brain was performed both prior to and following the administrat ion of paramagnetic contrast. FINDINGS: There is no evidence for intracranial hemorrhage, mass effect, mass lesions, edema, or extra-axial fl uid collections. There are no signs of acute infarction for technique. The diffusion portion is unre markable. Slight degree of brain atrophy is seen. Slight periventricular white matter changes are see n nonspecific mostly consistent with chronic small vessel ischemic changes. There is old infarction i n the region of the right basal ganglia. CONCLUSION: Chronic atrophic and small vessel ischemic changes, old infarction on the right witho ut any evidence for acute hemorrhage or mass effect. Halley Polk MD on May 20, 2017 at 17:57 Board Certified Radiologist. This report was verified electronically.
[2017-05-20] MEDS: LISINOPRIL 20 MG TAB PO SCH (18:07)
[2017-05-21] VITALS (8 sets, daily range): BP systolic 117–185; BP diastolic 63–87; PULSE 73–107; RESP 18–20; TEMP 98.2–99.5; O2SAT 94–97
[2017-05-21] MEDS: CHLORHEXIDINE GLUCONATE 2 % 1 PACK (2 CLOTHS) TOP SCH (04:00)
[2017-05-21] MEDS: PIPERACIL-TAZO 3.375 GM PREMIX 50 ML IV SCH ×3 (05:24→16:53)
[2017-05-21] MEDS: CHLORHEXIDINE 0.12% (ORAL KIT) 15 ML CUP MT SCH ×2 (08:00→20:00)
--- NOTE | 2017-05-21 08:08 | MG ---
cc: PHIL BUCHANAN M.D. Lab No: [id number] Date: Age: Sex: F Race: Hyperventilation not performed. HISTORY: Old ischemia right basal ganglia. MEDICATIONS: Seroquel. Xanax. Lopressor. DESCRIPTION OF THE RECORD: Diffuse beta rhythms are seen, which are synchronous and symmetric. Some eye fluttering is noted, which does not appear to be associated with any epileptiform or seizure activity at epoch 35 and lasts about 30 seconds and some blink artifact is noted in mini blinks. No hemisphere asymmetries are noted. Photic stimulation was performed with some driving, which is a little bit more prominent on the right than the left at epoch 110 and then some bilateral driving is seen beyond that fairly synchronous and symmetric. Some movement artifact is noted. IMPRESSION: A normal EEG. I do not see any seizure activity here. Some eye fluttering was noted, which did not correlate with any seizure activity. Clinical correlation is needed. MD MORTEZA Luna/ELLA /7:33 PM /8:05 AM
[2017-05-21 08:59] LABS: BICARBONATE 29.6 MEQ/L (21.0-32.0); POTASSIUM 3.1 MEQ/L (3.5-5.1)
[2017-05-21] MEDS: BUDESONIDE-FORMOTEROL 160/4.5 MCG INHALER INH SCH ×2 (09:00→21:51)
[2017-05-21] MEDS: MUPIROCIN 2% OINT 1 APPLIC/GM SYR NASAL SCH ×2 (09:00→21:49)
[2017-05-21] MEDS: BENEPROTEIN POWDER 1 PACK G-TUBE SCH ×3 (09:00→18:00)
[2017-05-21 09:09] LABS: MEAN CORPUSCULAR HEMOGLOBIN 32.7 PG (27.0-34.0); MEAN CORPUSCULAR HGB CONC 32.1 % (32.0-36.0); PLATELET COUNT 477 TH/MM3 (150-450); RED BLOOD COUNT 3.72 MIL/MM3 (4.00-5.30); REVIEW FLAG FINAL; WHITE BLOOD COUNT 16.4 TH/MM3 (4.0-11.0)
[2017-05-21] MEDS ORDERED: LORazepam 2 MG/ML VIAL IV PUSH ONE (11:45)
--- NOTE | 2017-05-21 12:33 | HHI.PYPN ---
Subjective Remarks Patient seen for psychiatric reevaluation, she is alert, awake, continues to be very confused, disoriented, internally stimulated. Patient is inattentive, with impaired sensorium. She seems to be having visual hallucinations, continuously talking and looking around. To a period of agitation follows another of stiffness, rigidity, negativism and posturism. Review of Systems ROS Limitations: Uncooperative Objective Alert: Yes [place]: Person Mood: Agitated, Oppositional Affect: Flat Memory Intact: Comment (not able to be assessed) Hallucinations: Auditory, Visual Delusions: No Delusion Type: Other (not elicited) Suicidal: Ideation (no SI) Homicidal: Ideation (no HI) Insight/Judgment Poor Labs Test 05/21/17 07:15 White Blood Count 16.4 TH/MM3 Red Blood Count 3.72 MIL/MM3 Hemoglobin 12.2 GM/DL Hematocrit 38.0 % Mean Corpuscular Volume 102.0 FL Mean Corpuscular Hemoglobin 32.7 PG Mean Corpuscular Hemoglobin Concent 32.1 % Red Cell Distribution Width 13.0 % Platelet Count 477 TH/MM3 Mean Platelet Volume 8.0 FL Blood Urea Nitrogen 20 MG/DL Creatinine 0.68 MG/DL Random Glucose 102 MG/DL Calcium Level 9.4 MG/DL Sodium Level 148 MEQ/L Potassium Level 3.1 MEQ/L Chloride Level 107 MEQ/L Carbon Dioxide Level 29.6 MEQ/L Anion Gap 11 MEQ/L Estimat Glomerular Filtration Rate 86 ML/MIN Date/Time Source Procedure Growth Status 05/11/17 07:30 Blood Peripheral Aerobic Blood Culture - Final NO GROWTH IN 5 DAYS Complete 05/11/17 07:30 Blood Peripheral Anaerobic Blood Culture - Final NO GROWTH IN 5 DAYS Complete 05/13/17 06:35 Sputum Endotracheal Gram Stain - Final Complete 05/13/17 06:35 Sputum Culture - Final Serratia Marcescens S. Aureus Mrsa Complete 05/11/17 16:00 Urine Catheterized Urine Legionella Antigen - Final PRESUMPTIVE NEGATIVE FOR LEGIONELLA P... Complete 05/11/17 16:00 Urine Catheterized Urine Streptococcus pneumoniae Antigen (M - Final PRESUMPTIVE NEGATIVE FOR STREPTOCOCCU... Complete Vitals/IOs Vital Signs Date Time Temp Pulse Resp B/P (MAP) Pulse Ox O2 Delivery O2 Flow Rate FiO2 05/21/17 11:34 98.9 80 20 147/65 (92) 95 05/19/17 20:10 Nasal Cannula 2.00 05/17/17 09:45 21 Intake and Output 05/21/17 05/21/17 05/21/17 07:59 15:59 23:59 Intake Total 423 ml Output Total 600 ml Balance -177 ml Assessment & Plan Problem List: (1) Delirium due to another medical condition ICD Codes: F05 - Delirium due to known physiological condition Status: Acute Assessment & Plan: Patient continues to be delirious. Delirium is most probably related with underlying medical conditions. Negativism, stiffness, postural rigidity, stuporous state could be related with catatonia. Will challenge with ativan 2 mg iv and will monitor response to confirm diagnosis. Neurology consult appreciated. Would restart Seroquel at a lower dose 12.5 mg bid for psychosis and behavioral dysregulation. Patient might benefit of admission in the med psych unit. Assessment & Plan Estimated LOS: days Justification for Cont. Inpt. Will discuss with primary team the convenience of admitting her MedPsych unit. Krishna Croft MD May 21, 2017 12:33
[2017-05-21] MEDS: PANTOPRAZOLE SODIUM 40 MG VIAL IV SCH (12:35)
[2017-05-21] MEDS: METOPROLOL TARTRATE 25 MG TAB PO SCH ×2 (12:39→21:46)
[2017-05-21] MEDS: LISINOPRIL 20 MG TAB PO SCH (12:39)
[2017-05-21] MEDS: predniSONE 10 MG TAB PO SCH ×2 (12:39→21:46)
[2017-05-21] MEDS: VANCOMYCIN 1,000 MG/NS 250 ML IV SCH ×2 (13:30)
--- NOTE | 2017-05-21 15:15 | HHI.PR ---
Subjective Remarks Follow-up encephalopathy 05/21/17-patient seen and examined, questionable catatonia; stiffness and rigidity; and discussed with daughter June at bedside who thinks that her mom's mentation is getting worse. Patient not following commands however alert Objective Vitals Vital Signs Date Time Temp Pulse Resp B/P (MAP) Pulse Ox O2 Delivery O2 Flow Rate FiO2 05/21/17 14:23 95 Nasal Cannula 2.00 05/21/17 11:34 98.9 80 20 147/65 (92) 95 05/21/17 07:58 98.9 94 20 168/83 (111) 95 05/21/17 06:09 98.2 73 18 117/63 (81) 97 05/21/17 01:02 98.5 98 18 143/87 (105) 97 05/20/17 20:00 97.9 91 22 132/88 (103) 93 05/20/17 16:00 98.1 77 22 157/82 (107) 96 05/20/17 15:21 76 I/O 05/20/17 05/20/17 05/20/17 05/21/17 05/21/17 05/21/17 07:00 15:00 23:00 07:00 15:00 23:00 Intake Total 550 ml 480 ml 423 ml Output Total 550 ml 600 ml 600 ml 550 ml Balance 0 ml -120 ml -177 ml -550 ml Intake Oral 480 ml IV Total 550 ml 423 ml Output Urine Total 550 ml 600 ml 600 ml 550 ml # Bowel Movements 2 2 Result Diagram: 05/21/17 0715 05/21/17 0715 Imaging Last Impressions Chest X-Ray 05/18/17 0600 Signed Impressions: Service Date/Time: Thursday, May 18, 2017 07:03 - CONCLUSION: Persistent but improving left lower lobe atelectasis or consolidation. Jeffery Mcnally MD Cholangiopancreatography MRI 05/13/17 0000 Signed Impressions: Service Date/Time: Saturday, May 13, 2017 10:43 - CONCLUSION: 1. Intra-and extrahepatic biliary ductal dilatation again noted with several small low signal filling defects in the distal common bile duct of concern for small stones. 2. The gallbladder remains distended in appearance with no definite evidence of scoliotic lithiasis or inflammatory change. Anjum Moon MD Chest CT 05/11/17 0936 Signed Impressions: Service Date/Time: Thursday, May 11, 2017 11:35 - CONCLUSION: 1. Small bilateral noncalcified pulmonary nodules ranging in size up to 7.6 mm. 2. Left lower lobe, right middle lobe and lingular airspace disease 3. No evidence of malignant lymphadenopathy 4. Collapsed bilateral breast implants. 5. Biliary duct dilatation Ihsan Perdomo MD Abdomen/Pelvis CT 05/11/17 0936 Signed Impressions: Service Date/Time: Thursday, May 11, 2017 11:35 - CONCLUSION: 1. Dilated biliary tree and main pancreatic duct with associated distention of the gallbladder characteristic of a distal common bile duct obstructing process. 2. No evidence of a pancreatic mass 3. Post surgical clip is identified in the dequan hepatis which may be related to the patient's obstructive process. 4. Side port of nasogastric tube is in the distal esophagus. Ihsan Perdomo MD Pelvis X-Ray 05/11/17 0756 Signed Impressions: Service Date/Time: Thursday, May 11, 2017 07:58 - CONCLUSION: No definite acute bony injury Jeffery Donaldson MD Head CT 05/11/17 0716 Signed Impressions: Service Date/Time: Thursday, May 11, 2017 08:32 - CONCLUSION: 1. No acute intracranial abnormality is identified. 2. 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 Jeffery Grace MD Objective Remarks GENERAL: AND SKIN: Warm and dry. HEAD: Normocephalic. EYES: No scleral icterus. No injection or drainage. NECK: Supple, trachea midline. No JVD or lymphadenopathy. CARDIOVASCULAR: Regular rate and rhythm without murmurs, gallops, or rubs. RESPIRATORY: Breath sounds equal bilaterally. No accessory muscle use. GASTROINTESTINAL: Abdomen soft, non-tender, nondistended. MUSCULOSKELETAL: No cyanosis, or edema. BACK: Nontender without obvious deformity. No CVA tenderness. A/P Problem List: (1) Acute encephalopathy ICD Code: G93.40 - Encephalopathy, unspecified Status: Acute (2) Acute respiratory failure ICD Code: J96.00 - Acute respiratory failure, unspecified whether with hypoxia or hypercapnia Status: Acute (3) Severe sepsis ICD Code: A41.9 - Sepsis, unspecified organism; R65.20 - Severe sepsis without septic shock Status: Acute (4) Acute kidney injury ICD Code: N17.9 - Acute kidney failure, unspecified Status: Acute (5) Acute hyperkalemia ICD Code: E87.5 - Hyperkalemia Status: Acute (6) Probable pneumonia Status: Acute (7) Probable CBD obstruction Status: Acute (8) Leukocytosis ICD Code: D72.829 - Elevated white blood cell count, unspecified Status: Acute (9) Rhabdomyolysis ICD Code: M62.82 - Rhabdomyolysis Status: Acute (10) Dehydration ICD Code: E86.0 - Dehydration Status: Acute (11) Hyponatremia ICD Code: E87.1 - Hypo-osmolality and hyponatremia Status: Acute Assessment and Plan 71 year-old female with Acute toxic metabolic encephalopathy Probable benzodiazepine overdose Probable prescription drug abuse - Initially altered mental status was thought to be due to benzo overdose. -Initial CT scan was negative for any acute findings. -B12, TSH Ammonia normal, and EEG normal -Neurologist and psychiatrist were consulted. At the moment neurologist did not recommend further treatment unless EEG was abnormal. -Psychiatrist ff -Seroquel has been discontinued. Acute respiratory failure-resolved Bilateral pneumonia/aspiration (MRSA, serratia) Tobacco abuse, possible COPD - Extubated 05/16, respiratory status faustin she is doing well. DuoNeb scheduled and when necessary - CT chest shows mild bilateral infiltrates pneumonia versus aspiration - Continue broad-spectrum with Zosyn and vancomycin -supervisor marble ff. Hypertension -Metoprolol and lisinopril. -Vasotec when necessary MRCP shows probable distal CBD stones - PTHC unsuccessful, no further procedures planned by GI IR at this time - CT abdomen pelvis shows dilated biliary tree, dilated main pancreatic duct, and dilated gallbladder suggestive of distal gallbladder obstruction - MRCP with probable distal CBD stones - Gastroenterology unable to complete ERCP, remains to find ampulla due to surgical changes - IV pantoprazole Acute kidney injury- secondary to dehydration Rhabdomyolysis Hypokalemia - Monitor renal function , I/O's, electrolytes replacement per protocol. - Bumex 2 mg IV x1 given 05/14, given 40 mg Lasix 05/15 and 05/16 - Continue to monitor and trend. Severe sepsis Pre hospital aspiration pneumonitis versus pneumonia (MRSA, serratia) Probable common biliary duct obstruction - Currently on Zosyn for Serratia and continue vancomycin for MRSA - Urine for Legionella and pneumococcal antigen neg - Sputum cx 05/13 MRSA and Serratia DVT prophylaxis Bilateral lower extremity SCDs. SQ Lovenox, Protonix Problem Qualifiers (1) Leukocytosis: (2) Rhabdomyolysis: Molina Hutchinson MD May 21, 2017 15:15
[2017-05-21] MEDS: ALPRAZolam 0.25 MG TAB PO PRN (19:31)
--- NOTE | 2017-05-21 19:35 | HHI.PR ---
Subjective Remarks Remains and on O2 at 4L.Still agitated Taking some po diet. CXR shows a Left lower lobe infiltrate. Objective Vital Signs Date Time Temp Pulse Resp B/P (MAP) Pulse Ox O2 Delivery O2 Flow Rate FiO2 05/21/17 16:35 98.2 96 20 125/71 (89) 95 05/21/17 14:23 95 Nasal Cannula 2.00 05/21/17 11:34 98.9 80 20 147/65 (92) 95 05/21/17 07:58 98.9 94 20 168/83 (111) 95 05/21/17 06:09 98.2 73 18 117/63 (81) 97 05/21/17 01:02 98.5 98 18 143/87 (105) 97 05/20/17 20:00 97.9 91 22 132/88 (103) 93 I/O 05/20/17 05/20/17 05/20/17 05/21/17 05/21/17 05/21/17 07:00 15:00 23:00 07:00 15:00 23:00 Intake Total 550 ml 480 ml 423 ml Output Total 550 ml 600 ml 600 ml 550 ml Balance 0 ml -120 ml -177 ml -550 ml Intake Oral 480 ml IV Total 550 ml 423 ml Output Urine Total 550 ml 600 ml 600 ml 550 ml # Bowel Movements 2 2 Result Diagram: 05/21/1771405/21/1715 Objective Remarks GENERAL: This is a thinly built elderly lady on O2 and agitated and confused HEENT: Head normocephalic. Pupils reactive. Sclerae are clear. Tongue is moist. Throat clear NECK: Supple without venous distension or thyromegaly. CHEST: Distant breath sounds with occasional wheezes in the upper lung mccabe. Occ basal crackles. HEART: The heart sounds are regular S1-S2. No murmur. ABDOMEN: Soft and protuberant without masses. No organomegaly or tenderness. Bowel sounds are active. EXTREMITIES: Moves all. No edema. NEUROLOGIC: Reflexes 1+. Seems confused and agitated SKIN: Dry and cool. Assessment and Plan Assessment and Plan IMPRESSION 1. Acute respiratory failure resolving. 2. Hypoxic encephalopathy, resolving. 3. Aspiration pneumonia 4. COPD with emphysema 5. History of breast cancer 6. Probable bile duct obstruction. 7. Psychosis/ Encephalopathy 8. MRSA pneumonia Plan : 1. Cont o2 2 L. 2. Nebs qid , duoneb. 3. Cont Antibiotics and add Zyvox IV 4. IV Hydration 5. Seroquel 25 mg bid 6. Soft diet. 7. Xanax .25 mg tid prn 8. Cont Prednisone 10 mg bid 9. CBC,BMP , in am Rosalia Nelson MD May 21, 2017 19:35
[2017-05-21] MEDS: LINEZOLID 600 MG PREMIX 300 ML IV SCH (21:46)
[2017-05-21] MEDS: ENALAPRILAT 2.5 MG/2 ML VIAL IV PUSH PRN (21:47)
[2017-05-22] VITALS (7 sets, daily range): BP systolic 137–184; BP diastolic 73–80; PULSE 68–98; RESP 18–20; TEMP 97.3–98.7; O2SAT 93–98
[2017-05-22] MEDS: PIPERACIL-TAZO 3.375 GM PREMIX 50 ML IV SCH ×4 (00:07→16:37)
[2017-05-22] MEDS: CHLORHEXIDINE GLUCONATE 2 % 1 PACK (2 CLOTHS) TOP SCH (04:00)
[2017-05-22] MEDS: ALPRAZolam 0.25 MG TAB PO PRN (05:14)
--- NOTE | 2017-05-22 06:54 | RADRPT ---
EXAM DATE/TIME: 05/22/2017 05:39 [facility] COMPARISON: CHEST SINGLE AP, May 18, 2017, 7:03. INDICATIONS : Short of breath, evaluate pneumonia MEDICAL HISTORY : Carcinoma, breast. clavicle fracture SURGICAL HISTORY : Mastectomy, left. Tubal ligation. gastric resection ENCOUNTER: Subsequent ACUITY: 1 week PAIN SCORE: Non-responsive. LOCATION: Bilateral chest FINDINGS: A single view of the chest demonstrates mild basilar airspace disease similar to May 18. Trace ple ural fluid. Left clavicle fracture stable. Surgical clips left axilla. CONCLUSION: 1. Mild basilar airspace disease. Trace pleural fluid. Josue Guzman MD on May 22, 2017 at 6:51 Board Certified Radiologist. This report was verified electronically.
[2017-05-22] MEDS: CHLORHEXIDINE 0.12% (ORAL KIT) 15 ML CUP MT SCH ×2 (08:00→20:00)
[2017-05-22] MEDS: MUPIROCIN 2% OINT 1 APPLIC/GM SYR NASAL SCH ×2 (09:00→21:00)
[2017-05-22] MEDS: BENEPROTEIN POWDER 1 PACK G-TUBE SCH ×3 (09:00→18:00)
[2017-05-22] MEDS: BUDESONIDE-FORMOTEROL 160/4.5 MCG INHALER INH SCH ×2 (10:53→22:39)
[2017-05-22] MEDS: LINEZOLID 600 MG PREMIX 300 ML IV SCH ×2 (10:54→22:39)
[2017-05-22] MEDS: PANTOPRAZOLE SODIUM 40 MG VIAL IV SCH (10:55)
[2017-05-22] MEDS: LISINOPRIL 20 MG TAB PO SCH (10:59)
[2017-05-22] MEDS: predniSONE 10 MG TAB PO SCH ×2 (10:59→22:42)
[2017-05-22] MEDS: METOPROLOL TARTRATE 25 MG TAB PO SCH ×2 (10:59→22:42)
[2017-05-22] MEDS: SODIUM CHLOR 0.9% 1000 ML INJ 1,000 ML IV SCH (12:45)
[2017-05-22] MEDS ORDERED: POTASSIUM CHLORIDE 25 MEQ EFFERVESCENT TAB PO ONE (12:45)
--- NOTE | 2017-05-22 12:50 | HHI.PR ---
Subjective Remarks Follow-up encephalopathy 05/21/17-patient seen and examined, questionable catatonia; stiffness and rigidity; and discussed with daughter June at bedside who thinks that her mom's mentation is getting worse. Patient not following commands however alert 05/22/17-patient seen and examined, appears calmer today with less body rigidity and stiffness. However does not follow command. Per nurse's report, she was able to recognize her neighbor who came to visit today Objective Vitals Vital Signs Date Time Temp Pulse Resp B/P (MAP) Pulse Ox O2 Delivery O2 Flow Rate FiO2 05/22/17 12:02 98.5 81 18 172/77 (108) 97 05/22/17 10:15 97 Nasal Cannula 2.00 05/22/17 08:04 98.3 74 18 184/80 (114) 97 05/22/17 04:00 97.5 68 20 158/73 (101) 98 05/22/17 00:00 98.7 98 20 137/78 (97) 94 05/21/17 20:25 Nasal Cannula 2.00 05/21/17 20:00 99.5 107 20 185/81 (115) 94 05/21/17 16:35 98.2 96 20 125/71 (89) 95 05/21/17 14:23 95 Nasal Cannula 2.00 I/O 05/21/17 05/21/17 05/21/17 05/22/17 05/22/17 05/22/17 07:00 15:00 23:00 07:00 15:00 23:00 Intake Total 423 ml Output Total 600 ml 550 ml 600 ml Balance -177 ml -550 ml -600 ml IV Total 423 ml Output Urine Total 600 ml 550 ml 600 ml # Bowel Movements 2 1 Result Diagram: 05/21/17 0715 05/22/17 0900 Objective Remarks GENERAL: AND SKIN: Warm and dry. HEAD: Normocephalic. EYES: No scleral icterus. No injection or drainage. NECK: Supple, trachea midline. No JVD or lymphadenopathy. CARDIOVASCULAR: Regular rate and rhythm without murmurs, gallops, or rubs. RESPIRATORY: Breath sounds equal bilaterally. No accessory muscle use. GASTROINTESTINAL: Abdomen soft, non-tender, nondistended. MUSCULOSKELETAL: No cyanosis, or edema. BACK: Nontender without obvious deformity. No CVA tenderness. A/P Problem List: (1) Acute encephalopathy ICD Code: G93.40 - Encephalopathy, unspecified Status: Acute (2) Acute respiratory failure ICD Code: J96.00 - Acute respiratory failure, unspecified whether with hypoxia or hypercapnia Status: Acute (3) Severe sepsis ICD Code: A41.9 - Sepsis, unspecified organism; R65.20 - Severe sepsis without septic shock Status: Acute (4) Acute kidney injury ICD Code: N17.9 - Acute kidney failure, unspecified Status: Acute (5) Acute hyperkalemia ICD Code: E87.5 - Hyperkalemia Status: Acute (6) Probable pneumonia Status: Acute (7) Probable CBD obstruction Status: Acute (8) Leukocytosis ICD Code: D72.829 - Elevated white blood cell count, unspecified Status: Acute (9) Rhabdomyolysis ICD Code: M62.82 - Rhabdomyolysis Status: Acute (10) Dehydration ICD Code: E86.0 - Dehydration Status: Acute (11) Hyponatremia ICD Code: E87.1 - Hypo-osmolality and hyponatremia Status: Acute Assessment and Plan 71 year-old female with Acute toxic metabolic encephalopathy Probable benzodiazepine overdose Probable prescription drug abuse - Initially altered mental status was thought to be due to benzo overdose. -Initial CT scan was negative for any acute findings. -B12, TSH Ammonia normal, and EEG normal -Neurologist and psychiatrist were consulted. At the moment neurologist did not recommend further treatment unless EEG was abnormal. -Psychiatrist ff -Seroquel has been discontinued. Acute respiratory failure-resolved Bilateral pneumonia/aspiration (MRSA, serratia) Tobacco abuse, possible COPD - Extubated 05/16, respiratory status faustin she is doing well. DuoNeb scheduled and when necessary - CT chest shows mild bilateral infiltrates pneumonia versus aspiration - Continue broad-spectrum with Zosyn and Zyvox -synthetic department supervisor ff. Hypertension -Metoprolol and lisinopril. -Vasotec when necessary MRCP shows probable distal CBD stones - PTHC unsuccessful, no further procedures planned by GI IR at this time - CT abdomen pelvis shows dilated biliary tree, dilated main pancreatic duct, and dilated gallbladder suggestive of distal gallbladder obstruction - MRCP with probable distal CBD stones - Gastroenterology unable to complete ERCP, remains to find ampulla due to surgical changes - IV pantoprazole Acute kidney injury- secondary to dehydration Rhabdomyolysis Hypokalemia - Monitor renal function , I/O's, electrolytes replacement per protocol. - Give potassium 50 mEq 1 now Severe sepsis Pre hospital aspiration pneumonitis versus pneumonia (MRSA, serratia) Probable common biliary duct obstruction - Currently on Zosyn and Zyvox - Urine for Legionella and pneumococcal antigen neg - Sputum cx 05/13 MRSA and Serratia DVT prophylaxis Bilateral lower extremity SCDs. SQ Lovenox, Protonix Problem Qualifiers (1) Leukocytosis: (2) Rhabdomyolysis: Molina Hutchinson MD May 22, 2017 12:50
--- NOTE | 2017-05-22 18:55 | HHI.PR ---
Subjective Remarks Remains and on O2 at 4L. Confused and agitated Taking some po diet. CXR shows Mild atelectasis and small effusions Objective Vital Signs Date Time Temp Pulse Resp B/P (MAP) Pulse Ox O2 Delivery O2 Flow Rate FiO2 05/22/17 16:22 97.3 76 18 178/75 (109) 94 05/22/17 12:02 98.5 81 18 172/77 (108) 97 05/22/17 10:15 97 Nasal Cannula 2.00 05/22/17 08:04 98.3 74 18 184/80 (114) 97 05/22/17 04:00 97.5 68 20 158/73 (101) 98 05/22/17 00:00 98.7 98 20 137/78 (97) 94 05/21/17 20:25 Nasal Cannula 2.00 05/21/17 20:00 99.5 107 20 185/81 (115) 94 I/O 05/21/17 05/21/17 05/21/17 05/22/17 05/22/17 05/22/17 07:00 15:00 23:00 07:00 15:00 23:00 Intake Total 423 ml 360 ml Output Total 600 ml 550 ml 600 ml 500 ml Balance -177 ml -550 ml -600 ml -140 ml Intake Oral 360 ml IV Total 423 ml Output Urine Total 600 ml 550 ml 600 ml 500 ml # Bowel Movements 2 1 3 Result Diagram: 05/21/17 0715 05/22/17 0900 Objective Remarks GENERAL: This is a thinly built elderly lady on O2 and agitated and confused HEENT: Head normocephalic. Pupils reactive. Sclerae are clear. Tongue is dry and Throat clear NECK: Supple without venous distension or thyromegaly. CHEST: Distant breath sounds with occasional wheezes in the upper lung mccabe. Occ basal crackles. HEART: The heart sounds are regular S1-S2. No murmur. ABDOMEN: Soft and protuberant without masses. No organomegaly or tenderness. Bowel sounds are active. EXTREMITIES: Moves all. No edema. NEUROLOGIC: Reflexes 1+. Seems confused and agitated. SKIN: Dry and cool. Assessment and Plan Assessment and Plan IMPRESSION 1. Acute respiratory failure resolving. 2. Hypoxic encephalopathy, resolving. 3. Aspiration pneumonia resolving 4. COPD with emphysema 5. History of breast cancer 6. Probable bile duct obstruction. 7. Psychosis/ Encephalopathy 8. MRSA pneumonia Plan : 1. Cont o2 2 L. 2. Nebs qid , duoneb. 3. Cont Antibiotics and Zyvox IV 4. IV Hydration 5. CBC,BMP , in am 6. Soft diet. 7. Xanax .25 mg tid prn 8. Cont Prednisone 10 mg bid Rosalia Nelson MD May 22, 2017 18:55
[2017-05-23] VITALS (7 sets, daily range): BP systolic 132–187; BP diastolic 73–93; PULSE 68–103; RESP 20–22; TEMP 97–99; O2SAT 68–97
[2017-05-23] MEDS: PIPERACIL-TAZO 3.375 GM PREMIX 50 ML IV SCH ×4 (00:02→17:36)
[2017-05-23] MEDS: CHLORHEXIDINE GLUCONATE 2 % 1 PACK (2 CLOTHS) TOP SCH (04:00)
[2017-05-23] MEDS: SODIUM CHLOR 0.9% 1000 ML INJ 1,000 ML IV SCH ×2 (04:57→17:21)
[2017-05-23] MEDS: ALPRAZolam 0.25 MG TAB PO PRN ×2 (05:09→21:50)
[2017-05-23] MEDS: CHLORHEXIDINE 0.12% (ORAL KIT) 15 ML CUP MT SCH ×2 (08:00→20:00)
--- NOTE | 2017-05-23 08:53 | RADRPT ---
EXAM DATE/TIME: 05/20/2017 11:42 [facility] COMPARISON: CT BRAIN W/O CONTRAST, May 11, 2017, 8:32. INDICATIONS : Altered mental status. RADIATION DOSE: 26.98 CTDIvol (mGy) MEDICAL HISTORY : Carcinoma, breast. MRSA, encephalitis SURGICAL HISTORY : Tubal ligation. ENCOUNTER: Initial ACUITY: 2 days PAIN SCALE: Non-responsive LOCATION: cranial TECHNIQUE: Multiple contiguous axial images were obtained of the head. Using automated exposure control and adj ustment of the mA and/or kV according to patient size, radiation dose was kept as low as reasonably a chievable to obtain optimal diagnostic quality images. DICOM format image data is available electro nically for review and comparison. FINDINGS: CEREBRUM: Old right basal ganglia infarct. The ventricles are normal for age. No evidence of midline shift, ma ss lesion, hemorrhage or acute infarction. No extra-axial fluid collections are seen. POSTERIOR FOSSA: The cerebellum and brainstem are intact. The 4th ventricle is midline. The cerebellopontine angle i s unremarkable. EXTRACRANIAL: The visualized portion of the orbits is intact. SKULL: The calvaria is intact. No evidence of skull fracture. CONCLUSION: 1. Remote right basal ganglia infarct. 2. No change from previous study. Molina Henry MD on May 20, 2017 at 12:14 Board Certified Radiologist. This report was verified electronically.
[2017-05-23] MEDS: BUDESONIDE-FORMOTEROL 160/4.5 MCG INHALER INH SCH ×2 (09:00→21:49)
[2017-05-23] MEDS: BENEPROTEIN POWDER 1 PACK G-TUBE SCH ×3 (09:00→18:00)
[2017-05-23] MEDS: PANTOPRAZOLE SODIUM 40 MG VIAL IV SCH (09:16)
[2017-05-23] MEDS: predniSONE 10 MG TAB PO SCH (09:17)
[2017-05-23] MEDS: METOPROLOL TARTRATE 25 MG TAB PO SCH ×2 (09:17→21:50)
[2017-05-23] MEDS: LISINOPRIL 20 MG TAB PO SCH (09:17)
[2017-05-23] MEDS: MUPIROCIN 2% OINT 1 APPLIC/GM SYR NASAL SCH ×2 (09:17→21:49)
--- NOTE | 2017-05-23 10:32 | HHI.PR ---
Subjective Remarks Follow-up encephalopathy 05/21/17-patient seen and examined, questionable catatonia; stiffness and rigidity; and discussed with daughter June at bedside who thinks that her mom's mentation is getting worse. Patient not following commands however alert 05/22/17-patient seen and examined, appears calmer today with less body rigidity and stiffness. However does not follow command. Per nurse's report, she was able to recognize her neighbor who came to visit today 05/23/17-patient seen and examined, no change. She is alert however does not follow commands. She does not appear agitated. Vitals stable. Objective Vitals Vital Signs Date Time Temp Pulse Resp B/P (MAP) Pulse Ox O2 Delivery O2 Flow Rate FiO2 05/23/17 08:23 97.7 89 22 132/93 (106) 97 05/23/17 04:00 97.5 94 20 142/76 (98) 95 05/23/17 00:00 97.0 68 20 172/73 (106) 68 05/22/17 20:00 97.8 75 18 160/73 (102) 93 05/22/17 20:00 68 05/22/17 16:22 97.3 76 18 178/75 (109) 94 05/22/17 12:02 98.5 81 18 172/77 (108) 97 I/O 05/22/17 05/22/17 05/22/17 05/23/17 05/23/17 05/23/17 07:00 15:00 23:00 07:00 15:00 23:00 Intake Total 360 ml Output Total 600 ml 500 ml 850 ml 1300 ml Balance -600 ml -140 ml -850 ml -1300 ml Intake Oral 360 ml Output Urine Total 600 ml 500 ml 850 ml 1300 ml # Bowel Movements 1 3 2 Result Diagram: 05/21/17 0715 05/22/17 0900 Objective Remarks GENERAL: AND SKIN: Warm and dry. HEAD: Normocephalic. EYES: No scleral icterus. No injection or drainage. NECK: Supple, trachea midline. No JVD or lymphadenopathy. CARDIOVASCULAR: Regular rate and rhythm without murmurs, gallops, or rubs. RESPIRATORY: Breath sounds equal bilaterally. No accessory muscle use. GASTROINTESTINAL: Abdomen soft, non-tender, nondistended. MUSCULOSKELETAL: No cyanosis, or edema. BACK: Nontender without obvious deformity. No CVA tenderness. A/P Problem List: (1) Acute encephalopathy ICD Code: G93.40 - Encephalopathy, unspecified Status: Acute (2) Acute respiratory failure ICD Code: J96.00 - Acute respiratory failure, unspecified whether with hypoxia or hypercapnia Status: Acute (3) Severe sepsis ICD Code: A41.9 - Sepsis, unspecified organism; R65.20 - Severe sepsis without septic shock Status: Acute (4) Acute kidney injury ICD Code: N17.9 - Acute kidney failure, unspecified Status: Acute (5) Acute hyperkalemia ICD Code: E87.5 - Hyperkalemia Status: Acute (6) Probable pneumonia Status: Acute (7) Probable CBD obstruction Status: Acute (8) Leukocytosis ICD Code: D72.829 - Elevated white blood cell count, unspecified Status: Acute (9) Rhabdomyolysis ICD Code: M62.82 - Rhabdomyolysis Status: Acute (10) Dehydration ICD Code: E86.0 - Dehydration Status: Resolved (11) Hyponatremia ICD Code: E87.1 - Hypo-osmolality and hyponatremia Status: Resolved Assessment and Plan 71 year-old female with Acute toxic metabolic encephalopathy Probable benzodiazepine overdose Probable prescription drug abuse - Initially altered mental status was thought to be due to benzo overdose. -Initial CT scan was negative for any acute findings. -B12, TSH Ammonia normal, and EEG normal -Neurologist and psychiatrist were consulted. At the moment neurologist did not recommend further treatment unless EEG was abnormal. -Psychiatrist ff Acute respiratory failure-resolved Bilateral pneumonia/aspiration (MRSA, serratia) Tobacco abuse, possible COPD - Extubated 05/16, respiratory status faustin she is doing well. DuoNeb scheduled and when necessary - CT chest shows mild bilateral infiltrates pneumonia versus aspiration - Continue broad-spectrum with Zosyn and Zyvox, will eventually switch to by mouth Bactrim DS -traffic manager ff. Hypertension -Metoprolol and lisinopril. -Vasotec when necessary MRCP shows probable distal CBD stones - PTHC unsuccessful, no further procedures planned by GI IR at this time - CT abdomen pelvis shows dilated biliary tree, dilated main pancreatic duct, and dilated gallbladder suggestive of distal gallbladder obstruction - MRCP with probable distal CBD stones - Gastroenterology unable to complete ERCP, remains to find ampulla due to surgical changes - IV pantoprazole Acute kidney injury- secondary to dehydration Rhabdomyolysis Hypokalemia - Monitor renal function , I/O's, electrolytes replacement per protocol. Severe sepsis-Resolved Pre hospital aspiration pneumonitis versus pneumonia (MRSA, serratia) Probable common biliary duct obstruction - Currently on Zosyn and Zyvox - Urine for Legionella and pneumococcal antigen neg - Sputum cx 05/13 MRSA and Serratia DVT prophylaxis Bilateral lower extremity SCDs. SQ Lovenox, Protonix Problem Qualifiers (1) Leukocytosis: (2) Rhabdomyolysis: Molina Hutchinson MD May 23, 2017 10:32
[2017-05-23 10:33] LABS: AUTOMATED NEUTROPHIL # 19.4 TH/MM3 (1.8-7.7); BASOPHIL % 0.2 % (0.0-2.0); HEMATOCRIT 35.2 % (35.0-46.0); HEMO FLAGS DIFF FINAL; LYMPH % 2.8 % (9.0-44.0); LYMPHOCYTE # 0.6 TH/MM3 (1.0-4.8); MEAN CELL VOLUME 100.3 FL (80.0-100.0); MEAN CORPUSCULAR HEMOGLOBIN 32.3 PG (27.0-34.0); MEAN CORPUSCULAR HGB CONC 32.2 % (32.0-36.0); PLATELET COUNT 426 TH/MM3 (150-450); RED BLOOD COUNT 3.51 MIL/MM3 (4.00-5.30); RED CELL DISTRIBUTION WIDTH 12.5 % (11.6-17.2); WHITE BLOOD COUNT 21.8 TH/MM3 (4.0-11.0)
[2017-05-23 11:20] LABS: BICARBONATE 33.3 MEQ/L (21.0-32.0)
[2017-05-23 11:27] LABS: POTASSIUM 2.1 MEQ/L (3.5-5.1)
[2017-05-23] MEDS: LINEZOLID 600 MG PREMIX 300 ML IV SCH ×2 (11:30→21:49)
--- NOTE | 2017-05-23 19:10 | HHI.PR ---
Subjective Remarks Remains and on O2 at 4L. Confused but not agitated Taking some po diet.O2 sats >92 CXR shows Mild atelectasis and small effusions. Improved. Objective Vital Signs Date Time Temp Pulse Resp B/P (MAP) Pulse Ox O2 Delivery O2 Flow Rate FiO2 05/23/17 16:20 97.7 86 20 145/91 (109) 94 05/23/17 12:48 97.4 103 22 143/93 (110) 94 05/23/17 08:23 97.7 89 22 132/93 (106) 97 05/23/17 04:00 97.5 94 20 142/76 (98) 95 05/23/17 00:00 97.0 68 20 172/73 (106) 68 05/22/17 20:00 97.8 75 18 160/73 (102) 93 05/22/17 20:00 68 I/O 05/22/17 05/22/17 05/22/17 05/23/17 05/23/17 05/23/17 07:00 15:00 23:00 07:00 15:00 23:00 Intake Total 360 ml Output Total 600 ml 500 ml 850 ml 1600 ml Balance -600 ml -140 ml -850 ml -1600 ml Intake Oral 360 ml Output Urine Total 600 ml 500 ml 850 ml 1600 ml # Bowel Movements 1 3 2 Result Diagram: 05/23/17 1000 05/23/17 1000 Objective Remarks GENERAL: This is a thinly built elderly lady on O2 .Awake no distress HEENT: Head normocephalic. Pupils reactive. Sclerae are clear. Tongue is dry and Throat clear NECK: Supple without venous distension or thyromegaly. CHEST: Distant breath sounds with occasional wheezes in the upper lung mccabe. Occ basal crackles. HEART: The heart sounds are regular S1-S2. No murmur. ABDOMEN: Soft and protuberant without masses. No organomegaly or tenderness. Bowel sounds are active. EXTREMITIES: Moves all. No edema. NEUROLOGIC: Reflexes 1+. Confused. SKIN: Dry and cool. Assessment and Plan Assessment and Plan IMPRESSION 1. Acute respiratory failure resolving. 2. Hypoxic encephalopathy, resolving. 3. Aspiration pneumonia resolving 4. COPD with emphysema 5. History of breast cancer 6. Probable bile duct obstruction. 7. Psychosis/ Encephalopathy 8. MRSA pneumonia Plan : 1. Cont o2 2 L. 2. Nebs qid , duoneb. 3. Cont Antibiotics and switch to PO meds , Bactrim DS 4. IV Hydration 5. CBC,BMP , in am 6. Soft diet. 7. Xanax .25 mg tid prn 8. Taper Prednisone 10 mg daily Rosalia Nelson MD May 23, 2017 19:10
[2017-05-23] MEDS: SULFAMETHOXAZOLE-TRIMETHOPRIM 400-80 MG TAB PO SCH (23:31)
[2017-05-24] VITALS (9 sets, daily range): BP systolic 142–172; BP diastolic 77–89; PULSE 84–101; RESP 16–19; TEMP 97.6–99; O2SAT 93–96
[2017-05-24] MEDS: ENALAPRILAT 2.5 MG/2 ML VIAL IV PUSH PRN ×2 (00:19→16:47)
[2017-05-24] MEDS: POTASSIUM CHLOR 20 MEQ PREMIX 100 ML IV SCH ×5 (01:08→22:37)
[2017-05-24] MEDS: CHLORHEXIDINE GLUCONATE 2 % 1 PACK (2 CLOTHS) TOP SCH (04:00)
[2017-05-24] MEDS: ALPRAZolam 0.25 MG TAB PO PRN (05:41)
[2017-05-24] MEDS: SODIUM CHLOR 0.9% 1000 ML INJ 1,000 ML IV SCH ×2 (07:39→21:39)
[2017-05-24] MEDS: CHLORHEXIDINE 0.12% (ORAL KIT) 15 ML CUP MT SCH ×2 (08:00→20:00)
[2017-05-24 08:19] LABS: BICARBONATE 34.3 MEQ/L (21.0-32.0)
[2017-05-24 08:28] LABS: POTASSIUM 2.2 MEQ/L (3.5-5.1)
[2017-05-24] MEDS: LISINOPRIL 20 MG TAB PO SCH (09:00)
[2017-05-24] MEDS: BUDESONIDE-FORMOTEROL 160/4.5 MCG INHALER INH SCH ×2 (09:00→21:39)
[2017-05-24] MEDS: SULFAMETHOXAZOLE-TRIMETHOPRIM 400-80 MG TAB PO SCH ×2 (09:00→21:35)
[2017-05-24] MEDS: predniSONE 10 MG TAB PO SCH (09:00)
[2017-05-24] MEDS: BENEPROTEIN POWDER 1 PACK G-TUBE SCH ×3 (09:00→17:51)
[2017-05-24] MEDS: PANTOPRAZOLE SODIUM 40 MG VIAL IV SCH (09:00)
[2017-05-24] MEDS: MUPIROCIN 2% OINT 1 APPLIC/GM SYR NASAL SCH ×2 (09:00→21:35)
[2017-05-24] MEDS: METOPROLOL TARTRATE 25 MG TAB PO SCH ×2 (09:00→21:35)
[2017-05-24] MEDS: LINEZOLID 600 MG PREMIX 300 ML IV SCH (10:20)
--- NOTE | 2017-05-24 11:30 | HHI.PR ---
Subjective Remarks Remains and on O2 at 3 L. Confused and calm. Taking some po diet.But not adequate. O2 sats >92 CXR shows Mild atelectasis and small effusions. Improved. Objective Vital Signs Date Time Temp Pulse Resp B/P (MAP) Pulse Ox O2 Delivery O2 Flow Rate FiO2 05/24/17 11:00 90 05/24/17 08:00 97.6 84 16 150/84 (106) 96 05/24/17 05:16 98.0 98 18 142/80 (100) 05/24/17 03:56 99.0 89 18 167/89 (115) 93 05/24/17 02:03 95 147/81 (103) 95 05/23/17 23:46 99.0 95 20 187/90 (122) 95 05/23/17 20:00 95 05/23/17 16:20 97.7 86 20 145/91 (109) 94 05/23/17 12:48 97.4 103 22 143/93 (110) 94 I/O 05/23/17 05/23/17 05/23/17 05/24/17 05/24/17 05/24/17 07:00 15:00 23:00 07:00 15:00 23:00 Output Total 850 ml 1600 ml Balance -850 ml -1600 ml Output Urine Total 850 ml 1600 ml # Bowel Movements 2 Result Diagram: 05/23/17 1000 05/24/17 0700 Objective Remarks GENERAL: This is a thinly built elderly lady on O2 .Awake no distress HEENT: Head normocephalic. Pupils reactive. Sclerae are clear. Tongue is dry and Throat clear NECK: Supple without venous distension or thyromegaly. CHEST: Distant breath sounds with occasional wheezes in the upper lung mccabe. No crackles. HEART: The heart sounds are regular S1-S2. No murmur. ABDOMEN: Soft and protuberant without masses. No organomegaly or tenderness. Bowel sounds are active. EXTREMITIES: Moves all. No edema. NEUROLOGIC: Reflexes 1+. Confused. SKIN: Dry . Assessment and Plan Assessment and Plan IMPRESSION 1. Acute respiratory failure resolving. 2. Hypoxic encephalopathy, resolving. 3. Aspiration pneumonia resolving 4. COPD with emphysema 5. History of breast cancer 6. Probable bile duct obstruction. 7. Psychosis/ Encephalopathy 8. MRSA pneumonia Plan : 1. Cont o2 3 L. 2. Nebs qid , duoneb. 3. Cont Antibiotics and switch to PO meds , Bactrim DS 4. IV Hydration, Replace Potassium 5. CBC,BMP , in am 6. Soft diet.Possible feeding tube. 7. Xanax .25 mg tid prn 8.Prednisone 10 mg daily Rosalia Nelson MD May 24, 2017 11:29
[2017-05-24] MEDS: D5-1/2 NS + KCL 20 MEQ INJ 1,000 ML IV SCH (12:17)
--- NOTE | 2017-05-24 12:47 | RADRPT ---
EXAM DATE/TIME: 05/24/2017 11:33 [facility] COMPARISON: CHEST SINGLE AP, May 22, 2017, 5:39. INDICATIONS : Shortness of breath. MEDICAL HISTORY : Carcinoma, breast. clavicle fracture. SURGICAL HISTORY : Mastectomy, left. Tubal ligation. gastric resection. ENCOUNTER: Subsequent ACUITY: 1 week PAIN SCORE: Non-responsive. LOCATION: Bilateral chest FINDINGS: Minimal bibasilar airspace disease. Chronic mild interstitial prominence. Cardiothymic contours are w ithin normal limits. Surgical clips in the left axilla. The remainder of the exam is unchanged. CONCLUSION: 1. Minimal stable bibasilar airspace disease. 2. Note acute abnormality or significant interval change. Dav Amado MD on May 24, 2017 at 12:44 Board Certified Radiologist. This report was verified electronically.
--- NOTE | 2017-05-24 12:56 | HHI.PR ---
Subjective Remarks Follow-up encephalopathy 05/21/17-patient seen and examined, questionable catatonia; stiffness and rigidity; and discussed with daughter June at bedside who thinks that her mom's mentation is getting worse. Patient not following commands however alert 05/22/17-patient seen and examined, appears calmer today with less body rigidity and stiffness. However does not follow command. Per nurse's report, she was able to recognize her neighbor who came to visit today 05/23/17-patient seen and examined, no change. She is alert however does not follow commands. She does not appear agitated. Vitals stable. 05/24/17-patient seen and examined, alert however does not follow command. Afebrile. Potassium low. Worsening leukocytosis. Daughter by the bedside and requesting palliative care consult Objective Vitals Vital Signs Date Time Temp Pulse Resp B/P (MAP) Pulse Ox O2 Delivery O2 Flow Rate FiO2 05/24/17 11:00 90 05/24/17 08:00 97.6 84 16 150/84 (106) 96 05/24/17 05:16 98.0 98 18 142/80 (100) 05/24/17 03:56 99.0 89 18 167/89 (115) 93 05/24/17 02:03 95 147/81 (103) 95 05/23/17 23:46 99.0 95 20 187/90 (122) 95 05/23/17 20:00 95 05/23/17 16:20 97.7 86 20 145/91 (109) 94 I/O 05/23/17 05/23/17 05/23/17 05/24/17 05/24/17 05/24/17 06:59 14:59 22:59 06:59 14:59 22:59 Intake Total 400 ml Output Total 850 ml 1600 ml Balance -850 ml -1600 ml 400 ml IV Total 400 ml Output Urine Total 850 ml 1600 ml # Bowel Movements 2 Result Diagram: 05/23/17 1000 05/24/17 0700 Objective Remarks GENERAL: AND SKIN: Warm and dry. HEAD: Normocephalic. EYES: No scleral icterus. No injection or drainage. NECK: Supple, trachea midline. No JVD or lymphadenopathy. CARDIOVASCULAR: Regular rate and rhythm without murmurs, gallops, or rubs. RESPIRATORY: Breath sounds equal bilaterally. No accessory muscle use. GASTROINTESTINAL: Abdomen soft, non-tender, nondistended. MUSCULOSKELETAL: No cyanosis, or edema. BACK: Nontender without obvious deformity. No CVA tenderness. A/P Problem List: (1) Acute encephalopathy ICD Code: G93.40 - Encephalopathy, unspecified Status: Acute (2) Acute respiratory failure ICD Code: J96.00 - Acute respiratory failure, unspecified whether with hypoxia or hypercapnia Status: Acute (3) Severe sepsis ICD Code: A41.9 - Sepsis, unspecified organism; R65.20 - Severe sepsis without septic shock Status: Acute (4) Acute kidney injury ICD Code: N17.9 - Acute kidney failure, unspecified Status: Acute (5) Acute hyperkalemia ICD Code: E87.5 - Hyperkalemia Status: Acute (6) Probable pneumonia Status: Acute (7) Probable CBD obstruction Status: Acute (8) Leukocytosis ICD Code: D72.829 - Elevated white blood cell count, unspecified Status: Acute (9) Rhabdomyolysis ICD Code: M62.82 - Rhabdomyolysis Status: Acute (10) Dehydration ICD Code: E86.0 - Dehydration Status: Resolved (11) Hyponatremia ICD Code: E87.1 - Hypo-osmolality and hyponatremia Status: Resolved Assessment and Plan 71 year-old female with Acute toxic metabolic encephalopathy Probable benzodiazepine overdose Probable prescription drug abuse -Initial CT scan was negative for any acute findings. -B12, TSH Ammonia normal, and EEG normal -Neurologist and psychiatrist were consulted. At the moment neurologist did not recommend further treatment unless EEG was abnormal. -Psychiatrist ff Acute respiratory failure-resolved Bilateral pneumonia/aspiration (MRSA, serratia) Tobacco abuse, possible COPD - Extubated 05/16, respiratory status faustin she is doing well. DuoNeb scheduled and when necessary - CT chest shows mild bilateral infiltrates pneumonia versus aspiration - Completed broad-spectrum with Zosyn and Zyvox -human services program specialist ff. Hypertension -Metoprolol and lisinopril. -Vasotec when necessary MRCP shows probable distal CBD stones - PTHC unsuccessful, no further procedures planned by GI IR at this time - CT abdomen pelvis shows dilated biliary tree, dilated main pancreatic duct, and dilated gallbladder suggestive of distal gallbladder obstruction - MRCP with probable distal CBD stones - Gastroenterology unable to complete ERCP, remains to find ampulla due to surgical changes - IV pantoprazole Acute kidney injury- secondary to dehydration Rhabdomyolysis-resolved Hypokalemia -Replace electrolyte and monitor Severe sepsis-Resolved Pre hospital aspiration pneumonitis versus pneumonia (MRSA, serratia) Probable common biliary duct obstruction - Completed Zosyn and Zyvox - Urine for Legionella and pneumococcal antigen neg - Sputum cx 05/13 MRSA and Serratia Leukocytosis Worsening likely secondary to steroid DVT prophylaxis Bilateral lower extremity SCDs. SQ Lovenox, Protonix Will consult palliative care medicine Problem Qualifiers (1) Leukocytosis: (2) Rhabdomyolysis: Molina Hutchinson MD May 24, 2017 12:56
--- NOTE | 2017-05-24 14:52 | PD.CONS ---
Consult Service Palliative Care . Consult Requested By Dr. Hutchinson . Primary Care Physician Unknown . Reason for Consultation a. To assist with evaluation and management of symptoms including: Encephalopathy, pain, malnutrition b. To assist medical decision maker(s) with: better understanding of current medical conditions; weighing benefits/burdens of medical treatment options; making medical treatment decisions. . HPI History of Present Illness Ms. Stoner is a 71-year-old female who presented to [facility] ED via EMS for evaluation on 05/11/2017 after being found by her neighbors on the floor and unresponsive. When EMS arrived the patient respirations were shallow at 10 breaths per minute; she was intubated for airway protection. Friends report the patient was seen normal approximately one and half days earlier. Upon arrival to the ED, patient was hypothermic with a rectal temperature 96.7 Pulse: 79, respirations 16, blood pressure 175/94, oxygen saturation stable on 100% FiO2 via mechanical ventilator. Of note, the patient's past medical Street is significant for depression, OCD, EtOH abuse, COPD, history of breast cancer s/p alcohol mastectomy with reconstruction and chemotherapy, PUD s/p partial gastrectomy and vagotomy and chronic pelvic pain. Patient's daughter reports her mother had encephalitis as a child with residual left-sided deficits. Additional diagnostic findings: * WBC: 15.9, hemoglobin 14.7, hematocrit 42.1, platelets 325, neutrophils 88.2% * Sodium: 129, potassium 6.5, chloride 97, carbon dioxide 27.9, glucose 140, calcium 9.3 * BUN: 24, creatinine 1.35, GFR 39 * Lactic acid: 0.9 total bilirubin: 0.3, AST 45, ALT 31, alkaline phosphatase 112 * Ammonia: 16 * The total creatine kinase: 528, CK-MB 17.4 * Troponin: <0.02 * Total protein: 8.0, albumin 4.1 * PT: 10.4, INR 0.9, APTT 26.0 * Toxicology screen: + benzodiazepines * Urinalysis WNL * Blood cultures negative * Urine culture for Legionella and Pneumococcal antigen * CT chest revealed a small bilateral noncalcified pulmonary nodules ranging in size up to 7.6 mm. Left lower lobe, right middle lobe and lingular airspace disease. No evidence of malignant lymphadenopathy. Collapsed bilateral breast implants. Biliary duct dilatation. * Pelvic x-ray showed no definite acute bony injuries * Chest x-ray with hyperinflation of both lungs, mild patchy opacity at the left lung base which may represent atelectasis or possible scarring. * CT head revealed no acute intracranial abnormalities. Encephalomalacia related to old ischemia in the right basal ganglia was noted. Abnormal labs included a WBC of 15.9 with 88% neutrophils, sodium 129, potassium 6.5, BUN 24 and creatinine of 1.35. CPK was elevated at 528. Patient received IV fluid boluses. CT chest abdomen pelvis which showed mild chest infiltrates, and evidence of common bile duct obstruction (bilateral dilated biliary tree, main pancreatic duct, and gallbladder dilation). Patient received a single dose of vancomycin and was started Zosyn. Gastroenterology was consulted. Initial K was 6.5 but the specimen was hemolyzed, repeat CMP is pending. Patient was admitted to the ICU for further evaluation and medical management of acute toxic metabolic encephalopathy, acute respiratory failure, bilateral pneumonia/aspiration, probable distal biliary obstruction, acute kidney injury with electrolyte imbalances and rhabdomyolysis. Patient had an MRCP followed by an EGD with Dr. Hitchcock on 05/12/17. ERCP could not be performed secondary to anatomical changes from gastric surgery, unable to find ampulla. MRCP showed intra-and extrahepatic biliary dilatation and possible distal CBD stones. PTHC attempted by IR, but unsuccessful. 05/14/17: Patient tolerating CPAP trials. Follow-up chest x-ray showing left lower lung consolidation. Sputum culture from 05/13/17 growing serratia marcescens and MRSA. 05/15/17: Pulmonology was consulted to evaluate patient with COPD and respiratory failure. Patient has been tolerating CPAP and FiO2 of 35%. Echocardiogram with EF of 65-70%. Patient was extubated on 05/17/17. Psychiatry was consulted to evaluate this patient's delirium. Patient's daughters reported the patient has a psychiatric history that includes OCD and depression, that she has never required hospitalization. They verbalize concern that the patient may have been abusing benzodiazepines for several months. They state the patient has become more isolated and reclusive since October,. Neurology was consulted for possible seizures. Patient had a normal EEG earlier in this hospitalization; repeat EEG on 05/18/17 was again normal and did not show evidence of seizure activity. They will follow-up CT of the head. 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 Patient remains intermittently confused, able to answer some questions. Afebrile. Potassium is low. Worsening leukocytosis. Patient nutritional intake is minimal; family states patient would not want PEG tube placement or artificial nutrition. Family has requested a palliative care consult to assist with symptom management and to discuss the benefits and burdens of her current illnesses and the options regarding future care. . . Function/Cognitive Trajectory Patient's daughter have not seen the patient for > 1 year secondary to the patient's polysubstance abuse and behavioral issues. They clarify that the patient has a psychiatric history of OCD and depression, but has never required hospitalization. Patient reportedly has a history of " doctor jumping and poor compliance with medications". They state the patient has become more distant and isolated from them since October,. She has not been functioning very well with activities of daily living. A neighbor has been helping her with shopping, laundry and finances. The daughters are concerned this neighbor ( Mickey) is too involved with they're mother and is withholding information from them. . Review of Systems ROS Limitations: Altered Mental Status, Speech Impaired, Poor Historian Past Family Social History Coded Allergies: aspirin (Unverified Allergy, Mild, STOMACH IRRITATION, 05/15/17) Past Medical History COPD Hx PNA Hx encephalitis Breast cancer, s/p radical mastectomy with breast reconstruction, and chemotherapy Peptic ulcer disease, s/p partial gastrectomy and vagotomy Chronic pelvic pain History of depression OCD EtOH abuse . Past Surgical History Radial mastectomy with breast reconstruction Tubal ligation Partial gastrectomy and vagotomy Surgery to remove distal part of clavicle after dislocation Steroid injections . Reported Medications Unable to obtain . Current Medications Medications (Trade) Dose Ordered Sig/Jono Route Start Time Stop Time Status Last Admin (NS Flush) 2 ml UNSCH PRN IV FLUSH 05/11/17 07:30 (Tylenol) 650 mg Q6H PRN PO 05/11/17 09:45 05/13/17 17:02 (Duoneb Neb) 1 ampule Q4HR NEB PRN INH 05/11/17 09:45 (Peridex 0.12% Liq) 15 ml BID@08,20 MT 05/11/17 20:00 05/24/17 08:00 (Protonix Inj) 40 mg DAILY IV 05/12/17 09:00 05/24/17 09:00 (Lovenox Inj) 30 mg Q24H SQ 05/11/17 11:00 Future Hold 05/13/17 11:31 Miscellaneous Information 1 Q361D XX 05/11/17 09:45 (Chlorhexidine 2% Cloth) Taper DAILY@04 TOP 05/12/17 04:00 05/08/18 03:59 05/17/17 04:00 (Chlorhexidine 2% Cloth) 3 pack UNSCH PRN TOP 05/11/17 09:45 (Bactroban Nasal 2% Oint) 1 applic BID NASAL 05/12/17 09:00 05/23/17 21:49 (Beneprotein Powder) 1 pack TID G-TUBE 05/15/17 13:00 05/23/17 13:00 (Symbicort 160-4.5 Inh) 1 puff Q12HR INH 05/16/17 14:00 05/24/17 09:00 (Xanax) 0.25 mg Q8H PRN PO 05/17/17 19:00 05/24/17 05:41 (Lopressor) 12.5 mg Q12HR PO 05/17/17 23:30 05/24/17 09:00 (Vasotec Inj) 1.25 mg Q6H PRN IV PUSH 05/17/17 23:30 05/23/17 00:02 (Vasotec Inj) 2.5 mg Q6H PRN IV PUSH 05/19/17 13:15 05/24/17 00:19 (D50w (Vial) Inj) 50 ml UNSCH PRN IV 05/20/17 14:00 (Glucagon Inj) 1 mg UNSCH PRN OTHER 05/20/17 14:00 (Prinivil) 20 mg DAILY PO 05/20/17 14:00 05/24/17 09:00 Sodium Chloride 1,000 ml @ 70 mls/hr [id number] IV 05/22/17 12:45 05/24/17 07:39 (Deltasone) 10 mg DAILY PO 05/23/17 09:00 05/24/17 09:00 (Bactrim 400-80 Mg) 1 tab Q12HR PO 05/23/17 21:00 05/24/17 09:00 Potassium Chloride/Dextrose/ Sod Cl 1,000 ml @ 84 mls/hr [id number] IV 05/24/17 12:00 05/24/17 12:17 . Family History Patient's father at the age of 83 from hypertension. Her mother at the age of 81 from melanoma and coronary artery disease. She had one brother who any shooting accident at the age of 14. She has no sisters. . Substance Use Tobacco: Per review of notes, patient had a 11-[id number] smoking history in 2007. It is unknown if the patient is currently an active smoker. Alcohol: Prescription med abuse: Illicits: Psychosocial History Patient is originally from [place]. 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 They were for 14 years before getting . Together they had 2 daughters, June and Laly. June lives in [place] and is in the process of moving to [place]. Laly lives in [place]. Per June, the patient starting drinking after she was born and had ongoing problems with substance abuse and odd behaviors. She states her mother has made many poor lifestyle choices and not taking care of herself. Patient currently lives alone. She has been declining and has relied on her neighbor (Mickey) who has helped her with shopping, laundry and finances. The patient's daughter (June) alleges the patient's neighbor has been using her debit card in the past 2 weeks and she was hospitalized. . Spiritual/Cultural Factors Sikhism debora . Documented care wishes: Patient's daughter's state the patient has completed a living will that states that if she were to have a terminal condition, end-stage condition on lisinopril persistent vegetative state, she would not want her life prolonged artificially. It specifically states she would not want PEG tube placement for artificial nutrition. They state the patient has designated her health care surrogate form and POA. Copies of documentation have been requested. . Family/friends goals: Family is considering transitioning to comfort focused care. Hospice consult pending. . Ethical and Legal Issues No known ethical or legal issues impacting care at this time. . Physical Exam Vital Signs Date Time Temp Pulse Resp B/P (MAP) Pulse Ox O2 Delivery O2 Flow Rate FiO2 05/24/17 12:00 99.0 87 18 148/81 (103) 96 05/24/17 11:00 90 05/24/17 08:00 97.6 84 16 150/84 (106) 96 05/24/17 05:16 98.0 98 18 142/80 (100) 05/24/17 03:56 99.0 89 18 167/89 (115) 93 05/24/17 02:03 95 147/81 (103) 95 05/23/17 23:46 99.0 95 20 187/90 (122) 95 05/23/17 20:00 95 05/23/17 16:20 97.7 86 20 145/91 (109) 94 . 05/24/17 05/25/17 18:59 06:59 Intake Total 400 ml Balance 400 ml IV Total 400 ml . Exam CONSTITUTIONAL/GENERAL: This is a frail, chronically ill appearing elderly female in no apparent distress. TUBES/LINES/DRAINS: PIV 1, nasal cannula, Hayes catheter SKIN: Ecchymoses on upper extremities. No wounds seen anteriorly. Skin temperature appropriate. Not diaphoretic. HEAD: Atraumatic. Normocephalic. EYES: Pupils equal and round and reactive. No scleral icterus. No injection or drainage. Fundi not examined. ENT: Hearing grossly normal. Nose without bleeding or purulent drainage. Mucus membranes dry NECK: Trachea midline. Supple, nontender. No palpable thyroid enlargement or nodularity. CARDIOVASCULAR: Regular rate and rhythm without murmurs, gallops, or rubs. No JVD. Peripheral pulses symmetric. RESPIRATORY/CHEST: Symmetric, unlabored respirations. Clear to auscultation. Breath sounds equal bilaterally. No wheezes, rales, or rhonchi. GASTROINTESTINAL: Abdomen soft, non-tender, nondistended. GENITOURINARY: Without palpable bladder distension. Hayes catheter in place. MUSCULOSKELETAL: Extremities without clubbing, cyanosis, or edema. LYMPHATICS: No palpable cervical or supraclavicular adenopathy. NEUROLOGICAL: Awake, confused. Does not follow commands. Nonsensical speech PSYCHIATRIC: No obvious anxiety/depression on exam. + Visual hallucinations . Diagnostic Tests Laboratory Laboratory Tests Test 05/22/17 09:00 05/23/17 10:00 05/24/17 07:00 Creatinine 0.57 MG/DL (0.50-1.00) 0.92 MG/DL (0.50-1.00) 0.75 MG/DL (0.50-1.00) Estimat Glomerular Filtration Rate 105 ML/MIN (>89) 61 ML/MIN (>89) 77 ML/MIN (>89) White Blood Count 21.8 TH/MM3 (4.0-11.0) Red Blood Count 3.51 MIL/MM3 (4.00-5.30) Hemoglobin 11.3 GM/DL (11.6-15.3) Hematocrit 35.2 % (35.0-46.0) Mean Corpuscular Volume 100.3 FL (80.0-100.0) Mean Corpuscular Hemoglobin 32.3 PG (27.0-34.0) Mean Corpuscular Hemoglobin Concent 32.2 % (32.0-36.0) Red Cell Distribution Width 12.5 % (11.6-17.2) Platelet Count 426 TH/MM3 (150-450) Mean Platelet Volume 8.2 FL (7.0-11.0) Neutrophils (%) (Auto) 89.0 % (16.0-70.0) Lymphocytes (%) (Auto) 2.8 % (9.0-44.0) Monocytes (%) (Auto) 8.0 % (0.0-8.0) Eosinophils (%) (Auto) 0.0 % (0.0-4.0) Basophils (%) (Auto) 0.2 % (0.0-2.0) Neutrophils # (Auto) 19.4 TH/MM3 (1.8-7.7) Lymphocytes # (Auto) 0.6 TH/MM3 (1.0-4.8) Monocytes # (Auto) 1.7 TH/MM3 (0-0.9) Eosinophils # (Auto) 0.0 TH/MM3 (0-0.4) Basophils # (Auto) 0.0 TH/MM3 (0-0.2) CBC Comment DIFF FINAL Differential Comment Blood Urea Nitrogen 18 MG/DL (7-18) 15 MG/DL (7-18) Random Glucose 91 MG/DL (74-106) 112 MG/DL (74-106) Calcium Level 9.0 MG/DL (8.5-10.1) 8.3 MG/DL (8.5-10.1) Sodium Level 150 MEQ/L (136-145) 151 MEQ/L (136-145) Potassium Level 2.1 MEQ/L (3.5-5.1) 2.2 MEQ/L (3.5-5.1) Chloride Level 108 MEQ/L (98-107) 108 MEQ/L (98-107) Carbon Dioxide Level 33.3 MEQ/L (21.0-32.0) 34.3 MEQ/L (21.0-32.0) Anion Gap 9 MEQ/L (5-15) 9 MEQ/L (5-15) Magnesium Level 2.0 MG/DL (1.5-2.5) . Result Diagram: 05/23/17 1000 05/24/17 0700 Imaging Last 72 hours Impressions Chest X-Ray 05/24/17 0000 Signed Impressions: Service Date/Time: May 11:33 - CONCLUSION: 1. Minimal stable bibasilar airspace disease. 2. Note acute abnormality or significant interval change. Dav Amado MD . Procedures 05/11/17: Intubation 05/11/17: NGT /09/16: MRCP followed by EGD Patient/Family Conference Present at Family Conference: Attempted to contact patient's daughters. Messages left on voice mail, awaiting return phone calls. . Issues Discussed: . Assessment and Plan Disease Oriented Problem List: (1) COPD (chronic obstructive pulmonary disease) (2) History of pneumonia (3) History of encephalitis (4) Breast cancer Comment: Status post radical mastectomy with breast reconstruction and chemotherapy (5) Peptic ulcer disease Comment: Status post partial gastrectomy and vagotomy . (6) Chronic pelvic pain in female (7) Severe sepsis (8) Acute respiratory failure (9) Acute encephalopathy (10) Acute kidney injury (11) Rhabdomyolysis Symptom Scale: (1) Encephalopathy (2) Pain (3) Malnutrition Pertinent Non-Medical Issues Psychosocial: Patient is originally from [place]. 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 They were for 14 years before getting . Together they had 2 daughters, June and Laly. June lives in [place] and is in the process of moving to [place]. Laly lives in [place]. Per June, the patient starting drinking after she was born and had ongoing problems with substance abuse and odd behaviors. She states her mother has made many poor lifestyle choices and not taking care of herself. Patient currently lives alone. She has been declining and has relied on her neighbor (Mickey) who has helped her with shopping, laundry and finances. The patient's daughter (June) alleges the patient's neighbor has been using her debit card in the past 2 weeks and she was hospitalized. Spiritual: Sikhism debora Legal: Patient's daughters indicate written advanced directives have been completed; please of documentation has been requested. Per [place] statutes, in the absence of written advanced directives healthcare proxy decision making would fall to the patient's 2 adult daughters. Ethical issues impacting care: No known ethical issues impacting care at this time. . Important Contacts June Restrepo, daughter: [phone] Theresa Paz, daughter: [phone] . Prognosis Patient is a 71-year-old female who was recently admitted for management of acute toxic metabolic encephalopathy, acute respiratory failure, bilateral pneumonia/aspiration, probable distal biliary obstruction, acute kidney injury with electrolyte imbalances and rhabdomyolysis. She has a long history of polysubstance abuse and behavioral issues. Patient is extremely cachectic, severely deconditioned. She is not eating and has previously verbalized that she would not want her life prolonged artificially including the administration of artificial nutrition. Given the patient's advanced age, multiple comorbid conditions, severe deconditioning and style choices she is at high risk for ongoing setbacks and complications even if medical treatment goals remained aggressive. . Code Status: Full Code Plan * FULL CODE * Decision-making: Per [place] statutes, in the absence of written advanced directives healthcare proxy decision-making falls to the patient's 2 adult children. * Goals: Goals remain aggressive pending conversation with patient's family, although patient's family has indicated they are considering transitioning to comfort focus care. * Discussed patient with Dr. Hutchinson * Attempt to contact both of the patient's daughters via telephone. Palliative care contact information was provided, awaiting return phone calls. Thank you for the opportunity to participate in the care of Ms. Stoner. Attestation To help prompt me to consider important information that might be impacting today's encounter and assessment, information from prior notes written by myself or my colleagues may have been "brought forward" into today's note. My signature on this note, however, is an attestation that I personally performed the exam, history, and/or decision-making noted today, and, unless otherwise indicated, the interactions with patient, family, and staff as well as the review of records all occurred today. I also attest that the listed assessment and stated plan reflect my best clinical judgment today based on the combination of historical information, prior notes, and today's exam/ interactions. When time spent is documented, it refers only to time spent today by the signer, or if indicated, combined time spent today by collaborating physician/nurse practitioner. . Frances Scherer May 24, 2017 14:52
[2017-05-24] MEDS ORDERED: POTASSIUM CHLORIDE 25 MEQ EFFERVESCENT TAB PO ONE (22:00)
[2017-05-25] VITALS (8 sets, daily range): BP systolic 138–166; BP diastolic 77–93; PULSE 92–109; RESP 18–22; TEMP 95.6–99.3; O2SAT 90–100
[2017-05-25] MEDS: POTASSIUM CHLOR 20 MEQ PREMIX 100 ML IV SCH (01:16)
[2017-05-25] MEDS: D5-1/2 NS + KCL 20 MEQ INJ 1,000 ML IV SCH ×2 (01:16→08:53)
[2017-05-25] MEDS: CHLORHEXIDINE GLUCONATE 2 % 1 PACK (2 CLOTHS) TOP SCH (03:35)
[2017-05-25] MEDS: CHLORHEXIDINE 0.12% (ORAL KIT) 15 ML CUP MT SCH ×2 (08:00→21:20)
[2017-05-25] MEDS: BENEPROTEIN POWDER 1 PACK G-TUBE SCH ×3 (08:47→11:59)
[2017-05-25] MEDS: MUPIROCIN 2% OINT 1 APPLIC/GM SYR NASAL SCH ×2 (08:47→21:18)
[2017-05-25] MEDS: PANTOPRAZOLE SODIUM 40 MG VIAL IV SCH (08:50)
[2017-05-25] MEDS: SULFAMETHOXAZOLE-TRIMETHOPRIM 400-80 MG TAB PO SCH ×2 (08:53→21:18)
[2017-05-25] MEDS: LISINOPRIL 20 MG TAB PO SCH (08:53)
[2017-05-25] MEDS: SODIUM CHLOR 0.9% 1000 ML INJ 1,000 ML IV SCH (08:53)
[2017-05-25] MEDS: METOPROLOL TARTRATE 25 MG TAB PO SCH ×2 (08:53→21:19)
[2017-05-25] MEDS: predniSONE 10 MG TAB PO SCH (08:53)
[2017-05-25] MEDS: BUDESONIDE-FORMOTEROL 160/4.5 MCG INHALER INH SCH ×2 (08:56→21:19)
[2017-05-25 10:08] LABS: AUTOMATED NEUTROPHIL # 14.7 TH/MM3 (1.8-7.7); BASOPHIL % 0.2 % (0.0-2.0); HEMO FLAGS DIFF FINAL; LYMPH % 5.4 % (9.0-44.0); LYMPHOCYTE # 0.9 TH/MM3 (1.0-4.8); MEAN CELL VOLUME 101.4 FL (80.0-100.0); MEAN CORPUSCULAR HEMOGLOBIN 32.6 PG (27.0-34.0); MEAN CORPUSCULAR HGB CONC 32.1 % (32.0-36.0); MONO % 7.9 % (0.0-8.0); NEUT % 86.5 % (16.0-70.0); PLATELET COUNT 456 TH/MM3 (150-450); RED BLOOD COUNT 3.75 MIL/MM3 (4.00-5.30); RED CELL DISTRIBUTION WIDTH 13.1 % (11.6-17.2); WHITE BLOOD COUNT 16.9 TH/MM3 (4.0-11.0)
[2017-05-25 10:47] LABS: BICARBONATE 35.8 MEQ/L (21.0-32.0)
[2017-05-25 10:50] LABS: POTASSIUM 2.4 MEQ/L (3.5-5.1)
[2017-05-25] MEDS ORDERED: MAGNESIUM SULFATE 1 GM PREMIX 100 ML IV ONE (11:45)
--- NOTE | 2017-05-25 11:54 | HHI.PR ---
Subjective Remarks Follow-up encephalopathy 05/21/17-patient seen and examined, questionable catatonia; stiffness and rigidity; and discussed with daughter June at bedside who thinks that her mom's mentation is getting worse. Patient not following commands however alert 05/22/17-patient seen and examined, appears calmer today with less body rigidity and stiffness. However does not follow command. Per nurse's report, she was able to recognize her neighbor who came to visit today 05/23/17-patient seen and examined, no change. She is alert however does not follow commands. She does not appear agitated. Vitals stable. 05/24/17-patient seen and examined, alert however does not follow command. Afebrile. Potassium low. Worsening leukocytosis. Daughter by the bedside and requesting palliative care consult 05/25/17-patient seen and examined, agitated however alert but does not follow commands. Case discussed with Dr. Gunderson and requested that patient be started on Valium 5 mg twice a day, Objective Vitals Vital Signs Date Time Temp Pulse Resp B/P (MAP) Pulse Ox O2 Delivery O2 Flow Rate FiO2 05/25/17 09:38 97 Nasal Cannula 2.00 05/25/17 08:54 99.3 96 22 166/92 (116) 93 05/25/17 04:00 98.7 92 18 159/77 (104) 90 05/25/17 00:00 98.6 109 20 157/83 (107) 96 05/24/17 20:00 97.9 100 19 168/77 (107) 94 05/24/17 17:30 98.8 101 18 145/84 (104) 94 05/24/17 16:00 98.7 97 18 172/79 (110) 95 05/24/17 12:00 99.0 87 18 148/81 (103) 96 I/O 05/24/17 05/24/17 05/24/17 05/25/17 05/25/17 05/25/17 07:00 15:00 23:00 07:00 15:00 23:00 Intake Total 880 ml 1036 ml Output Total 900 ml 250 ml 200 ml Balance -20 ml 786 ml -200 ml Intake Oral 480 ml IV Total 400 ml 1036 ml Output Urine Total 900 ml 250 ml 200 ml # Bowel Movements 1 Result Diagram: 05/25/1783705/25/17837 Objective Remarks GENERAL: AND SKIN: Warm and dry. HEAD: Normocephalic. EYES: No scleral icterus. No injection or drainage. NECK: Supple, trachea midline. No JVD or lymphadenopathy. CARDIOVASCULAR: Regular rate and rhythm without murmurs, gallops, or rubs. RESPIRATORY: Breath sounds equal bilaterally. No accessory muscle use. GASTROINTESTINAL: Abdomen soft, non-tender, nondistended. MUSCULOSKELETAL: No cyanosis, or edema. BACK: Nontender without obvious deformity. No CVA tenderness. A/P Problem List: (1) Acute encephalopathy ICD Code: G93.40 - Encephalopathy, unspecified Status: Acute (2) Acute respiratory failure ICD Code: J96.00 - Acute respiratory failure, unspecified whether with hypoxia or hypercapnia Status: Acute (3) Severe sepsis ICD Code: A41.9 - Sepsis, unspecified organism; R65.20 - Severe sepsis without septic shock Status: Acute (4) Acute kidney injury ICD Code: N17.9 - Acute kidney failure, unspecified Status: Acute (5) Acute hyperkalemia ICD Code: E87.5 - Hyperkalemia Status: Acute (6) Probable pneumonia Status: Acute (7) Probable CBD obstruction Status: Acute (8) Leukocytosis ICD Code: D72.829 - Elevated white blood cell count, unspecified Status: Acute (9) Rhabdomyolysis ICD Code: M62.82 - Rhabdomyolysis Status: Acute (10) Dehydration ICD Code: E86.0 - Dehydration Status: Resolved (11) Hyponatremia ICD Code: E87.1 - Hypo-osmolality and hyponatremia Status: Resolved Assessment and Plan 71 year-old female with Acute toxic metabolic encephalopathy Probable benzodiazepine overdose Probable prescription drug abuse -Initial CT scan was negative for any acute findings. -B12, TSH Ammonia normal, and EEG normal -Neurologist and psychiatrist were consulted. At the moment neurologist did not recommend further treatment unless EEG was abnormal. -Psychiatrist ff Chronic left-sided spasticity Start Valium 5 mg twice a day Hypernatremia Continue with D5 water Hypokalemia Replace electrolyte and monitor Will give magnesium oxide 1 g IV 1 now Acute respiratory failure-resolved Bilateral pneumonia/aspiration (MRSA, serratia) Tobacco abuse, possible COPD - Extubated 05/16, respiratory status faustin she is doing well. DuoNeb scheduled and when necessary - CT chest shows mild bilateral infiltrates pneumonia versus aspiration - Completed broad-spectrum with Zosyn and Zyvox -bilingual branch manager ff. Hypertension -Metoprolol and lisinopril. -Vasotec when necessary MRCP shows probable distal CBD stones - PTHC unsuccessful, no further procedures planned by GI IR at this time - CT abdomen pelvis shows dilated biliary tree, dilated main pancreatic duct, and dilated gallbladder suggestive of distal gallbladder obstruction - MRCP with probable distal CBD stones - Gastroenterology unable to complete ERCP, remains to find ampulla due to surgical changes - IV pantoprazole Acute kidney injury- secondary to dehydration Rhabdomyolysis-resolved Severe sepsis-Resolved Pre hospital aspiration pneumonitis versus pneumonia (MRSA, serratia) Probable common biliary duct obstruction - Completed Zosyn and Zyvox - Urine for Legionella and pneumococcal antigen neg - Sputum cx 05/13 MRSA and Serratia Leukocytosis Continue to monitor DVT prophylaxis Bilateral lower extremity SCDs. SQ Lovenox, Protonix Problem Qualifiers (1) Leukocytosis: (2) Rhabdomyolysis: Molina Hutchinson MD May 25, 2017 11:54
[2017-05-25] MEDS: DIAZEPAM 5 MG TAB PO SCH ×2 (12:12→21:19)
--- NOTE | 2017-05-25 16:05 | HHI.HCPN ---
Reason for visit a. To assist with evaluation and management of symptoms including: Encephalopathy, debility, decreased appetite b. To assist medical decision maker(s) with: better understanding of current medical conditions; weighing benefits/burdens of medical treatment options; making medical treatment decisions. . Subjective/Interval History Ms. Stoner is a 71-year-old female who was admitted to the ICU on 05/11/17 for further evaluation and medical management of acute toxic metabolic encephalopathy, acute respiratory failure, bilateral pneumonia/aspiration, probable distal biliary obstruction, acute kidney injury with electrolyte imbalances and rhabdomyolysis. Patient seen and assessed in room 1516; patient daughter was also present. Respirations are unlabored; oxygen saturations stable on 2 L via nasal cannula. Chest x-ray on 05/24/17 showing minimal stable bibasilar airspace disease. Afebrile. Persistent leukocytosis. Patient remains on oral antibiotics. Lab work 05/25/17: = WBC: 16.9, hemoglobin 12.2, hematocrit 38.0, platelets 456, neutrophils 86.5% = Sodium: 152, potassium 2.4, chloride 110, carbon dioxide 35.8, glucose 139, calcium 8.3 = BUN: 13, creatinine 0.67, GFR 87 Patient is cachectic with significant deconditioning. She is bedbound, dependent on all day ADLs. Having ongoing encephalopathy with intermittent agitation, visual hallucinations. Currently on Xanax 0.25 mg PO q8 hours PRN for anxiety. Patient was additionally started on diazepam 5 mg PO q12 hours today. She is not eating, taking only sips of fluid. Patient has previously verbalized that she would not want her life prolonged artificially including the administration of artificial nutrition. Given the patient's advanced age, multiple comorbid conditions, severe deconditioning and lifestyle choices her overall prognosis remains poor. The family is considering transitioning to comfort focused goals and hospice has been consulted. . Advance Directives Advance Directive Specifics Documented care wishes: Patient's daughter's state the patient has completed a living will that states that if she were to have a terminal condition, end-stage condition on lisinopril persistent vegetative state, she would not want her life prolonged artificially. It specifically states she would not want PEG tube placement for artificial nutrition. They state the patient has designated her health care surrogate form and POA. Copies of documentation have been requested. . Significant change in goals: Hospice consult pending . Objective Vital Signs Date Time Temp Pulse Resp B/P (MAP) Pulse Ox O2 Delivery O2 Flow Rate FiO2 05/25/17 14:01 101 05/25/17 11:59 98.8 109 22 148/93 (111) 93 05/25/17 09:38 97 Nasal Cannula 2.00 05/25/17 08:54 99.3 96 22 166/92 (116) 93 05/25/17 04:00 98.7 92 18 159/77 (104) 90 05/25/17 00:00 98.6 109 20 157/83 (107) 96 05/24/17 20:00 97.9 100 19 168/77 (107) 94 05/24/17 17:30 98.8 101 18 145/84 (104) 94 05/24/17 16:00 98.7 97 18 172/79 (110) 95 Intake & Output 05/25/17 05/25/17 07:00 19:00 Intake Total 100 ml Output Total 450 ml Balance -450 ml 100 ml IV Total 100 ml Output Urine Total 450 ml . Physical Exam CONSTITUTIONAL/GENERAL: This is a frail, chronically ill appearing elderly female who is having intermittent agitation and visual hallucinations. TUBES/LINES/DRAINS: PIV 1, nasal cannula, Hayes catheter SKIN: Ecchymoses on upper extremities. Skin is fragile HEAD: Atraumatic. Normocephalic. EYES: Pupils equal and round and reactive. ENT: Hearing grossly normal. Mucus membranes dry NECK: Trachea midline. CARDIOVASCULAR: Regular rate and rhythm without murmurs, gallops, or rubs. No JVD. Peripheral pulses symmetric. RESPIRATORY/CHEST: Symmetric, unlabored respirations. Clear to auscultation. Breath sounds equal bilaterally. GASTROINTESTINAL: Abdomen soft, non-tender, nondistended. GENITOURINARY: Without palpable bladder distension. Hayes catheter in place. MUSCULOSKELETAL: Extremities without clubbing, cyanosis, or edema. LYMPHATICS: No palpable cervical or supraclavicular adenopathy. NEUROLOGICAL: Awake, confused. Does not follow commands. Nonsensical speech PSYCHIATRIC: No obvious anxiety/depression on exam. + Visual hallucinations . Diagnostic Tests Laboratory Laboratory Tests Test 05/23/17 10:00 05/24/17 07:00 05/24/17 19:15 05/25/17 08:38 White Blood Count 21.8 TH/MM3 (4.0-11.0) 16.9 TH/MM3 (4.0-11.0) Red Blood Count 3.51 MIL/MM3 (4.00-5.30) 3.75 MIL/MM3 (4.00-5.30) Hemoglobin 11.3 GM/DL (11.6-15.3) 12.2 GM/DL (11.6-15.3) Hematocrit 35.2 % (35.0-46.0) 38.0 % (35.0-46.0) Mean Corpuscular Volume 100.3 FL (80.0-100.0) 101.4 FL (80.0-100.0) Mean Corpuscular Hemoglobin 32.3 PG (27.0-34.0) 32.6 PG (27.0-34.0) Mean Corpuscular Hemoglobin Concent 32.2 % (32.0-36.0) 32.1 % (32.0-36.0) Red Cell Distribution Width 12.5 % (11.6-17.2) 13.1 % (11.6-17.2) Platelet Count 426 TH/MM3 (150-450) 456 TH/MM3 (150-450) Mean Platelet Volume 8.2 FL (7.0-11.0) 8.7 FL (7.0-11.0) Neutrophils (%) (Auto) 89.0 % (16.0-70.0) 86.5 % (16.0-70.0) Lymphocytes (%) (Auto) 2.8 % (9.0-44.0) 5.4 % (9.0-44.0) Monocytes (%) (Auto) 8.0 % (0.0-8.0) 7.9 % (0.0-8.0) Eosinophils (%) (Auto) 0.0 % (0.0-4.0) 0.0 % (0.0-4.0) Basophils (%) (Auto) 0.2 % (0.0-2.0) 0.2 % (0.0-2.0) Neutrophils # (Auto) 19.4 TH/MM3 (1.8-7.7) 14.7 TH/MM3 (1.8-7.7) Lymphocytes # (Auto) 0.6 TH/MM3 (1.0-4.8) 0.9 TH/MM3 (1.0-4.8) Monocytes # (Auto) 1.7 TH/MM3 (0-0.9) 1.3 TH/MM3 (0-0.9) Eosinophils # (Auto) 0.0 TH/MM3 (0-0.4) 0.0 TH/MM3 (0-0.4) Basophils # (Auto) 0.0 TH/MM3 (0-0.2) 0.0 TH/MM3 (0-0.2) CBC Comment DIFF FINAL DIFF FINAL Differential Comment Blood Urea Nitrogen 18 MG/DL (7-18) 15 MG/DL (7-18) 13 MG/DL (7-18) Creatinine 0.92 MG/DL (0.50-1.00) 0.75 MG/DL (0.50-1.00) 0.67 MG/DL (0.50-1.00) Random Glucose 91 MG/DL (74-106) 112 MG/DL (74-106) 139 MG/DL (74-106) Calcium Level 9.0 MG/DL (8.5-10.1) 8.3 MG/DL (8.5-10.1) 8.3 MG/DL (8.5-10.1) Sodium Level 150 MEQ/L (136-145) 151 MEQ/L (136-145) 152 MEQ/L (136-145) Potassium Level 2.1 MEQ/L (3.5-5.1) 2.2 MEQ/L (3.5-5.1) 2.3 MEQ/L (3.5-5.1) 2.4 MEQ/L (3.5-5.1) Chloride Level 108 MEQ/L (98-107) 108 MEQ/L (98-107) 110 MEQ/L (98-107) Carbon Dioxide Level 33.3 MEQ/L (21.0-32.0) 34.3 MEQ/L (21.0-32.0) 35.8 MEQ/L (21.0-32.0) Anion Gap 9 MEQ/L (5-15) 9 MEQ/L (5-15) 6 MEQ/L (5-15) Estimat Glomerular Filtration Rate 61 ML/MIN (>89) 77 ML/MIN (>89) 87 ML/MIN (>89) Magnesium Level 2.0 MG/DL (1.5-2.5) . Result Diagram: 05/25/17 0838 05/25/17 0838 Imaging Last 72 hours Impressions Chest X-Ray 05/24/17 0000 Signed Impressions: Service Date/Time: May 11:33 - CONCLUSION: 1. Minimal stable bibasilar airspace disease. 2. Note acute abnormality or significant interval change. Dav Amado MD . Procedures 05/11/17: Intubation 05/11/17: NGT 05/12/17: MRCP followed by EGD Assessment and Plan Disease Oriented Problem List: (1) COPD (chronic obstructive pulmonary disease) (2) History of pneumonia (3) History of encephalitis (4) Breast cancer Comment: Status post radical mastectomy with breast reconstruction and chemotherapy (5) Peptic ulcer disease Comment: Status post partial gastrectomy and vagotomy . (6) Chronic pelvic pain in female (7) Severe sepsis (8) Acute respiratory failure (9) Acute encephalopathy (10) Acute kidney injury (11) Rhabdomyolysis Symptom Scale: (1) Encephalopathy (2) Decrease in appetite (3) Debility Pertinent Non-Medical Issues Psychosocial: Patient is originally from [place]. 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 They were for 14 years before getting . Together they had 2 daughters, June and Laly. June lives in [place] and is in the process of moving to [place]. Laly lives in [place]. Per June, the patient starting drinking after she was born and had ongoing problems with substance abuse and odd behaviors. She states her mother has made many poor lifestyle choices and not taking care of herself. Patient currently lives alone. She has been declining and has relied on her neighbor (Mickey) who has helped her with shopping, laundry and finances. The patient's daughter (June) alleges the patient's neighbor has been using her debit card in the past 2 weeks and she was hospitalized. Spiritual: Uatsdin debora Legal: Patient's daughters indicate written advanced directives have been completed; please of documentation has been requested. Per [place] statutes, in the absence of written advanced directives healthcare proxy decision making would fall to the patient's 2 adult daughters. Ethical issues impacting care: No known ethical issues impacting care at this time. . Important Contacts June Restrepo, daughter: [phone] Theresa Paz, daughter: [phone] . Prognosis Patient is a 71-year-old female who was recently admitted for management of acute toxic metabolic encephalopathy, acute respiratory failure, bilateral pneumonia/aspiration, probable distal biliary obstruction, acute kidney injury with electrolyte imbalances and rhabdomyolysis. She has a long history of polysubstance abuse and behavioral issues. Patient is extremely cachectic, severely deconditioned. She is not eating and has previously verbalized that she would not want her life prolonged artificially including the administration of artificial nutrition. Given the patient's advanced age, multiple comorbid conditions, severe deconditioning and style choices she is at high risk for ongoing setbacks and complications even if medical treatment goals remained aggressive. . Code Status: Full Code Plan * NO CODE- DNR/DNI * Decision-making: Patient's daughter, June, states she is designated as the health care surrogate decision maker but no documentation has been provided at this point. Per [place] statutes, in the absence of written advanced directives healthcare proxy decision-making falls to the patient's 2 adult children. * Patient's daughter's state the patient has completed a living will that states that if she were to have a terminal condition, end-stage condition on lisinopril persistent vegetative state, she would not want her life prolonged artificially. It specifically states she would not want PEG tube placement for artificial nutrition. They state the patient has designated her health care surrogate form and POA. Copies of documentation have been requested. * Family is considering transitioning to comfort focused care; hospice consult pending. Family states they want the patient to be comfortable even if it means she may be more sedated. * Discussed patient with Dr. Hutchinson who supports the family's decision to transition to comfort focused care. * Report given to Zeina in hospice intake. * Manager Msw consult placed per family's request * Symptom management-encephalopathy/decreased appetite/debility: Patient is cachectic with significant deconditioning. She is bedbound and completely dependent. Having ongoing encephalopathy with intermittent agitation, visual hallucinations. Currently on Xanax 0.25 mg PO q8 hours PRN for anxiety. Patient was additionally started on diazepam 5 mg PO q12 hours today. Patient is not eating and taking only sips of fluid. She has previously verbalized and completed written advanced directives that state she would not want PEG tube placement/artificial nutrition or any other interventions that would prolong her life artificially. Given patient's advanced age, multiple comorbid conditions, severe deconditioning and lifestyle choices, her overall prognosis is poor. Her life expectancy is <6 months. * Palliative care contact information was provided to patient's 2 daughters. * Spoke with the patient's daughter, Laly, at length via telephone this morning to discuss the patient's clinical condition and overall prognosis. Met with patient's other daughter, June, who is a nurse later this afternoon. Attestation To help prompt me to consider important information that might be impacting today's encounter and assessment, information from prior notes written by myself or my colleagues may have been "brought forward" into today's note. My signature on this note, however, is an attestation that I personally performed the exam, history, and/or decision-making noted today, and, unless otherwise indicated, the interactions with patient, family, and staff as well as the review of records all occurred today. I also attest that the listed assessment and stated plan reflect my best clinical judgment today based on the combination of historical information, prior notes, and today's exam/ interactions. When time spent is documented, it refers only to time spent today by the signer, or if indicated, combined time spent today by collaborating physician/nurse practitioner. . Frances Scherer May 25, 2017 16:05
--- NOTE | 2017-05-25 19:35 | HHI.PR ---
Subjective Remarks Remains and on O2 at 3 L. Confused .Poor intake Taking some po diet.But not adequate. Objective Vital Signs Date Time Temp Pulse Resp B/P (MAP) Pulse Ox O2 Delivery O2 Flow Rate FiO2 05/25/17 16:59 98.8 99 22 138/88 (105) 94 05/25/17 14:01 101 05/25/17 11:59 98.8 109 22 148/93 (111) 93 05/25/17 09:38 97 Nasal Cannula 2.00 05/25/17 08:54 99.3 96 22 166/92 (116) 93 05/25/17 04:00 98.7 92 18 159/77 (104) 90 05/25/17 00:00 98.6 109 20 157/83 (107) 96 05/24/17 20:00 97.9 100 19 168/77 (107) 94 I/O 05/24/17 05/24/17 05/24/17 05/25/17 05/25/17 05/25/17 07:00 15:00 23:00 07:00 15:00 23:00 Intake Total 880 ml 1036 ml 100 ml 756 ml Output Total 900 ml 250 ml 200 ml 525 ml Balance -20 ml 786 ml -200 ml 100 ml 231 ml Intake Oral 480 ml IV Total 400 ml 1036 ml 100 ml 756 ml Output Urine Total 900 ml 250 ml 200 ml 525 ml # Bowel Movements 1 Result Diagram: 05/25/1738 05/25/17837 Objective Remarks GENERAL: This is a thinly built elderly lady on O2 .Awake no distress HEENT: Head normocephalic. Pupils reactive. Sclerae are clear. Tongue is moist and Throat clear NECK: Supple without venous distension or thyromegaly. CHEST: Distant breath sounds with occasional wheezes in the upper lung mccabe. No crackles. HEART: The heart sounds are regular S1-S2. No murmur. ABDOMEN: Soft and protuberant without masses. No organomegaly or tenderness. Bowel sounds are active. EXTREMITIES: Moves all. No edema. NEUROLOGIC: Reflexes 1+. Confused. SKIN: Dry . Assessment and Plan Assessment and Plan IMPRESSION 1. Acute respiratory failure resolving. 2. Hypoxic encephalopathy, resolving. 3. Hypokalemia 4. COPD with emphysema 5. History of breast cancer 6. Probable bile duct obstruction. 7. Psychosis/ Encephalopathy 8. Resolved pneumonia Plan : 1. Cont o2 2 L. 2. Nebs qid , duoneb. 3. Cont Antibiotics Bactrim DS 4. IV Hydration, Replace Potassium 5. CBC,BMP , in am 6. Soft diet.Possible feeding tube. 7. Xanax .25 mg tid prn 8. Prednisone 10 mg daily 9. D/W Dr Hutchinson. Rosalia Nelson MD May 25, 2017 19:35
[2017-05-26] VITALS (7 sets, daily range): BP systolic 126–160; BP diastolic 62–91; PULSE 84–106; RESP 18–21; TEMP 96.7–98.9; O2SAT 95–100
[2017-05-26] MEDS: SODIUM CHLOR 0.9% 1000 ML INJ 1,000 ML IV SCH (02:33)
[2017-05-26] MEDS: D5-1/2 NS + KCL 20 MEQ INJ 1,000 ML IV SCH ×2 (05:20→23:35)
[2017-05-26] MEDS: CHLORHEXIDINE GLUCONATE 2 % 1 PACK (2 CLOTHS) TOP SCH (05:45)
[2017-05-26] MEDS: CHLORHEXIDINE 0.12% (ORAL KIT) 15 ML CUP MT SCH ×2 (08:00→20:00)
[2017-05-26 08:45] LABS: BICARBONATE 34.8 MEQ/L (21.0-32.0)
[2017-05-26 08:53] LABS: POTASSIUM 2.3 MEQ/L (3.5-5.1)
[2017-05-26] MEDS: BUDESONIDE-FORMOTEROL 160/4.5 MCG INHALER INH SCH ×2 (09:00→21:03)
[2017-05-26] MEDS: BENEPROTEIN POWDER 1 PACK G-TUBE SCH ×3 (09:00→18:00)
[2017-05-26] MEDS: PANTOPRAZOLE SODIUM 40 MG VIAL IV SCH (09:29)
[2017-05-26] MEDS: MUPIROCIN 2% OINT 1 APPLIC/GM SYR NASAL SCH ×2 (09:29→21:02)
[2017-05-26] MEDS: predniSONE 10 MG TAB PO SCH (09:30)
[2017-05-26] MEDS: DIAZEPAM 5 MG TAB PO SCH ×2 (09:30→21:01)
[2017-05-26] MEDS: METOPROLOL TARTRATE 25 MG TAB PO SCH ×2 (09:30→21:02)
[2017-05-26] MEDS: LISINOPRIL 20 MG TAB PO SCH (09:30)
[2017-05-26] MEDS: SULFAMETHOXAZOLE-TRIMETHOPRIM 400-80 MG TAB PO SCH ×2 (09:30→21:01)
[2017-05-26] MEDS: ACETAMINOPHEN 325 MG TAB PO PRN (11:41)
--- NOTE | 2017-05-26 11:47 | HHI.PR ---
Subjective Remarks Follow-up encephalopathy 05/21/17-patient seen and examined, questionable catatonia; stiffness and rigidity; and discussed with daughter June at bedside who thinks that her mom's mentation is getting worse. Patient not following commands however alert 05/22/17-patient seen and examined, appears calmer today with less body rigidity and stiffness. However does not follow command. Per nurse's report, she was able to recognize her neighbor who came to visit today 05/23/17-patient seen and examined, no change. She is alert however does not follow commands. She does not appear agitated. Vitals stable. 05/24/17-patient seen and examined, alert however does not follow command. Afebrile. Potassium low. Worsening leukocytosis. Daughter by the bedside and requesting palliative care consult 05/25/17-patient seen and examined, agitated however alert but does not follow commands. Case discussed with Dr. Gunderson and requested that patient be started on Valium 5 mg twice a day, 05/26/17-patient seen and examined, alert and somehow patient oriented to self and was able to say [place] as the place where she is currently in. Objective Vitals Vital Signs Date Time Temp Pulse Resp B/P (MAP) Pulse Ox O2 Delivery O2 Flow Rate FiO2 05/26/17 08:00 98.9 103 20 153/91 (111) 95 05/26/17 04:00 97.9 95 20 139/75 (96) 96 05/26/17 00:00 96.7 106 21 160/70 (100) 100 05/25/17 22:45 21 05/25/17 20:00 95.6 105 21 154/82 (106) 100 05/25/17 20:00 104 05/25/17 16:59 98.8 99 22 138/88 (105) 94 05/25/17 14:01 101 05/25/17 11:59 98.8 109 22 148/93 (111) 93 I/O 05/25/17 05/25/17 05/25/17 05/26/17 05/26/17 05/26/17 07:00 15:00 23:00 07:00 15:00 23:00 Intake Total 100 ml 756 ml Output Total 200 ml 525 ml Balance -200 ml 100 ml 231 ml IV Total 100 ml 756 ml Output Urine Total 200 ml 525 ml # Voids 2 Result Diagram: 05/25/17 0838 05/26/17 0713 Imaging Last Impressions Chest X-Ray 05/24/17 0000 Signed Impressions: Service Date/Time: May 11:33 - CONCLUSION: 1. Minimal stable bibasilar airspace disease. 2. Note acute abnormality or significant interval change. Dav Amado MD Head CT 05/20/17 1100 Signed Impressions: Service Date/Time: Saturday, May 20, 2017 11:42 - CONCLUSION: 1. Remote right basal ganglia infarct. 2. No change from previous study. Molina Henry MD Brain MRI 05/20/17 0000 Signed Impressions: Service Date/Time: Saturday, May 20, 2017 17:04 - CONCLUSION: Chronic atrophic and small vessel ischemic changes, old infarction on the right without any evidence for acute hemorrhage or mass effect. Halley Polk MD Cholangiopancreatography MRI 05/13/17 0000 Signed Impressions: Service Date/Time: Saturday, May 13, 2017 10:43 - CONCLUSION: 1. Intra-and extrahepatic biliary ductal dilatation again noted with several small low signal filling defects in the distal common bile duct of concern for small stones. 2. The gallbladder remains distended in appearance with no definite evidence of scoliotic lithiasis or inflammatory change. Anjum Moon MD Chest CT 05/11/17 0936 Signed Impressions: Service Date/Time: Thursday, May 11, 2017 11:35 - CONCLUSION: 1. Small bilateral noncalcified pulmonary nodules ranging in size up to 7.6 mm. 2. Left lower lobe, right middle lobe and lingular airspace disease 3. No evidence of malignant lymphadenopathy 4. Collapsed bilateral breast implants. 5. Biliary duct dilatation Ihsan Perdomo MD Abdomen/Pelvis CT 05/11/17 0936 Signed Impressions: Service Date/Time: Thursday, May 11, 2017 11:35 - CONCLUSION: 1. Dilated biliary tree and main pancreatic duct with associated distention of the gallbladder characteristic of a distal common bile duct obstructing process. 2. No evidence of a pancreatic mass 3. Post surgical clip is identified in the dequan hepatis which may be related to the patient's obstructive process. 4. Side port of nasogastric tube is in the distal esophagus. Ihsan Perdomo MD Pelvis X-Ray 05/11/17 0756 Signed Impressions: Service Date/Time: Thursday, May 11, 2017 07:58 - CONCLUSION: No definite acute bony injury Jeffery Donaldson MD Objective Remarks GENERAL: NAD SKIN: Warm and dry. HEAD: Normocephalic. EYES: No scleral icterus. No injection or drainage. NECK: Supple, trachea midline. No JVD or lymphadenopathy. CARDIOVASCULAR: Regular rate and rhythm without murmurs, gallops, or rubs. RESPIRATORY: Breath sounds equal bilaterally. No accessory muscle use. GASTROINTESTINAL: Abdomen soft, non-tender, nondistended. MUSCULOSKELETAL: No cyanosis, or edema. BACK: Nontender without obvious deformity. No CVA tenderness. A/P Problem List: (1) Acute encephalopathy ICD Code: G93.40 - Encephalopathy, unspecified Status: Acute (2) Acute respiratory failure ICD Code: J96.00 - Acute respiratory failure, unspecified whether with hypoxia or hypercapnia Status: Acute (3) Severe sepsis ICD Code: A41.9 - Sepsis, unspecified organism; R65.20 - Severe sepsis without septic shock Status: Acute (4) Acute kidney injury ICD Code: N17.9 - Acute kidney failure, unspecified Status: Acute (5) Acute hyperkalemia ICD Code: E87.5 - Hyperkalemia Status: Acute (6) Probable pneumonia Status: Acute (7) Probable CBD obstruction Status: Acute (8) Leukocytosis ICD Code: D72.829 - Elevated white blood cell count, unspecified Status: Acute (9) Rhabdomyolysis ICD Code: M62.82 - Rhabdomyolysis Status: Acute (10) Dehydration ICD Code: E86.0 - Dehydration Status: Resolved (11) Hyponatremia ICD Code: E87.1 - Hypo-osmolality and hyponatremia Status: Resolved Assessment and Plan 71 year-old female with Acute toxic metabolic encephalopathy Probable benzodiazepine overdose Probable prescription drug abuse -Initial CT scan was negative for any acute findings. -B12, TSH Ammonia normal, and EEG normal -Neurologist and psychiatrist were consulted. -Psychiatrist ff Chronic left-sided spasticity Continue Valium 5 mg twice a day Hypernatremia Continue with D5 water Hypokalemia Give potassium 75 mL every hour Acute respiratory failure-resolved Bilateral pneumonia/aspiration (MRSA, serratia) Tobacco abuse, possible COPD - DuoNeb scheduled and when necessary - CT chest shows mild bilateral infiltrates pneumonia versus aspiration - Completed broad-spectrum with Zosyn and Zyvox -investigator vice ff. Hypertension -Metoprolol and lisinopril. -Vasotec when necessary MRCP shows probable distal CBD stones - PTHC unsuccessful, no further procedures planned by GI IR at this time - CT abdomen pelvis shows dilated biliary tree, dilated main pancreatic duct, and dilated gallbladder suggestive of distal gallbladder obstruction - MRCP with probable distal CBD stones - Gastroenterology unable to complete ERCP, remains to find ampulla due to surgical changes - IV pantoprazole Acute kidney injury- secondary to dehydration Rhabdomyolysis-resolved Severe sepsis-Resolved Pre hospital aspiration pneumonitis versus pneumonia (MRSA, serratia) Probable common biliary duct obstruction - Completed Zosyn and Zyvox - Urine for Legionella and pneumococcal antigen neg - Sputum cx 05/13 MRSA and Serratia Leukocytosis Continue to monitor DVT prophylaxis Bilateral lower extremity SCDs. SQ Lovenox, Protonix Problem Qualifiers (1) Leukocytosis: (2) Rhabdomyolysis: Molina Hutchinson MD May 26, 2017 11:47
[2017-05-26] MEDS ORDERED: POTASSIUM CHLORIDE 25 MEQ EFFERVESCENT TAB PO ONE (12:00)
[2017-05-27 00:36] VITALS: BP 156/68; PULSE 110; RESP 21; TEMP 96.8; O2SAT 100
[2017-05-27] MEDS: D5-1/2 NS + KCL 20 MEQ INJ 1,000 ML IV SCH ×2 (01:31→11:30)
[2017-05-27] MEDS: CHLORHEXIDINE GLUCONATE 2 % 1 PACK (2 CLOTHS) TOP SCH (03:46)
[2017-05-27] MEDS: SULFAMETHOXAZOLE-TRIMETHOPRIM 400-80 MG TAB PO SCH (07:59)
[2017-05-27] MEDS: MUPIROCIN 2% OINT 1 APPLIC/GM SYR NASAL SCH (07:59)
[2017-05-27] MEDS: METOPROLOL TARTRATE 25 MG TAB PO SCH (07:59)
[2017-05-27] MEDS: CHLORHEXIDINE 0.12% (ORAL KIT) 15 ML CUP MT SCH (08:00)
[2017-05-27] MEDS: predniSONE 10 MG TAB PO SCH (08:00)
[2017-05-27] MEDS: DIAZEPAM 5 MG TAB PO SCH (08:00)
[2017-05-27] MEDS: LISINOPRIL 20 MG TAB PO SCH (08:00)
[2017-05-27] MEDS: BUDESONIDE-FORMOTEROL 160/4.5 MCG INHALER INH SCH (08:02)
[2017-05-27] MEDS: PANTOPRAZOLE SODIUM 40 MG VIAL IV SCH (08:02)
[2017-05-27 08:15] VITALS: BP 133/79; PULSE 94; RESP 20; TEMP 98.4; O2SAT 94
[2017-05-27] MEDS: BENEPROTEIN POWDER 1 PACK G-TUBE SCH ×2 (08:32→13:00)
--- NOTE | 2017-05-27 11:05 | HHI.PR ---
Subjective Remarks Follow-up encephalopathy 05/21/17-patient seen and examined, questionable catatonia; stiffness and rigidity; and discussed with daughter June at bedside who thinks that her mom's mentation is getting worse. Patient not following commands however alert 05/22/17-patient seen and examined, appears calmer today with less body rigidity and stiffness. However does not follow command. Per nurse's report, she was able to recognize her neighbor who came to visit today 05/23/17-patient seen and examined, no change. She is alert however does not follow commands. She does not appear agitated. Vitals stable. 05/24/17-patient seen and examined, alert however does not follow command. Afebrile. Potassium low. Worsening leukocytosis. Daughter by the bedside and requesting palliative care consult 05/25/17-patient seen and examined, agitated however alert but does not follow commands. Case discussed with Dr. Gunderson and requested that patient be started on Valium 5 mg twice a day, 05/26/17-patient seen and examined, alert and somehow patient oriented to self and was able to say [place] as the place where she is currently in. 05/27/17-patient seen and examined, no change, patient alert follows some commands very minimal at best. Able to state her name Objective Vitals Vital Signs Date Time Temp Pulse Resp B/P (MAP) Pulse Ox O2 Delivery O2 Flow Rate FiO2 05/27/17 08:15 98.4 94 20 133/79 (97) 94 05/27/17 00:36 96.8 110 21 156/68 (97) 100 05/26/17 20:35 96.7 106 21 140/62 (88) 100 05/26/17 16:00 97.5 94 19 131/85 (100) 95 05/26/17 12:00 98.5 84 18 126/73 (90) 95 I/O 05/26/17 05/26/17 05/26/17 05/27/17 05/27/17 05/27/17 06:59 14:59 22:59 06:59 14:59 22:59 Intake Total 240 ml Output Total 300 ml Balance -60 ml Intake Oral 240 ml Output Urine Total 300 ml # Voids 2 2 # Bowel Movements 2 Result Diagram: 05/25/17 0838 05/26/17 0713 Objective Remarks GENERAL: NAD SKIN: Warm and dry. HEAD: Normocephalic. EYES: No scleral icterus. No injection or drainage. NECK: Supple, trachea midline. No JVD or lymphadenopathy. CARDIOVASCULAR: Regular rate and rhythm without murmurs, gallops, or rubs. RESPIRATORY: Breath sounds equal bilaterally. No accessory muscle use. GASTROINTESTINAL: Abdomen soft, non-tender, nondistended. MUSCULOSKELETAL: No cyanosis, or edema. BACK: Nontender without obvious deformity. No CVA tenderness. A/P Problem List: (1) Acute encephalopathy ICD Code: G93.40 - Encephalopathy, unspecified Status: Acute (2) Acute respiratory failure ICD Code: J96.00 - Acute respiratory failure, unspecified whether with hypoxia or hypercapnia Status: Acute (3) Severe sepsis ICD Code: A41.9 - Sepsis, unspecified organism; R65.20 - Severe sepsis without septic shock Status: Acute (4) Acute kidney injury ICD Code: N17.9 - Acute kidney failure, unspecified Status: Acute (5) Acute hyperkalemia ICD Code: E87.5 - Hyperkalemia Status: Acute (6) Probable pneumonia Status: Acute (7) Probable CBD obstruction Status: Acute (8) Leukocytosis ICD Code: D72.829 - Elevated white blood cell count, unspecified Status: Acute (9) Rhabdomyolysis ICD Code: M62.82 - Rhabdomyolysis Status: Acute (10) Dehydration ICD Code: E86.0 - Dehydration Status: Resolved (11) Hyponatremia ICD Code: E87.1 - Hypo-osmolality and hyponatremia Status: Resolved Assessment and Plan 71 year-old female with Acute toxic metabolic encephalopathy Probable benzodiazepine overdose Probable prescription drug abuse -Initial CT scan was negative for any acute findings. -B12, TSH Ammonia normal, and EEG normal -Neurologist and psychiatrist were consulted. -Psychiatrist ff Chronic left-sided spasticity Continue Valium 5 mg twice a day Hypernatremia Continue with D5 water Hypokalemia Give potassium 75 mL every hour Acute respiratory failure-resolved Bilateral pneumonia/aspiration (MRSA, serratia) Tobacco abuse, possible COPD - DuoNeb scheduled and when necessary - CT chest shows mild bilateral infiltrates pneumonia versus aspiration - Completed broad-spectrum with Zosyn and Zyvox -golf course assistant ff. Hypertension -Metoprolol and lisinopril. -Vasotec when necessary MRCP shows probable distal CBD stones - PTHC unsuccessful, no further procedures planned by GI IR at this time - CT abdomen pelvis shows dilated biliary tree, dilated main pancreatic duct, and dilated gallbladder suggestive of distal gallbladder obstruction - MRCP with probable distal CBD stones - Gastroenterology unable to complete ERCP, remains to find ampulla due to surgical changes - IV pantoprazole Acute kidney injury- secondary to dehydration Rhabdomyolysis-resolved Severe sepsis-Resolved Pre hospital aspiration pneumonitis versus pneumonia (MRSA, serratia) Probable common biliary duct obstruction - Completed Zosyn and Zyvox - Urine for Legionella and pneumococcal antigen neg - Sputum cx 05/13 MRSA and Serratia Leukocytosis Continue to monitor DVT prophylaxis Bilateral lower extremity SCDs. SQ Lovenox, Protonix Likely discharge to hospice Problem Qualifiers (1) Leukocytosis: (2) Rhabdomyolysis: Molina Hutchinson MD May 27, 2017 11:05
[2017-05-27 11:42] LABS: AUTOMATED NEUTROPHIL # 13.8 TH/MM3 (1.8-7.7); BASOPHIL % 0.1 % (0.0-2.0); EOSINOPHIL % 0.3 % (0.0-4.0); HEMATOCRIT 35.4 % (35.0-46.0); HEMO FLAGS DIFF FINAL; LYMPH % 3.7 % (9.0-44.0); LYMPHOCYTE # 0.6 TH/MM3 (1.0-4.8); MEAN CELL VOLUME 101.1 FL (80.0-100.0); MEAN CORPUSCULAR HEMOGLOBIN 33.2 PG (27.0-34.0); MEAN CORPUSCULAR HGB CONC 32.9 % (32.0-36.0); MONO % 4.8 % (0.0-8.0); NEUT % 91.1 % (16.0-70.0); PLATELET COUNT 340 TH/MM3 (150-450); RED CELL DISTRIBUTION WIDTH 12.8 % (11.6-17.2); WHITE BLOOD COUNT 15.2 TH/MM3 (4.0-11.0)
[2017-05-27 12:00] VITALS: BP 134/78; PULSE 96; RESP 20; TEMP 98; O2SAT 94
[2017-05-27] MEDS ORDERED: POTASSIUM CHLORIDE 25 MEQ EFFERVESCENT TAB PO ONE (12:00)
[2017-05-27] MEDS ORDERED: SYMB160A INH (12:10)
[2017-05-27] MEDS ORDERED: LISI-515 PO (12:10)
[2017-05-27] MEDS ORDERED: SULF1TAB58 PO (12:10)
[2017-05-27] MEDS ORDERED: METO25TA3 PO (12:10)
[2017-05-27] MEDS ORDERED: DIAZ5 PO (12:10)
[2017-05-27] MEDS ORDERED: PRED10 PO (12:10)
--- NOTE | 2017-05-27 12:12 | HHI.DS ---
Discharge Summary Admission Date May 11, 2017 at 09:36 Discharge Date: May 27, 2017 Admitting Diagnosis altered mental status/intubated/severe hyponatremia (1) Acute encephalopathy ICD Code: G93.40 - Encephalopathy, unspecified Diagnosis: Principal Status: Acute (2) Acute respiratory failure ICD Code: J96.00 - Acute respiratory failure, unspecified whether with hypoxia or hypercapnia Diagnosis: Principal Status: Acute (3) Severe sepsis ICD Code: A41.9 - Sepsis, unspecified organism; R65.20 - Severe sepsis without septic shock Diagnosis: Principal Status: Acute (4) Acute kidney injury ICD Code: N17.9 - Acute kidney failure, unspecified Diagnosis: Principal Status: Acute (5) Acute hyperkalemia ICD Code: E87.5 - Hyperkalemia Diagnosis: Principal Status: Acute (6) Probable pneumonia Diagnosis: Principal Status: Acute (7) Probable CBD obstruction Diagnosis: Principal Status: Acute (8) Leukocytosis ICD Code: D72.829 - Elevated white blood cell count, unspecified Diagnosis: Principal Status: Acute (9) Rhabdomyolysis ICD Code: M62.82 - Rhabdomyolysis Diagnosis: Principal Status: Acute (10) Dehydration ICD Code: E86.0 - Dehydration Diagnosis: Principal Status: Resolved (11) Hyponatremia ICD Code: E87.1 - Hypo-osmolality and hyponatremia Diagnosis: Principal Status: Resolved Procedures none Brief History - From Admission Patient is a 71-year-old female with known past medical history of left breast cancer, tobacco abuse. Unfortunately no further history can be obtained as the patient is intubated and there is no family available. According to the ER history, patient was brought in by EMS after neighbors found her down on the floor, unresponsive. She was found with shallow respirations hypopneic and was intubated for airway protection. She was last seen normal about 1-1/2 days ago. In the ER patient remained unresponsive. CT of the head was unremarkable. Abnormal labs included a white count of 15.9 with 88% neutrophils , sodium 129 potassium 6.5, BUN 24 and creatinine of 1.35. CPK was elevated at 528. Patient received IV fluid boluses. Patient's elevated white count and altered mentation was suspicious for sepsis. I have ordered CT chest abdomen pelvis which showed mild chest infiltrates, and evidence of common bile duct obstruction (bilateral dilated biliary tree, main pancreatic duct, and gallbladder dilation). I have started patient on Zosyn 3.375 g every 6 hours, and single dose of vancomycin. Gastroenterology had been consulted. Initial K was 6.5 but this was hemolyzed. Repeat CMP is pending I evaluated patient in ED. patient is clinically dehydrated and remains encephalopathy. Additional fluid boluses ordered and start antibiotics STAT, if not given in ED. Gastroenterology had been consulted for possible common bile duct obstruction CBC/BMP: 05/27/17 0948 05/26/17 0713 Significant Findings Laboratory Tests Test 05/24/17 19:15 05/25/17 08:38 05/26/17 07:13 05/27/17 09:48 Potassium Level 2.3 MEQ/L (3.5-5.1) 2.4 MEQ/L (3.5-5.1) 2.3 MEQ/L (3.5-5.1) White Blood Count 16.9 TH/MM3 (4.0-11.0) 15.2 TH/MM3 (4.0-11.0) Red Blood Count 3.75 MIL/MM3 (4.00-5.30) 3.50 MIL/MM3 (4.00-5.30) Mean Corpuscular Volume 101.4 FL (80.0-100.0) 101.1 FL (80.0-100.0) Platelet Count 456 TH/MM3 (150-450) Neutrophils (%) (Auto) 86.5 % (16.0-70.0) 91.1 % (16.0-70.0) Lymphocytes (%) (Auto) 5.4 % (9.0-44.0) 3.7 % (9.0-44.0) Neutrophils # (Auto) 14.7 TH/MM3 (1.8-7.7) 13.8 TH/MM3 (1.8-7.7) Lymphocytes # (Auto) 0.9 TH/MM3 (1.0-4.8) 0.6 TH/MM3 (1.0-4.8) Monocytes # (Auto) 1.3 TH/MM3 (0-0.9) Random Glucose 139 MG/DL (74-106) 122 MG/DL (74-106) Calcium Level 8.3 MG/DL (8.5-10.1) 7.9 MG/DL (8.5-10.1) Sodium Level 152 MEQ/L (136-145) 147 MEQ/L (136-145) Chloride Level 110 MEQ/L (98-107) Carbon Dioxide Level 35.8 MEQ/L (21.0-32.0) 34.8 MEQ/L (21.0-32.0) Estimat Glomerular Filtration Rate 87 ML/MIN (>89) Imaging Last Impressions Chest X-Ray 05/24/17 0000 Signed Impressions: Service Date/Time: May 11:33 - CONCLUSION: 1. Minimal stable bibasilar airspace disease. 2. Note acute abnormality or significant interval change. Dav Amado MD Head CT 05/20/17 1100 Signed Impressions: Service Date/Time: Saturday, May 20, 2017 11:42 - CONCLUSION: 1. Remote right basal ganglia infarct. 2. No change from previous study. Molina Henry MD Brain MRI 05/20/17 0000 Signed Impressions: Service Date/Time: Saturday, May 20, 2017 17:04 - CONCLUSION: Chronic atrophic and small vessel ischemic changes, old infarction on the right without any evidence for acute hemorrhage or mass effect. Halley Polk MD Cholangiopancreatography MRI 05/13/17 0000 Signed Impressions: Service Date/Time: Saturday, May 13, 2017 10:43 - CONCLUSION: 1. Intra-and extrahepatic biliary ductal dilatation again noted with several small low signal filling defects in the distal common bile duct of concern for small stones. 2. The gallbladder remains distended in appearance with no definite evidence of scoliotic lithiasis or inflammatory change. Anjum Moon MD Chest CT 05/11/17 0936 Signed Impressions: Service Date/Time: Thursday, May 11, 2017 11:35 - CONCLUSION: 1. Small bilateral noncalcified pulmonary nodules ranging in size up to 7.6 mm. 2. Left lower lobe, right middle lobe and lingular airspace disease 3. No evidence of malignant lymphadenopathy 4. Collapsed bilateral breast implants. 5. Biliary duct dilatation Ihsan Perdomo MD Abdomen/Pelvis CT 05/11/17 0936 Signed Impressions: Service Date/Time: Thursday, May 11, 2017 11:35 - CONCLUSION: 1. Dilated biliary tree and main pancreatic duct with associated distention of the gallbladder characteristic of a distal common bile duct obstructing process. 2. No evidence of a pancreatic mass 3. Post surgical clip is identified in the dequan hepatis which may be related to the patient's obstructive process. 4. Side port of nasogastric tube is in the distal esophagus. Ihsan Perdomo MD Pelvis X-Ray 05/11/17 0756 Signed Impressions: Service Date/Time: Thursday, May 11, 2017 07:58 - CONCLUSION: No definite acute bony injury Jeffery Donaldson MD PE at Discharge GENERAL: NAD SKIN: Warm and dry. HEAD: Normocephalic. EYES: No scleral icterus. No injection or drainage. NECK: Supple, trachea midline. No JVD or lymphadenopathy. CARDIOVASCULAR: Regular rate and rhythm without murmurs, gallops, or rubs. RESPIRATORY: Breath sounds equal bilaterally. No accessory muscle use. GASTROINTESTINAL: Abdomen soft, non-tender, nondistended. MUSCULOSKELETAL: No cyanosis, or edema. BACK: Nontender without obvious deformity. No CVA tenderness. Hospital Course Prior to being discharged to hospice, patient was treated for: Acute toxic metabolic encephalopathy Probable benzodiazepine overdose Probable prescription drug abuse -Initial CT scan was negative for any acute findings. -B12, TSH Ammonia normal, and EEG normal -Neurologist and psychiatrist were consulted. -Psychiatrist ff Chronic left-sided spasticity She was started on Valium 5 mg twice a day Hypernatremia She was treated with D5 water Other electrode abnormalities including hypokalemia were replaced accordingly Acute respiratory failure-resolved Bilateral pneumonia/aspiration (MRSA, serratia) Tobacco abuse, possible COPD - DuoNeb scheduled and when necessary - CT chest shows mild bilateral infiltrates pneumonia versus aspiration -She completed Completed broad-spectrum with Zosyn and Zyvox -Pulmonary medicine was consulted Hypertension -She was treated with Metoprolol and lisinopril. MRCP shows probable distal CBD stones - PTHC unsuccessful, no further procedures planned by GI IR - CT abdomen pelvis shows dilated biliary tree, dilated main pancreatic duct, and dilated gallbladder suggestive of distal gallbladder obstruction - MRCP with probable distal CBD stones - Gastroenterology unable to complete ERCP - She was placed on IV pantoprazole Acute kidney injury- secondary to dehydration Rhabdomyolysis-resolved with IV fluid hydration Severe sepsis-Resolved Pre hospital aspiration pneumonitis versus pneumonia (MRSA, serratia) Probable common biliary duct obstruction - She Completed Zosyn and Zyvox - Urine for Legionella and pneumococcal antigen neg - Sputum cx 05/13 MRSA and Serratia DVT prophylaxis Bilateral lower extremity SCDs. SQ Lovenox, Protonix Pt Condition on Discharge: Deteriorating Discharge Disposition: Hospice/Med Facility Discharge Time: > 30 minutes Discharge Instructions DIET: Follow Instructions for: Heart Healthy Diet Activities you can perform: Regular-No Restrictions New Medications: Budesonide-Formoterol Inh (Symbicort Inh) 160-4.5 Mcg/Act Aero 1 PUFF INH Q12HR for Breathing Treatment, #1 INHALER Diazepam (Valium) 5 Mg Tab 5 MG PO Q12HR for Immunosuppression, #60 TAB Lisinopril (Lisinopril) 20 Mg Tab 20 MG PO DAILY for Blood Pressure Management, #30 TAB Metoprolol Tartrate (Metoprolol Tartrate) 25 Mg Tab 12.5 MG PO Q12HR for Blood Pressure Management, #60 TAB Prednisone (Prednisone) 10 Mg Tab 10 MG PO DAILY for Breathing Treatment, #5 TAB Sulfamethoxazole/Trimethoprim (Sulfamethoxazole-Tmp Ss Tablet) 400 Mg-80 Mg Tablet 1 TAB PO Q12HR for Infection, #10 MG Molina Hutchinson MD May 27, 2017 12:12
[2017-05-27 12:26] LABS: BICARBONATE 31.8 MEQ/L (21.0-32.0)
[2017-05-27 12:49] LABS: POTASSIUM 2.7 MEQ/L (3.5-5.1)
== END 2017-05-27 14:16 | disposition hospice, inpatient (51) | DRG 870 ==
LOC: NEPC 07:12 → NEDA 09:36 → HIMN 11:45 → N05A 05-18 00:43 → N05B 05-20 22:01
PROVIDERS: ADMIT Internal Medicine; ATTEND Hospitalist
PROC: 5A1955Z Respiratory Ventilation, Greater than 96 Consecutive Hours (ICD-10-PCS; principal; 2017-05-11)
PROC: 0FJB8ZZ Inspection of Hepatobiliary Duct, Via Natural or Artificial Opening Endoscopic (ICD-10-PCS; 2017-05-12)
PROC: 0DJ08ZZ Inspection of Upper Intestinal Tract, Via Natural or Artificial Opening Endoscopic (ICD-10-PCS; 2017-05-12)
PROC: 0FJB3ZZ Inspection of Hepatobiliary Duct, Percutaneous Approach (ICD-10-PCS; 2017-05-14)
DX: A41.9 Sepsis, unspecified organism (principal); J96.00 Acute respiratory failure, unspecified whether with hypoxia or hypercapnia; G92 Toxic encephalopathy; J69.0 Pneumonitis due to inhalation of food and vomit; N17.9 Acute kidney failure, unspecified; J15.212 Pneumonia due to Methicillin resistant Staphylococcus aureus; J15.6 Pneumonia due to other Gram-negative bacteria; E87.0 Hyperosmolality and hypernatremia; K80.51 Calculus of bile duct without cholangitis or cholecystitis with obstruction; J44.0 Chronic obstructive pulmonary disease with (acute) lower respiratory infection; M62.82 Rhabdomyolysis; E87.1 Hypo-osmolality and hyponatremia; F05 Delirium due to known physiological condition; E46 Unspecified protein-calorie malnutrition; R64 Cachexia; E86.0 Dehydration; E87.5 Hyperkalemia; K29.70 Gastritis, unspecified, without bleeding; E87.6 Hypokalemia; R65.20 Severe sepsis without septic shock; Z51.5 Encounter for palliative care; T42.4X1A Poisoning by benzodiazepines, accidental (unintentional), initial encounter; F13.10 Sedative, hypnotic or anxiolytic abuse, uncomplicated; I10 Essential (primary) hypertension; R25.2 Cramp and spasm; G89.29 Other chronic pain; F42.9 Obsessive-compulsive disorder, unspecified; F41.9 Anxiety disorder, unspecified; F32.9 Major depressive disorder, single episode, unspecified; G09 Sequelae of inflammatory diseases of central nervous system; Z92.21 Personal history of antineoplastic chemotherapy; Z85.3 Personal history of malignant neoplasm of breast; Z87.891 Personal history of nicotine dependence
CPT/HCPCS: 36600; 51702; 70450; 70553; 71010; 71260; 72170; 74177; 74181; 76377; 76937; 77003; 80048; 80053; 80202; 80307; 81001; 82140; 82550; 82552; 82565; 82607; 82805; 82948; 83605; 83690; 83735; 84100; 84132; 84443; 84484; 85025; 85027; 85610; 85730; 86403; 87040; 87070; 87077; 87147; 87186; 87205; 87449; 87641; 93005; 93306; 94002; 94003; 94150; 94640; 94664; 95819; 96374; A9579; C1769; C9113; J0610; J1650; J1940; J1956; J2020; J2060; J2543; J2920; J3010; J3370; J3475; J3480; J7030; J7050; J7512; Q9967